=== PATIENT | male | born 1940 | race Caucasian/White ===

== ENCOUNTER 2019-04-28 07:12 | Outpatient (CLI) | payer MEDICARE, SELFPAY ==
--- NOTE | ~2019-04-28 | MR_ITS ---
EXAMINATION: MR lumbar spine wo con EXAM DATE: 04/28/2019 08:22 INDICATION: Lumbar radiculopathy. TECHNIQUE: Multi-sequential, multiplanar MR images of the lumbar spine were obtained without contrast . Sagittal T1, T2, T2 fat saturation images. Axial T2 weighted images. There is no prior study for comparison. FINDINGS: The vertebral bodies are aligned in the AP dimension. There is mild to moderate disc diseas e at all thoracolumbar levels. There are scattered lumbar hemangiomas most notable in L1, L2 and L5 v ertebral bodies. Paraspinal soft tissue is unremarkable. Right renal lesion imaged portion consistent with a cyst measuring 4 cm. The conus medullaris terminates at the T12-L1 level and has normal signa l intensity and morphology. Level by level evaluation: T12-L1: Disc does not extend beyond the endplate margin. Facet arthropathy: Mild. Neural foraminal stenosis: No stenosis. Central canal stenosis: No stenosis. L1-L2: There is a minimal diffuse disc bulge. Facet arthropathy: Mild. Neural foraminal stenosis: No stenosis. Central canal stenosis: No stenosis. L2-L3: There is a minimal diffuse disc bulge. Facet arthropathy: Mild. Neural foraminal stenosis: No stenosis. Central canal stenosis: No stenosis. L3-L4: There is a mild to moderate diffuse disc bulge. Facet arthropathy: Mild to moderate. Neural foraminal stenosis: Mild bilateral. Central canal stenosis: Mild. L4-L5: There is a moderate diffuse disc bulge. Facet arthropathy: Moderate . Ligamentum flavum enlargement. Small left synovial cyst projecting inte rnally. Neural foraminal stenosis: Mild to moderate left, mild right. Central canal stenosis: Mild to moderate. Left lateral recess narrowing.. L5-S1: There is a mild diffuse disc bulge. Facet arthropathy: Mild. Neural foraminal stenosis: Mild bilateral. Central canal stenosis: Mild. IMPRESSION: 1. Mild to moderate lumbar spondylosis. Reviewed, dictated and finalized at location A.
== END 2019-04-28 07:13 | disposition home or self-care (01) ==
PROVIDERS: PCP Family Medicine; Visit Provider Orthopaedic Surgery
DX: M47.26 Other spondylosis with radiculopathy, lumbar region (principal)
CPT/HCPCS: 72148

== ENCOUNTER 2019-10-23 10:18 | Outpatient (CLI) | payer MEDICARE, SELFPAY ==
[2019-10-23 10:58] LABS: Hematocrit 42.5 % (42.0-52.0); Hemoglobin 13.8 g/dL (14.0-18.0); Mean Corpuscular HGB Conc 32.5 g/dl (32-36); Mean Corpuscular Volume 95.5 fl (80-100); Mean Platelet Volume 10.5 fl (7.4-10.4); Platelet Count Result 174 k/mm3 (150-375); Red Blood Count 4.45 M/mm3 (4.6-6.20); Red Cell Distribution Width 12.8 % (11.5-14.5); White Blood Count 5.7 K/mm3 (4.5-10.0)
[2019-10-23 11:17] LABS: Alanine Aminotransferase 31 U/L (4-50); Alkaline Phosphatase 69 U/L (38-126); Anion Gap 5 mmol/L (8-16); Aspartate Amino Transferase 31 U/L (17-59); Bilirubin,Total 0.7 mg/dL (0.2-1.3); Blood Urea Nitrogen 21 mg/dL (9-20); Calcium 9.4 mg/dL (8.4-10.2); Carbon Dioxide 29 mmol/L (22-30); Chloride 102 mmol/L (98-107); Cholesterol 146 mg/dL (0-200); Estimated Glomerular Filt Rate 49; Glucose 158 mg/dL (75-110); HDL Direct 27 mg/dL; Potassium 4.7 mmol/L (3.4-5.0); Sodium 136 mmol/L (137-145); Triglycerides 268 mg/dL (<150)
[2019-10-23 11:29] LABS: LDL Cholesterol Direct 70 mg/dL
== END 2019-10-23 10:19 | disposition home or self-care (01) ==
PROVIDERS: PCP Family Medicine; Visit Provider Physician Assistant Medical
DX: E78.2 Mixed hyperlipidemia (principal); E11.9 Type 2 diabetes mellitus without complications; I10 Essential (primary) hypertension; Z13.220 Encounter for screening for lipoid disorders
CPT/HCPCS: 36415; 80053; 80061; 84443; 85027

== ENCOUNTER 2019-12-27 06:43 | Outpatient (NON) | payer MEDICARE, SELFPAY ==
[2019-12-28 01:03] LABS: SARS-CoV-2 RNA PCR Negative
== END 2019-12-27 06:44 ==
LOC: ANHCOVIDDT 06:43
PROVIDERS: PCP Family Medicine; Visit Provider Nurse Practitioner Family
DX: Z20.828 Contact with and (suspected) exposure to other viral communicable diseases (principal); R68.89 Other general symptoms and signs
CPT/HCPCS: 87635; C9803; U0003

== ENCOUNTER 2020-02-10 14:19 | Outpatient (CLI) | payer MEDICARE, SELFPAY ==
[2020-02-10 15:08] LABS: Anion Gap 10 mmol/L (8-16); Blood Urea Nitrogen 21 mg/dL (9-20); Calcium 9.7 mg/dL (8.4-10.2); Carbon Dioxide 26 mmol/L (22-30); Chloride 103 mmol/L (98-107); Estimated Glomerular Filt Rate 53; Glucose 147 mg/dL (75-110); Potassium 4.3 mmol/L (3.4-5.0); Sodium 139 mmol/L (137-145)
== END 2020-02-10 14:20 | disposition home or self-care (01) ==
PROVIDERS: PCP Family Medicine; Visit Provider Physician Assistant Medical
DX: N28.9 Disorder of kidney and ureter, unspecified (principal)
CPT/HCPCS: 36415; 80048

== ENCOUNTER → 2020-06-30 08:34 | Outpatient (CLI) | payer MEDICARE, SELFPAY ==
--- NOTE | ~2020-06-30 | XR_ITS ---
XR_CERV2-3V_CR DATE: 06/30/2020 08:57 INDICATION: Neck pain TECHNIQUE: Lateral, swimmer's, AP, open-mouth and odontoid views COMPARISON: 08/17/2009 cervical spine FINDINGS: Straightening of the cervical spine. C1 and C2 are normally aligned and the odontoid process is intact. No fracture or dislocation or locked facet or prevertebral soft tissue swelling. Very prominent anterior spurring at C3-4 and particularly C4-5, C5-C6 and C6-7 with moderately promin ent loss of disc space height at C5-6 and greater at C6-7. IMPRESSION: Multilevel degenerative disc disease, most severe at C6-7 Straightening of the cervical spine Reviewed, dictated and finalized at Location A. Reviewed, dictated and finalized at location B.
== END ==
PROVIDERS: PCP Family Medicine; Visit Provider Physician Assistant Medical
DX: M47.812 Spondylosis without myelopathy or radiculopathy, cervical region (principal)
CPT/HCPCS: 72040

== ENCOUNTER 2020-09-08 09:39 | Outpatient (CLI) | payer MEDICARE, SELFPAY ==
--- NOTE | ~2020-09-08 | XR_ITS ---
EXAMINATION: XR chest 2V 09/08/2020 10:02 INDICATION: Cough PROCEDURE: 2 view chest COMPARISON: 04/06/2018 FINDINGS: The lungs are clear. The cardiomediastinal silhouette is within normal limits. There are no pleural effusions. There is no pneumothorax suspected. IMPRESSION: 1: NO ACUTE CARDIOPULMONARY DISEASE. Reviewed, dictated and finalized at location A.
== END 2020-09-08 09:40 | disposition home or self-care (01) ==
PROVIDERS: PCP Family Medicine; Visit Provider Nurse Practitioner Family
DX: R05 Cough (principal)
CPT/HCPCS: 71046

== ENCOUNTER 2020-11-27 06:43 | Outpatient (CLI) | payer MEDICARE, SELFPAY ==
[2020-11-27 07:36] LABS: Hematocrit 40.7 % (42.0-52.0); Hemoglobin 13.2 g/dL (14.0-18.0); Mean Corpuscular HGB Conc 32.4 g/dl (32-36); Mean Corpuscular Hemoglobin 31.9 pg (26-34); Mean Corpuscular Volume 98.3 fl (80-100); Mean Platelet Volume 9.9 fl (7.4-10.4); Platelet Count Result 203 k/mm3 (150-375); Red Blood Count 4.14 M/mm3 (4.6-6.20); Red Cell Distribution Width 12.8 % (11.5-14.5); White Blood Count 8.6 K/mm3 (4.5-10.0)
[2020-11-27 08:04] LABS: Alanine Aminotransferase 38 U/L (4-50); Albumin Level 4.1 g/dL (3.5-5.1); Alkaline Phosphatase 75 U/L (38-126); Anion Gap 8 mmol/L (8-16); Aspartate Amino Transferase 31 U/L (17-59); Bilirubin,Total 0.8 mg/dL (0.2-1.3); Blood Urea Nitrogen 23 mg/dL (9-20); Calcium 9.3 mg/dL (8.4-10.2); Carbon Dioxide 26 mmol/L (22-30); Chloride 105 mmol/L (98-107); Cholesterol 126 mg/dL (0-200); Estimated Glomerular Filt Rate 49; Glucose 170 mg/dL (65-110); HDL Direct 26 mg/dL; Sodium 139 mmol/L (137-145); Triglycerides 312 mg/dL (<150)
[2020-11-27 08:10] LABS: LDL Cholesterol Direct 48 mg/dL
[2020-11-27 08:27] LABS: Prostate Specific Antigen 2.1 ng/mL (< OR = 4.0)
[2020-11-27 08:32] LABS: Creatinine Urine 124.3 mg/dL
[2020-11-27 14:15] LABS: Microalbumin Urine Random < 6.0 mg/L (0-16.7)
[2020-11-27 14:16] LABS: MALB Creatinine Ratio < 4.8 mg/g (0-30)
== END 2020-11-27 06:44 | disposition home or self-care (01) ==
PROVIDERS: PCP Family Medicine; Visit Provider Physician Assistant Medical
DX: E11.9 Type 2 diabetes mellitus without complications (principal); E78.2 Mixed hyperlipidemia; Z12.5 Encounter for screening for malignant neoplasm of prostate; N28.9 Disorder of kidney and ureter, unspecified
CPT/HCPCS: 36415; 80053; 80061; 82043; 84153; 85027; G0103

== ENCOUNTER 2020-12-07 08:48 | Outpatient (CLI) | payer MEDICARE, SELFPAY ==
[2020-12-07 09:29] LABS: Anion Gap 6 mmol/L (8-16); Blood Urea Nitrogen 23 mg/dL (9-20); Calcium 9.3 mg/dL (8.4-10.2); Carbon Dioxide 27 mmol/L (22-30); Chloride 104 mmol/L (98-107); Estimated Glomerular Filt Rate 49; Glucose 162 mg/dL (65-110); Potassium 4.7 mmol/L (3.4-5.0); Sodium 137 mmol/L (137-145)
== END 2020-12-07 08:49 | disposition home or self-care (01) ==
PROVIDERS: PCP Family Medicine; Visit Provider Physician Assistant Medical
DX: N28.9 Disorder of kidney and ureter, unspecified (principal)
CPT/HCPCS: 36415; 80048

== ENCOUNTER 2021-02-19 13:58 | Outpatient (CLI) | payer MEDICARE, SELFPAY ==
--- NOTE | ~2021-02-19 | US_ITS ---
EXAMINATION: US venous doppler [facility] DATE: 02/19/2021 15:24 INDICATION: Right lower limb swelling. TECHNIQUE: Grayscale ultrasound images without and with compression and Doppler ultrasound images of the bilateral lower extremity veins were obtained. COMPARISON: Ultrasound 02/05/2004 FINDINGS: The visualized portions of right common femoral vein, profunda (deep) femoral vein, femoral vein, pop liteal vein, peroneal veins, posterior tibial veins, and greater saphenous vein outflow are patent. The visualized portions of left common femoral vein, profunda femoral vein, femoral vein, popliteal v ein, peroneal veins, posterior tibial veins, and greater saphenous vein outflow are patent. There is a small left-sided Flood's cyst. IMPRESSION: 1. No deep venous thrombosis. 2. Small left-sided Flood's cyst. Reviewed, dictated and finalized at location A. 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
[2021-02-19 15:08] LABS: Anion Gap 8 mmol/L (8-16); Blood Urea Nitrogen 16 mg/dL (9-20); Calcium 9.4 mg/dL (8.4-10.2); Carbon Dioxide 28 mmol/L (22-30); Chloride 102 mmol/L (98-107); Estimated Glomerular Filt Rate 53; Glucose 224 mg/dL (65-110); Potassium 4.4 mmol/L (3.4-5.0); Sodium 138 mmol/L (137-145)
[2021-02-19 15:17] LABS: NT Pro B Type Natriuretic Pept 124 pg/mL (5-100)
== END 2021-02-19 13:59 | disposition home or self-care (01) ==
PROVIDERS: PCP Family Medicine; Visit Provider Physician Assistant Medical
DX: M79.661 Pain in right lower leg (principal); M79.89 Other specified soft tissue disorders; R60.9 Edema, unspecified; I50.21 Acute systolic (congestive) heart failure
CPT/HCPCS: 36415; 80048; 83880; 84443; 93970

== ENCOUNTER 2021-12-30 08:59 | Outpatient (CLI) | payer MEDICARE, SELFPAY ==
[2021-12-30 09:53] LABS: Appearance Urine Clear (Clear); Bilirubin Urine Negative (Negative); Blood Urine Negative (Negative); Color Urine Yellow (Yellow); Glucose Urine UA 3+ mg/dL (Negative); Ketones Urine Negative (Negative); Leukocyte Esterase Ur Negative LEU/UL (Negative); Nitrate Urine Negative (Negative); Protein Urine Negative (Negative); Urobilinogen Urine 0.2 mg/dL (<2.0); pH Urine 5.5 (5.0-9.0)
[2021-12-30 09:58] LABS: Squamous Epithelial Cell Urine Rare /hpf (Few); WBC Urine 0-3 /hpf
--- NOTE | 2021-12-30 10:01 | ECG_ITS ---
Measurements Intervals [place] Rate: 58 P: 34 CA: 273 QRS: -16 QRSD: 110 T: 12 QT: 401 QTc: 396 Interpretive Statements SINUS BRADYCARDIA WITH SINUS ARRHYTHMIA WITH FIRST DEGREE AV BLOCK DELAYED PRECORDIAL R/S TRANSITION ABNORMAL ECG NO PREVIOUS ECG AVAILABLE FOR COMPARISON Electronically Signed On 12-30-2021 10:14:17 [employer] by Dhruv Patterson D.O.
[2021-12-30 10:12] LABS: Hematocrit 40.5 % (42.0-52.0); Hemoglobin 12.9 g/dL (14.0-18.0); Mean Corpuscular HGB Conc 31.9 g/dl (32-36); Mean Corpuscular Hemoglobin 30.4 pg (26-34); Mean Corpuscular Volume 95.3 fl (80-100); Mean Platelet Volume 10.2 fl (7.4-10.4); Platelet Count Result 205 k/mm3 (150-375); Red Blood Count 4.25 M/mm3 (4.6-6.20); Red Cell Distribution Width 13.4 % (11.5-14.5); White Blood Count 7.5 K/mm3 (4.5-10.0)
[2021-12-30 10:22] LABS: Add Urine Microscopic? YES
[2021-12-30 10:37] LABS: NT Pro B Type Natriuretic Pept 79 pg/mL (5-100)
[2021-12-30 10:46] LABS: Anion Gap 10 mmol/L (8-16); Blood Urea Nitrogen 21 mg/dL (9-20); Calcium 8.8 mg/dL (8.4-10.2); Carbon Dioxide 26 mmol/L (22-30); Chloride 104 mmol/L (98-107); Estimated Glomerular Filt Rate 49; Glucose 155 mg/dL (65-110); Potassium 4.6 mmol/L (3.4-5.0); Sodium 140 mmol/L (137-145)
== END 2021-12-30 09:00 | disposition home or self-care (01) ==
PROVIDERS: PCP Family Medicine; Referring Provider Physician Assistant Medical; Visit Provider Nurse Practitioner Family
DX: Z01.818 Encounter for other preprocedural examination (principal); R60.9 Edema, unspecified; R94.31 Abnormal electrocardiogram [ECG] [EKG]
CPT/HCPCS: 36415; 80048; 81001; 83880; 84443; 85027; 93005

== ENCOUNTER 2022-03-03 14:43 | Outpatient (CLI) | payer MEDICARE, SELFPAY ==
[2022-03-03 15:31] LABS: Basophils Absolute Auto 0.1 K/mm3 (0.0-0.1); Basophils Percent Auto 0.9 % (0.2-1.2); Eosinophils Absolute Auto 0.5 K/mm3 (0-0.3); Eosinophils Percent Auto 7.5 % (0-4.4); Hematocrit 44.4 % (42.0-52.0); Immature Granulocyte Absolute 0.03 K/mm3 (0.00-0.031); Immature Granulocyte Percent A 0.4 % (0-0.5); Lymphocytes Absolute Auto 1.46 K/mm3 (0.9-3.2); Lymphocytes Percent Auto 21.5 % (18.3-44.2); Mean Corpuscular HGB Conc 31.5 g/dl (32-36); Mean Corpuscular Hemoglobin 30.1 pg (26-34); Mean Corpuscular Volume 95.5 fl (80-100); Mean Platelet Volume 10.4 fl (7.4-10.4); Monocytes Absolute Auto 0.7 K/mm3 (0.1-0.6); Monocytes Percent Auto 10.3 % (2.6-8.5); Neutrophils Percent Auto 59.4 % (45.5-73.1); Platelet Count Result 213 k/mm3 (150-375); Red Blood Count 4.65 M/mm3 (4.6-6.20); Red Cell Distribution Width 13.5 % (11.5-14.5); White Blood Count 6.8 K/mm3 (4.5-10.0)
[2022-03-03 15:42] LABS: Anion Gap 7 mmol/L (8-16); Blood Urea Nitrogen 15 mg/dL (9-20); Calcium 9.1 mg/dL (8.4-10.2); Carbon Dioxide 25 mmol/L (22-30); Chloride 106 mmol/L (98-107); Estimated Glomerular Filt Rate 49; Glucose 166 mg/dL (65-110); Potassium 4.4 mmol/L (3.4-5.0); Sodium 138 mmol/L (137-145)
== END 2022-03-03 14:44 | disposition home or self-care (01) ==
LOC: ANHLAB 14:46
PROVIDERS: PCP Family Medicine; Visit Provider Physician Assistant Medical
DX: R19.7 Diarrhea, unspecified (principal)
CPT/HCPCS: 36415; 80048; 85025

== ENCOUNTER 2022-07-01 14:52 | Outpatient (CLI) | payer MEDICARE, SELFPAY ==
[2022-07-01 15:46] LABS: Basophils Absolute Auto 0.1 K/mm3 (0.0-0.1); Basophils Percent Auto 0.9 % (0.2-1.2); Eosinophils Absolute Auto 0.5 K/mm3 (0-0.3); Eosinophils Percent Auto 6.3 % (0-4.4); Hematocrit 41.4 % (42.0-52.0); Hemoglobin 13.4 g/dL (14.0-18.0); Immature Granulocyte Absolute 0.03 K/mm3 (0.00-0.031); Immature Granulocyte Percent A 0.4 % (0-0.5); Lymphocytes Absolute Auto 1.27 K/mm3 (0.9-3.2); Lymphocytes Percent Auto 15.7 % (18.3-44.2); Mean Corpuscular HGB Conc 32.4 g/dl (32-36); Mean Corpuscular Volume 95.8 fl (80-100); Mean Platelet Volume 10.8 fl (7.4-10.4); Monocytes Absolute Auto 0.8 K/mm3 (0.1-0.6); Monocytes Percent Auto 9.4 % (2.6-8.5); Neutrophils Absolute Auto 5.4 K/mm3 (1.3-6.7); Neutrophils Percent Auto 67.3 % (45.5-73.1); Platelet Count Result 191 k/mm3 (150-375); Red Blood Count 4.32 M/mm3 (4.6-6.20); Red Cell Distribution Width 13.2 % (11.5-14.5); White Blood Count 8.1 K/mm3 (4.5-10.0)
[2022-07-01 15:48] LABS: Appearance Urine Clear (Clear); Bilirubin Urine Negative (Negative); Blood Urine Negative (Negative); Color Urine Yellow (Yellow); Glucose Urine UA 3+ mg/dL (Negative); Ketones Urine Negative (Negative); Leukocyte Esterase Ur Negative LEU/UL (Negative); Nitrate Urine Negative (Negative); Protein Urine Negative (Negative); Specific Grav Ur 1.023 (1.001-1.035); Urobilinogen Urine 0.2 mg/dL (<2.0)
[2022-07-01 15:56] LABS: Add Urine Microscopic? NO
[2022-07-01 16:03] LABS: Anion Gap 11 mmol/L (8-16); Blood Urea Nitrogen 27 mg/dL (9-20); Calcium 9.1 mg/dL (8.4-10.2); Carbon Dioxide 22 mmol/L (22-30); Chloride 103 mmol/L (98-107); Estimated Glomerular Filt Rate 49; Glucose 254 mg/dL (65-110); Potassium 4.8 mmol/L (3.4-5.0); Sodium 136 mmol/L (137-145)
== END 2022-07-01 14:53 | disposition home or self-care (01) ==
PROVIDERS: PCP Family Medicine; Visit Provider Orthopaedic Surgery
DX: M17.12 Unilateral primary osteoarthritis, left knee (principal); E11.9 Type 2 diabetes mellitus without complications; N28.9 Disorder of kidney and ureter, unspecified; I10 Essential (primary) hypertension
CPT/HCPCS: 36415; 80048; 81003; 83036; 85025

== ENCOUNTER 2022-08-17 08:41 | Outpatient (CLI) | payer MEDICARE, SELFPAY ==
--- NOTE | 2022-08-17 11:15 | NEURO_ITS ---
Impression: # Complains of weakness/cramping in left upper extremity. Patient is diabetic. # Evolving mild Carpal Tunnel Syndrome bilaterally. # Needle/EMG revealed decreased motor unit potentials bilaterally diffusely without fibrillations,compatible with complaints of weakness. Nerve Conduction Studies Anti Sensory Summary Table Stim Site NR Peak (ms) P-T Amp (?V) Site1 Site2 Delta-P (ms) Dist (cm) Han (m/s) Left Median Anti Sensory (2-3nd Digit) Wrist 5.0 17.4 Wrist 2-3nd Digit 5.0 14.0 28 Wrist 4.1 16.5 Wrist 2-3nd Digit 5.0 14.0 28 Right Median Anti Sensory (2-3nd Digit) Wrist 4.6 22.9 Wrist 2-3nd Digit 4.6 14.0 30 Wrist 4.2 23.6 Wrist 2-3nd Digit 4.6 14.0 30 Left Radial Anti Sensory (Base 1st Digit) Wrist 3.2 19.9 Wrist Base 1st Digit 3.2 0.0 Right Radial Anti Sensory (Base 1st Digit) Wrist 2.8 8.7 Wrist Base 1st Digit 2.8 0.0 Left Ulnar Anti Sensory (5th Digit) Wrist 3.4 33.8 Wrist 5th Digit 3.4 14.0 41 Right Ulnar Anti Sensory (5th Digit) Wrist 4.0 15.0 Wrist 5th Digit 4.0 14.0 35 Motor Summary Table Stim Site NR Onset (ms) O-P Amp (mV) Site1 Site2 Delta-0 (ms) Dist (cm) Han (m/s) Left Median Motor (Abd Poll Brev) Wrist 4.0 2.6 Elbow Wrist 6.9 31.0 45 Elbow 10.9 3.8 Right Median Motor (Abd Poll Brev) Wrist 3.8 3.2 Elbow Wrist 6.9 30.0 43 Elbow 10.7 1.6 Left Ulnar Motor (Abd Dig Minimi) Wrist 2.6 4.4 A Elbow Wrist 6.9 31.0 45 A Elbow 9.5 2.6 B Elbow Wrist 5.8 27.0 47 B Elbow 8.4 1.9 Right Ulnar Motor (Abd Dig Minimi) Wrist 2.4 3.0 A Elbow Wrist 7.4 31.0 42 A Elbow 9.8 2.3 F Wave Studies NR F-Lat (ms) L-R F-Lat (ms) Left Median (Mrkrs) (Abd Poll Brev) 33.98 1.19 Right Median (Mrkrs) (Abd Poll Brev) 35.17 1.19 Left Ulnar (Mrkrs) (Abd Dig Min) 33.70 0.33 Right Ulnar (Mrkrs) (Abd Dig Min) 34.03 0.33 EMG Side Muscle Nerve Root Ins Act Fibs Amp Dur Recrt Comment Right 1stDorInt Ulnar C8-T1 Nml Nml Nml >12ms Reduced Right Ext Indicis Radial (Post Int) C7-8 Nml Nml Nml >12ms Reduced Right Ext Digitorum Radial (Post Int) C7-8 Nml Nml Nml >12ms Reduced Right BrachioRad Radial C5-6 Nml Nml Nml >12ms Reduced Right PronatorTeres Median C6-7 Nml Nml Nml >12ms Reduced Right Abd Poll Brev Median C8-T1 Nml Nml Nml >12ms Reduced Left 1stDorInt Ulnar C8-T1 Nml Nml Nml >12ms Reduced Left Ext Indicis Radial (Post Int) C7-8 Nml Nml Nml >12ms Reduced Left Ext Digitorum Radial (Post Int) C7-8 Nml Nml Nml >12ms Reduced Left BrachioRad Radial C5-6 Nml Nml Nml >12ms Reduced Left PronatorTeres Median C6-7 Nml Nml Nml >12ms Reduced Left Abd Poll Brev Median C8-T1 Nml Nml Nml >12ms Reduced MTDD
== END 2022-08-17 08:42 | disposition home or self-care (01) ==
LOC: ANHNEURO 08:42
PROVIDERS: PCP Family Medicine; Visit Provider Plastic Surgery
DX: R53.1 Weakness (principal); G56.03 Carpal tunnel syndrome, bilateral upper limbs
CPT/HCPCS: 95886; 95911

== ENCOUNTER 2022-10-05 13:39 | Outpatient (CLI) | payer MEDICARE, SELFPAY ==
[2022-10-05 14:58] LABS: Basophils Absolute Auto 0.1 K/mm3 (0.0-0.1); Basophils Percent Auto 0.9 % (0.2-1.2); Eosinophils Absolute Auto 0.3 K/mm3 (0-0.3); Eosinophils Percent Auto 4.3 % (0-4.4); Hematocrit 40.4 % (42.0-52.0); Hemoglobin 12.9 g/dL (14.0-18.0); Immature Granulocyte Absolute 0.03 K/mm3 (0.00-0.031); Immature Granulocyte Percent A 0.4 % (0-0.5); Lymphocytes Absolute Auto 1.37 K/mm3 (0.9-3.2); Mean Corpuscular HGB Conc 31.9 g/dl (32-36); Mean Corpuscular Hemoglobin 31.2 pg (26-34); Mean Corpuscular Volume 97.8 fl (80-100); Mean Platelet Volume 10.6 fl (7.4-10.4); Monocytes Absolute Auto 0.8 K/mm3 (0.1-0.6); Monocytes Percent Auto 10.4 % (2.6-8.5); Platelet Count Result 183 k/mm3 (150-375); Red Blood Count 4.13 M/mm3 (4.6-6.20); Red Cell Distribution Width 12.6 % (11.5-14.5); White Blood Count 7.6 K/mm3 (4.5-10.0)
[2022-10-05 15:13] LABS: Anion Gap 8 mmol/L (8-16); Blood Urea Nitrogen 26 mg/dL (9-20); Calcium 9.2 mg/dL (8.4-10.2); Carbon Dioxide 26 mmol/L (22-30); Chloride 101 mmol/L (98-107); Estimated Glomerular Filt Rate 45; Glucose 229 mg/dL (65-110); Potassium 5.2 mmol/L (3.4-5.0); Sodium 135 mmol/L (137-145)
== END 2022-10-05 13:40 | disposition home or self-care (01) ==
LOC: ANHLAB 13:41
PROVIDERS: PCP Family Medicine; Visit Provider Physician Assistant Medical
DX: E11.9 Type 2 diabetes mellitus without complications (principal); I25.10 Atherosclerotic heart disease of native coronary artery without angina pectoris
CPT/HCPCS: 36415; 80048; 85025

== ENCOUNTER 2022-10-19 14:53 | Outpatient (CLI) | payer MEDICARE, SELFPAY ==
[2022-10-19 16:34] LABS: Anion Gap 9 mmol/L (8-16); Blood Urea Nitrogen 26 mg/dL (9-20); Calcium 9.4 mg/dL (8.4-10.2); Carbon Dioxide 25 mmol/L (22-30); Chloride 101 mmol/L (98-107); Estimated Glomerular Filt Rate 45; Glucose 245 mg/dL (65-110); Potassium 4.7 mmol/L (3.4-5.0); Sodium 135 mmol/L (137-145)
== END 2022-10-19 14:54 | disposition home or self-care (01) ==
PROVIDERS: PCP Family Medicine; Visit Provider Physician Assistant Medical
DX: E87.5 Hyperkalemia (principal); N18.30 Chronic kidney disease, stage 3 unspecified
CPT/HCPCS: 36415; 80048

== ENCOUNTER → 2022-11-24 12:12 | Outpatient (CLI) | payer MEDICARE, SELFPAY ==
--- NOTE | ~2022-11-24 | US_ITS ---
Renal-Bladder ultrasound Clinical History: Chronic kidney disease Technique: Real-time sonographic imaging of the kidneys and urinary bladder was performed. Findings: The right kidney measures 10.0 cm in length and the left kidney measures 10.8 cm. There is no hydronephrosis or renal calculus identified. Renal cortical echogenicity is within normal limits. Simple right renal cyst noted. The urinary bladder is partially distended at the time of this exam. No intraluminal echoes are ident ified. No abnormal wall thickening is seen. Impression: No significant abnormality seen. Reviewed, dictated and finalized at location M. Impression: No significant abnormality seen.
== END ==
PROVIDERS: PCP Internal Medicine Nephrology; Visit Provider Internal Medicine Nephrology
DX: I12.9 Hypertensive chronic kidney disease with stage 1 through stage 4 chronic kidney disease, or unspecified chronic kidney disease (principal); N18.31 Chronic kidney disease, stage 3a; E11.22 Type 2 diabetes mellitus with diabetic chronic kidney disease
CPT/HCPCS: 76775

== ENCOUNTER 2022-12-23 12:53 | Outpatient (CLI) | payer MEDICARE, SELFPAY ==
[2022-12-23 13:37] LABS: Total Protein Urine Random 11 mg/dL; Ur Ttl Prot Creatinine Ratio 0.14 mg/mg (0-0.20)
[2022-12-23 13:39] LABS: Sodium Urine Random 58 meq/L
[2022-12-23 13:45] LABS: Albumin Level 4.3 g/dL (3.5-5.1); Anion Gap 11 mmol/L (8-16); Blood Urea Nitrogen 22 mg/dL (9-20); Calcium 9.8 mg/dL (8.4-10.2); Carbon Dioxide 25 mmol/L (22-30); Chloride 101 mmol/L (98-107); Estimated Glomerular Filt Rate 42; Glucose 201 mg/dL (65-110); Phosphorus 4.7 mg/dL (2.5-4.5); Sodium 137 mmol/L (137-145)
[2022-12-23 13:54] LABS: Complement C3 117 mg/dL (88-165)
[2022-12-26 15:16] LABS: Albumin 3.7 g/dL (3.8-4.8); Alpha 1 Globulin 0.3 g/dL (0.2-0.3); Alpha 2 Globulin 0.8 g/dL (0.5-0.9); Beta 1 Globulin 0.4 g/dL (0.4-0.6); Gamma Globulin 0.8 g/dL (0.8-1.7); Protein, Total 6.3 g/dL (6.1-8.1)
[2022-12-27 19:04] LABS: Anti Glomerular Basement Memb <1.0 AI (<1.0)
[2022-12-28 03:43] LABS: ANCA Screen Negative (Negative)
[2022-12-29 06:26] LABS: Creatinine, Random Urine 74 mg/dL (20-320); Total Protein/Creatinine Ratio 81 mg/g creat (25-148)
== END 2022-12-23 12:54 | disposition home or self-care (01) ==
LOC: ANHLAB 12:55
PROVIDERS: PCP Internal Medicine Nephrology; Visit Provider Internal Medicine Nephrology
DX: I12.9 Hypertensive chronic kidney disease with stage 1 through stage 4 chronic kidney disease, or unspecified chronic kidney disease (principal); E11.22 Type 2 diabetes mellitus with diabetic chronic kidney disease
CPT/HCPCS: 36415; 80069; 82570; 83520; 84155; 84156; 84165; 84166; 84300; 86036; 86038; 86160; 86225

== ENCOUNTER 2023-02-23 13:22 | Outpatient (CLI) | payer MEDICARE, SELFPAY ==
--- NOTE | ~2023-02-23 | XR_ITS ---
EXAMINATION: XR sacroiliac jt inj w imag RT DATE: 02/23/2023 14:18 INDICATION: Sacrococcygeal disorders, not elsewhere classified. TECHNIQUE: A time-out was performed to verify the patient's name, date of , and procedure to b e performed. The procedure including the risks, benefits, and alternatives was discussed with the pat ient. Risks discussed included bleeding and infection. The patient understood the risks and agreed to proceed. The skin overlying the right sacroiliac joint was prepped and draped in usual sterile fash ion. Anesthetic was administered with 1% lidocaine subcutaneously. A 22 G needle was advanced under fluoroscopic guidance into the joint. Subsequently, injectate consisting of 2 mL 1% lidocaine and 1 mL 40 mg/mL Kenalog was instilled. The needle was removed and the entry site was cleaned and dresse d. There were no immediate complications. Fluoroscopy exposure time was 0.1 minutes. The total numbe r of images was 1. FINDINGS: Real-time fluoroscopy demonstrates the needle in the right sacroiliac joint. IMPRESSION: 1. Fluoroscopy guided right sacroiliac joint injection of local anesthetic and steroid. Reviewed, dictated and finalized at location A. [employer]ILITIES
== END 2023-02-23 13:23 | disposition home or self-care (01) ==
PROVIDERS: PCP Family Medicine; Visit Provider Nurse Practitioner Family
DX: M53.3 Sacrococcygeal disorders, not elsewhere classified (principal)
CPT/HCPCS: 27096; G0260; J3301

== ENCOUNTER 2023-04-17 10:07 | Outpatient (CLI) | payer MEDICARE, SELFPAY ==
[2023-04-17 13:54] LABS: Albumin Level 4.3 g/dL (3.5-5.1); Anion Gap 6 mmol/L (8-16); Blood Urea Nitrogen 23 mg/dL (9-20); Calcium 9.9 mg/dL (8.4-10.2); Carbon Dioxide 23 mmol/L (22-30); Chloride 105 mmol/L (98-107); Estimated Glomerular Filt Rate 49; Glucose 162 mg/dL (65-110); Phosphorus 3.8 mg/dL (2.5-4.5); Potassium 4.5 mmol/L (3.4-5.0); Sodium 134 mmol/L (137-145)
[2023-04-17 14:21] LABS: Parathyroid Intact 71.6 pg/mL (7.5-53.5)
[2023-04-17 14:27] LABS: Total Protein Urine Random 9 mg/dL
[2023-04-17 14:39] LABS: Vitamin D 25 Hydroxy 37.9 ng/mL
== END 2023-04-17 10:08 | disposition home or self-care (01) ==
LOC: ANHLAB 10:11
PROVIDERS: PCP Family Medicine; Visit Provider Internal Medicine Nephrology
DX: I12.9 Hypertensive chronic kidney disease with stage 1 through stage 4 chronic kidney disease, or unspecified chronic kidney disease (principal); N18.32 Chronic kidney disease, stage 3b; E11.22 Type 2 diabetes mellitus with diabetic chronic kidney disease; N25.81 Secondary hyperparathyroidism of renal origin; E55.9 Vitamin D deficiency, unspecified
CPT/HCPCS: 36415; 80069; 82306; 82570; 83970; 84156

== ENCOUNTER 2023-04-20 16:31 | Outpatient (CLI) | payer MEDICARE, SELFPAY ==
[2023-04-20 17:06] LABS: Basophils Absolute Auto 0.1 K/mm3 (0.0-0.1); Basophils Percent Auto 0.6 % (0.2-1.2); Eosinophils Absolute Auto 0.3 K/mm3 (0-0.3); Eosinophils Percent Auto 3.5 % (0-4.4); Hemoglobin 14.8 g/dL (14.0-18.0); Immature Granulocyte Absolute 0.06 K/mm3 (0.00-0.031); Immature Granulocyte Percent A 0.7 % (0-0.5); Lymphocytes Absolute Auto 1.53 K/mm3 (0.9-3.2); Lymphocytes Percent Auto 17.2 % (18.3-44.2); Mean Corpuscular HGB Conc 31.5 g/dl (32-36); Mean Corpuscular Hemoglobin 30.8 pg (26-34); Mean Corpuscular Volume 97.7 fl (80-100); Mean Platelet Volume 10.5 fl (7.4-10.4); Monocytes Absolute Auto 0.7 K/mm3 (0.1-0.6); Monocytes Percent Auto 7.3 % (2.6-8.5); Neutrophils Absolute Auto 6.3 K/mm3 (1.3-6.7); Neutrophils Percent Auto 70.7 % (45.5-73.1); Platelet Count Result 201 k/mm3 (150-375); Red Blood Count 4.81 M/mm3 (4.6-6.20); Red Cell Distribution Width 12.9 % (11.5-14.5); White Blood Count 8.9 K/mm3 (4.5-10.0)
[2023-04-20 17:08] LABS: Appearance Urine Clear (Clear); Bilirubin Urine Negative (Negative); Blood Urine Negative (Negative); Color Urine Yellow (Yellow); Glucose Urine UA 3+ mg/dL (Negative); Ketones Urine Negative (Negative); Leukocyte Esterase Ur Negative LEU/UL (Negative); Nitrate Urine Negative (Negative); Protein Urine Negative (Negative); Specific Grav Ur 1.026 (1.001-1.035); Urobilinogen Urine 0.2 mg/dL (<2.0)
[2023-04-20 17:11] LABS: Add Urine Microscopic? NO
[2023-04-20 19:11] LABS: Prostate Specific Antigen 3.1 ng/mL (< OR = 4.0)
== END 2023-04-20 16:32 | disposition home or self-care (01) ==
PROVIDERS: PCP Family Medicine; Referring Provider Orthopaedic Surgery; Visit Provider Physician Assistant Medical
DX: R39.12 Poor urinary stream (principal); Z12.5 Encounter for screening for malignant neoplasm of prostate; E11.22 Type 2 diabetes mellitus with diabetic chronic kidney disease; M17.12 Unilateral primary osteoarthritis, left knee; N18.30 Chronic kidney disease, stage 3 unspecified; R53.83 Other fatigue
CPT/HCPCS: 36415; 81003; 84153; 85025; G0103

== ENCOUNTER 2023-07-14 11:54 | Outpatient (CLI) | payer MEDICARE, SELFPAY ==
--- NOTE | 2023-07-14 13:11 | ECG_ITS ---
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 Measurements Intervals [place] Rate: 60 P: 62 CA: 297 QRS: -33 QRSD: 92 T: 11 QT: 386 QTc: 387 Interpretive Statements SINUS RHYTHM WITH FIRST DEGREE AV BLOCK LOW QRS VOLTAGE IN PRECORDIAL LEADS BORDERLINE R WAVE PROGRESSION, ANTERIOR LEADS BORDERLINE ECG No previous ECG available for comparison Electronically Signed On 07-14-2023 14:50:35 CDT by Dhruv Patterson D.O.
[2023-07-14 14:17] LABS: Basophils Absolute Auto 0.1 K/mm3 (0.0-0.1); Basophils Percent Auto 0.8 % (0.2-1.2); Eosinophils Absolute Auto 0.5 K/mm3 (0-0.3); Eosinophils Percent Auto 5.5 % (0-4.4); Hematocrit 47.1 % (42.0-52.0); Hemoglobin 14.8 g/dL (14.0-18.0); Immature Granulocyte Absolute 0.03 K/mm3 (0.00-0.031); Immature Granulocyte Percent A 0.4 % (0-0.5); Lymphocytes Absolute Auto 1.51 K/mm3 (0.9-3.2); Lymphocytes Percent Auto 17.7 % (18.3-44.2); Mean Corpuscular HGB Conc 31.4 g/dl (32-36); Mean Corpuscular Volume 98.5 fl (80-100); Mean Platelet Volume 10.4 fl (7.4-10.4); Monocytes Absolute Auto 0.7 K/mm3 (0.1-0.6); Monocytes Percent Auto 8.7 % (2.6-8.5); Neutrophils Absolute Auto 5.7 K/mm3 (1.3-6.7); Neutrophils Percent Auto 66.9 % (45.5-73.1); Platelet Count Result 210 k/mm3 (150-375); Red Blood Count 4.78 M/mm3 (4.6-6.20); Red Cell Distribution Width 12.9 % (11.5-14.5); White Blood Count 8.5 K/mm3 (4.5-10.0)
[2023-07-14 14:41] LABS: INR 1.1; Partial Thromboplastin Time 28.5 Seconds (22.3-36.8); Prothrombin Time 14.6 Seconds (11.1-14.7)
[2023-07-14 15:11] LABS: Albumin Level 4.5 g/dL (3.5-5.1); Anion Gap 7 mmol/L (4-12); Blood Urea Nitrogen 24 mg/dL (9-20); Calcium 10.1 mg/dL (8.4-10.2); Carbon Dioxide 25 mmol/L (22-30); Chloride 107 mmol/L (98-107); Estimated Glomerular Filt Rate 42; Glucose 151 mg/dL (65-110); Potassium 4.7 mmol/L (3.4-5.0); Sodium 139 mmol/L (137-145)
[2023-07-14 15:22] LABS: Appearance Urine Clear (Clear); Bacteria Urine None Seen /hpf; Bilirubin Urine Negative (Negative); Blood Urine Negative (Negative); Color Urine Yellow (Yellow); Glucose Urine UA 3+ mg/dL (Negative); Ketones Urine Negative (Negative); Leukocyte Esterase Ur Negative LEU/UL (Negative); Need Manual Microscopic Reviewed; Nitrate Urine Negative (Negative); Protein Urine Trace mg/dL (Negative); RBC Urine 0-2 /hpf (0-2); Specific Grav Ur 1.027 (1.001-1.035); Squamous Epithelial Cell Urine None Seen /hpf (Few); Urobilinogen Urine 0.2 mg/dL (<2.0); WBC Urine 0-5 /hpf (0-3)
[2023-07-14 15:23] LABS: Add Urine Microscopic? YES
[2023-07-14 15:28] LABS: Urine Cotinine NEGATIVE
[2023-07-14 15:56] LABS: MRSA (PCR) NOT DETECTED (NOT DETECTE)
[2023-07-14 16:26] LABS: Hemoglobin A1C 6.6 % (<5.7)
== END 2023-07-14 11:55 | disposition home or self-care (01) ==
LOC: ANHSURGERY 12:04
PROVIDERS: PCP Family Medicine; Visit Provider Orthopaedic Surgery
DX: Z01.818 Encounter for other preprocedural examination (principal); M17.12 Unilateral primary osteoarthritis, left knee; I44.0 Atrioventricular block, first degree
CPT/HCPCS: 80048; 80307; 81001; 82040; 83036; 85025; 85610; 85730; 87641; 93005

== ENCOUNTER 2023-08-01 00:31 | Day surgery (SDC) | payer MEDICARE, SELFPAY ==
[2023-07-14 12:10] VITALS: BMI 35.4
--- NOTE | 2023-07-14 12:47 | PC.NURSE ---
Report to the Outpatient Waiting Room, entrance under the green pavilion located off [facility], at time __1000 on date __08/01/23 . Planned Procedure Time: _1200 . Time changes happen often and if your time is changed the preop area will call you the afternoon before. - You and your visitor will be asked to self-screen and do not enter if you have any COVID symptoms. - A mask is optional within the hospital at this time. Patients may have clear liquids (water, carbonated beverages, clear teas, apple juice) until 3 hours prior to surgery ( 9:00 AM)with a maximum of 20 ounces. - No food from midnight until time of surgery - Infants may have breast milk until 4 hours before surgery, formula 6 hours prior to surgery. - Children will be allowed to drink immediately following surgery. If applicable, please bring a bottle or sippy cup to assist with drinking. Juice, water, soda, and popsicles are readily available. For infants on formula, please bring formula the day of surgery. Pacifiers are allowed. Take the following medications with a SIP of water the morning of surgery: NONE DO NOT STOP ANY OF YOUR OTHER PRESCRIPTION MEDICATIONS PRIOR TO SURGERY ?EXCEPT THE FOLLOWING Medications to discontinue per physician NONE TOTAL JOINT CLASS JULY 18 AT 10 AM Please no make-up, nail nepali, hairspray, perfume, deodorant, or body powder the day of surgery. No jewelry (including any body piercings) or valuables the day of surgery, leave them at home. Please take a shower or bath the night before, or the morning of, surgery with an antibacterial soap. Wear comfortable, loose fitting clothing. Children are encouraged to wear pajamas. - Jewelry must be removed prior to entering the operating room. Rings and piercings that are not removed may be cut off. - The hospital will not accept responsibility for valuables. - Please leave all valuables, including medications, at home the day of surgery. If you are going home after surgery, a licensed recycle driver must drive you home. - NO public transportation without another adult if you receive anesthesia. - We recommend that an adult stay with you for 24 hours following discharge. - We also recommend that you do not drive, make important decision, drink alcoholic beverages, or take any drugs that were not prescribed by your health care provider for at least 24 hours after your discharge time. Follow any additional instructions given to you from your surgeon. If you or anyone in your household have experienced Covid symptoms in the past week, please notify your surgeon or the nurse liaison at the phone number below for possible testing. VERBAL AND WRITTEN instructions given to _PATIENT AND ANN and asked if any additional questions and then verbalized understanding. Patient advised to call surgeon office or pre surgery nurse liaison [phone] if any additional questions.
[2023-07-14 13:08] VITALS: BP 138/64; PULSE 63; RESP 18; TEMP 36.7; O2SAT 98
[2023-08-01] VITALS (13 sets, daily range): BP systolic 138–172; BP diastolic 57–77; PULSE 65–86; RESP 14–20; TEMP 36.1–36.5; O2SAT 94–100; BMI 35.0
--- NOTE | ~2023-08-01 | XR_ITS ---
EXAMINATION: [id number] DATE: 08/01/2023 15:15 CDT INDICATION: Left knee arthroplasty TECHNIQUE: 2 views left knee FINDINGS: There is a left total knee arthroplasty in expected position. Subcutaneous gas with fluid and air in the joint and overlying skin mic are consistent with recent surgery. No evidence of pe riprosthetic fracture. There is a healed proximal left fibular fracture. IMPRESSION: 1. Recent left total knee arthroplasty. Reviewed, dictated and finalized at location B.
[2023-08-01] MEDS: ACETAMINOPHEN 500 MG TABLET 1000 MG PO (10:48)
--- NOTE | 2023-08-01 11:08 | WPDHPUPDATE1 ---
History and Physical Update Update Date/Time: 08/01/23 11:08 History and Physical has been reviewed, including an updated exam of the patient. There are NO changes in the patient's condition. Risks, benefits, and alternatives have been discussed and questions answered. Patient agrees to proceed with procedure.
[2023-08-01 11:28] LABS: Glucose Point of Care 147 mg/dl (65-105)
--- NOTE | 2023-08-01 11:46 | WPDANESEPPF ---
Anes - Initial Pre Proc Eval Procedure: Operation Date: 08/01/23 12:00 Proposed Procedures p Left Total Knee Arthroplasty - Gilberto Ford MD Date/Time: 08/01/23 11:46 Surgeon: Gilberto Ford MD Pre Op Diagnosis: Lt Knee DJD Patient Data Age: 82 Gender: M Height: 1.85 m Weight: 120.6 kg Last Vital Signs Temp 98.0 F 07/14/23 13:08 Pulse 63 07/14/23 13:08 Resp 18 07/14/23 13:08 BP 138/64 07/14/23 13:08 Pulse Ox 98 07/14/23 13:08 O2 Del Method Room Air 07/14/23 13:08 Allergies Allergy/AdvReac Type Severity Reaction Status Date / Time clindamycin Allergy Unknown Rash Verified 08/01/23 11:33 tetracycline Allergy Unknown Rash Verified 08/01/23 11:33 Home Medications Medication Instructions Recorded Confirmed Type blood sugar diagnostic (OneTouch See Rx Instructions .Route 01/18/21 07/24/23 Rx Ultra Test strips) .COMPLEX #100 strips duloxetine 60 mg capsule,delayed See Rx Instructions .Route 11/30/22 07/24/23 Rx release .COMPLEX #90 caps metoprolol succinate 50 mg 50 mg PO DAILY #90 tabs 03/03/23 07/24/23 Rx tablet,extended release 24 hr spironolactone 25 mg tablet 25 mg PO DAILY 05/30/23 07/24/23 History semaglutide 2 mg/dose (8 mg/3 mL) 2 mg (0.75 mL) subcut WEEKLY #3 mL 06/19/23 08/01/23 Rx subcutaneous pen injector (Ozempic) acetaminophen 500 mg capsule 1,000 mg PO Q6H PRN Pain 07/14/23 07/24/23 History empagliflozin 10 mg tablet 10 mg PO DAILY 07/14/23 07/24/23 History (Jardiance) nystatin-triamcinolone 100,000 1 applic topical PRN PRN YEAST 07/14/23 07/24/23 History unit/g-0.1 % topical cream INFECTIONS rosuvastatin 10 mg tablet 10 mg PO DAILY 07/14/23 07/24/23 History colchicine 0.6 mg capsule 0.6 mg PO .PRN 07/17/23 07/24/23 History chlorhexidine gluconate 4 % 1 applic topical DAILY #237 mL 07/21/23 07/24/23 Rx topical liquid (Hibiclens) Laboratory Tests 08/01/23 08/01/23 10:37 11:16 POC Capillary Glucose 147 H mg/dl (65-105) Blood Type O Positive Antibody Screen Negative Patient hx anesthesia problems: none Family hx anesthesia problems: none Results Review: All pre-operative results and documents have been reviewed as part of the pre-operative evaluation. 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, ankle, left Effusion, left knee Encounter for screening colonoscopy Essential (primary) hypertension Left ankle pain Left knee DJD Left knee pain Low kidney function Lumbar radicular pain Mixed hyperlipidemia RODY (obstructive sleep apnea) Persistent dry cough Piriformis syndrome of left side Polyuria Pre-op testing Preoperative clearance Right hip pain Screening for prostate cancer SI joint arthritis Sleep apnea in adult Type 2 diabetes mellitus without complications Weak urinary stream Surgical History Surgical History History of surgery on arm Hx of heart artery stent Family History Family History Father Family history of diabetes mellitus in first degree relative Tuberculosis Diabetes mellitus Mother Family history of diabetes mellitus in first degree relative Acute myocardial infarction COPD (chronic obstructive pulmonary disease) Tobacco abuse Sibling Pacemaker Hypertension Diabetes mellitus Other Family history of gout Social History Social History Smoking status: Never smoker Second hand tobacco smoke exposure: Yes Additional smoking assessment comments: DENIES ANY FORM OF TOBACCO USE Alcohol intake: current S
[2023-08-01] MEDS: LACTATED RINGERS 1,000 ML 30 ML IV CONT ×2 (12:00→15:00)
--- NOTE | 2023-08-01 12:21 | WPDANESPNB ---
Anes - Peripheral Nerve Block Date/Time: 08/01/23 12:21 I have discussed with the patient/family/POA the placement of a peripheral nerve block for post-operative pain management, including associated risks, benefits, complications, and side effects. Alternative methods of post-operative analgesia were detailed. Questions were solicited and answers provided to the satisfaction of the patient/family/POA. Time-Out: A pre-procedural Time-Out was completed immediately before starting the procedure and confirmed: Patient Identification, Site, Procedure, Patient Position and the Availability of Requisite Equipment. Clinical Indications: Acute post-operative pain management requested by the operative surgeon. Nerve Block Insertion Note Anes-nerve block: adductor canal left Patient position: supine Skin prep: chlorhexidine Needle: 22 gauge, stimulating, insulated echogenic needle. Needle length: 80 mm Technique: ultrasound Injectate: other (Bupiv 0.5%, 10 mls. ) Observations: tolerated well Procedure start time:: 121 Procedure end time:: 1218
[2023-08-01] MEDS: ceFAZolin 3 GM/D5W 100 ML 100 ML IVPB (12:40)
[2023-08-01] MEDS: TRANEXAMIC ACID 1,000MG/ISO100 1,000 MG/100 ML BAG 200 MG IVPB (12:50)
[2023-08-01] MEDS: SODIUM CHLORIDE 0.9% IV 37.7 ML, MORPHINE SULFATE INJ (*CRX) 2 MG, ROPivacaine HCL 1% 2... INFILTRATE (13:20)
--- NOTE | 2023-08-01 15:02 | W.PM.PROC2 ---
Procedure Note - Detailed Date of Procedure 08/01/23 Pre-op Diagnosis Lt Knee DJD Post-op Diagnosis Same Procedure Performed L TKA Surgeon Gilberto Ford MD Anesthesia General Description of Procedure THE LEFT KNEE WAS PREPPED AND DRAPED IN THE STERILE FASHION. THERE WAS A 15 DEGREE FLEXION CONTRACTURE. A MIDLINE SKIN INCISION WAS MADE. A MEDIAL PARAPATELLAR ARTHROTOMY WAS MADE. THE PATELLA WAS EVERTED. THERE WAS TRICOMPARTMENT DJD. THERE WAS MINIMAL PATELLA DJD. AN INTRAMEDULLARY KAIT WAS PLACED IN THE FEMUR. A DISTAL FEMORAL CUT WAS MADE IN 5 DEGREES OF VALGUS REMOVING APPROXIMATELY 9 MM OF BONE FROM THE DISTAL FEMUR. THE FEMUR WAS SIZED TO 65. A 65 FEMORAL CUTTING BLOCK WAS PLACED IN 3 DEGREES OF EXTERNAL ROTATION AND IN ALIGNMENT WITH JUAN'S LINE AND THE TRANSEPICONDYLAR AXIS. ANTERIOR POSTERIOR AND CHAMFER CUTS WERE MADE. THE CUTS WERE EXCELLENT. NEXT AN INTRAMEDULLARY CUTTING GUIDE WAS PLACED IN THE TIBIA. A TRANS TIBIAL CUT WAS MADE ALONG THE LONG AXIS OF THE TIBIA. APPROXIMATELY 10 MM OF BONE WAS REMOVED FROM THE HIGH SIDE OF THE TIBIA. THE TIBIA WAS THEN PLANED TO A SMOOTH SURFACE. POSTERIOR FEMORAL OSTEOPHYTES WERE REMOVED FROM THE FEMORAL CONDYLES. A 75 TIBIAL TRIAL WAS PLACED IN ALIGNMENT WITH THE 1/3 MEDIAL ASPECT OF THE TIBIAL TUBERCLE. THEN A 72.5 FEMORAL TRIAL COMPONENT WAS PLACED. BOTH HAD EXCELLENT FITS. EVENTUALLY A 10 MM CR POLYETHYLENE TRIAL COMPONENT WAS PLACED. THE KNEE WAS TAKEN THROUGH A RANGE OF MOTION. THE KNEE CAME OUT TO FULL EXTENSION. THERE WAS NO ABNORMAL TILT TO THE PATELLA. THERE WAS GOOD A/P AND VARUS/VALGUS STABILITY. THERE WAS NO EXCESSIVE ROLL BACK WITH FLEXION. THE TRIAL COMPONENTS WERE REMOVED. THEN A 72.5 FEMORAL COMPONENT AND 75 TIBIAL COMPONENT WITH A 10 CR POLYETHYLENE COMPONENT WERE CEMENTED INTO PLACE. ONCE THE CEMENT WAS HARD THE KNEE WAS TAKEN THROUGH A ROM AGAIN AND FOUND TO BE STABLE WITH NO PATELLA TILT NO EXCESSIVE ROLL BACK WITH FLEXION AND GOOD STABILITY WITH COMPLETE AND FULL EXTENSION. THE KNEE WAS IRRIGATED WITH STERILE BETADINE AND WATER FOR ABOUT 3 MINUTES. THE BLEEDERS WERE CAUTERIZED. THE ARTHROTOMY WAS REPAIRED WITH NUMBER 1 VICRYL. THE SUB CUTANEOUS LAYER WITH 2-0 VICRYL AND THE SKIN WITH MIKEL. THE WOUND WAS WASHED AND A STERILE DRESSING WAS APPLIED. PATIENT WAS EXTUBATED. Estimated Blood Loss 100 Pathology None sent Complications No immediate complications Condition Stable Disposition PACU
[2023-08-01] MEDS: fentaNYL CITRATE INJ (*CRX) 100 MCG/2 ML VIAL 25 MCG IV PUSH ×6 (15:27→16:25)
--- NOTE | 2023-08-01 16:40 | ADMGEN ---
This patient, Ruiz Morse, was admitted to Medical Room 341-01. Patient/family oriented to hospital policies and general routines including ID bracelet, bed and alarms, visiting hours, pain management, procedures, bathroom and other care routines, personal items, smoking policy, room service/diet, and visiting hours. Information on how to activate the Rapid Response Team has been discussed. Patient/Family are encouraged to report perceived risks to care and to ask questions if they do not understand what they are told or what they should do.
[2023-08-01] MEDS: oxyCODONE/ACETAMINOPHEN (*CRX) 5-325 MG TABLET 1 TABLET PO (17:13)
[2023-08-01] MEDS: SODIUM CHLORIDE 0.9% IV 1,000 ML 125 ML IV CONT (17:13)
[2023-08-01] MEDS: SENNA/DOCUSATE SODIUM TABLET 2 TAB PO (17:20)
[2023-08-01] MEDS: CELECOXIB 200 MG CAPSULE PO (17:23)
[2023-08-01] MEDS: ceFAZolin 2 GM/D5W 50 ML 2 GM/50 ML BAG IVPB (20:16)
[2023-08-01] MEDS: METOPROLOL SUCCINATE EXT REL 50 MG TABCR PO (20:17)
[2023-08-01] MEDS: FAMOTIDINE 20 MG TABLET PO (20:17)
[2023-08-01] MEDS: DULoxetine HCL 60 MG CAPSULE.DR PO (20:17)
[2023-08-01] MEDS: RIVAROXABAN 10 MG TABLET PO (23:14)
[2023-08-02 02:18] VITALS: BP 153/50; PULSE 59; RESP 20; TEMP 36.1; O2SAT 99
[2023-08-02] MEDS: oxyCODONE/ACETAMINOPHEN (*CRX) 10-325 MG TABLET 1 TAB PO (02:33)
[2023-08-02] MEDS: ceFAZolin 2 GM/D5W 50 ML 2 GM/50 ML BAG IVPB ×2 (03:03→12:12)
[2023-08-02 05:36] LABS: Basophils Absolute Auto 0.1 K/mm3 (0.0-0.1); Basophils Percent Auto 0.6 % (0.2-1.2); Eosinophils Absolute Auto 0.3 K/mm3 (0-0.3); Eosinophils Percent Auto 2.1 % (0-4.4); Hemoglobin 13.7 g/dL (14.0-18.0); Immature Granulocyte Absolute 0.08 K/mm3 (0.00-0.031); Immature Granulocyte Percent A 0.5 % (0-0.5); Lymphocytes Absolute Auto 1.57 K/mm3 (0.9-3.2); Lymphocytes Percent Auto 9.8 % (18.3-44.2); Mean Corpuscular HGB Conc 30.4 g/dl (32-36); Mean Corpuscular Hemoglobin 31.1 pg (26-34); Mean Corpuscular Volume 102.3 fl (80-100); Mean Platelet Volume 10.2 fl (7.4-10.4); Monocytes Absolute Auto 1.4 K/mm3 (0.1-0.6); Monocytes Percent Auto 8.7 % (2.6-8.5); Neutrophils Absolute Auto 12.6 K/mm3 (1.3-6.7); Neutrophils Percent Auto 78.3 % (45.5-73.1); Platelet Count Result 198 k/mm3 (150-375); Red Cell Distribution Width 12.5 % (11.5-14.5); White Blood Count 16.1 K/mm3 (4.5-10.0)
[2023-08-02 05:53] LABS: Anion Gap 11 mmol/L (4-12); Blood Urea Nitrogen 21 mg/dL (9-20); Calcium 8.9 mg/dL (8.4-10.2); Carbon Dioxide 24 mmol/L (22-30); Chloride 104 mmol/L (98-107); Estimated CRCL calculation 45 ml/min; Estimated Glomerular Filt Rate 42; Glucose 183 mg/dL (65-110); Potassium 4.4 mmol/L (3.4-5.0); Sodium 139 mmol/L (137-145)
[2023-08-02 06:18] VITALS: BP 124/44; PULSE 63; RESP 18; TEMP 36.1; O2SAT 97
[2023-08-02] MEDS: ROSUVASTATIN 10 MG TABLET PO (08:26)
[2023-08-02] MEDS: polyethylene glycoL 3350 17 GM POWD.PACK PO (08:26)
[2023-08-02] MEDS: EMPAGLIFLOZIN 10 MG TABLET PO (08:26)
[2023-08-02] MEDS: FAMOTIDINE 20 MG TABLET PO (08:26)
[2023-08-02] MEDS: SPIRONOLACTONE 25 MG TABLET PO (08:26)
[2023-08-02] MEDS: SENNA/DOCUSATE SODIUM TABLET 2 TAB PO (08:26)
[2023-08-02] MEDS: ACETAMINOPHEN 500 MG TABLET PO (08:27)
[2023-08-02] MEDS: CELECOXIB 200 MG CAPSULE PO (08:29)
[2023-08-02] MEDS: oxyCODONE/ACETAMINOPHEN (*CRX) 5-325 MG TABLET 1 TABLET PO (09:39)
--- NOTE | 2023-08-02 10:31 | PM.PNORT ---
Progress Note: A&P Assessment and Plan (1) Left knee DJD: Qualifiers: Osteoarthritis type: primary Qualified Code(s): M17.12 - Unilateral primary osteoarthritis, left knee Code(s): M17.12 - Unilateral primary osteoarthritis, left knee Status: Acute Assessment and Plan: POD 1 DOING WELL. [place] DC HOME F/U IN 3 WEEKS. Subjective Subjective Date/Time Seen: 08/02/23 10:31 Interval history: POD 1 DOING WELL. GOOD PROGRESS WITH PT. NO CALF PAIN Exam Extrem: Other: VSS AFEBRILE DRESSING DRY NV INTACT NEG HOMANS SIGN CALF SOFT NON TENDER THIGH SOFT NON TENDER Objective Data Vital Signs Vital Signs: Vital Signs - 24 hr 08/01/23 12:25 08/01/23 15:00 08/01/23 15:15 Temperature 36.4 C L 36.5 C Pulse Rate 65 72 76 Respiratory Rate 16 16 14 Blood Pressure 138/72 162/68 H 169/77 H Pulse Oximetry 94 99 100 Oxygen Delivery Simple Face Mask Simple Face Mask Oxygen Flow Rate 8 8 08/01/23 15:30 08/01/23 15:45 08/01/23 16:00 Temperature Pulse Rate 73 78 86 Respiratory Rate 16 16 16 Blood Pressure 170/65 H 158/62 H 159/67 H Pulse Oximetry 95 94 97 Oxygen Delivery Room Air Nasal Cannula Nasal Cannula Oxygen Flow Rate 3 2 08/01/23 16:15 08/01/23 16:30 08/01/23 17:00 Temperature 36.2 C L Pulse Rate 83 78 76 Respiratory Rate 18 14 18 Blood Pressure 157/61 H 160/61 H 157/57 H Pulse Oximetry 98 98 99 Oxygen Delivery Nasal Cannula Nasal Cannula Oxygen Flow Rate 3 3 08/01/23 17:15 08/01/23 17:45 08/01/23 20:17 Temperature 36.2 C L 36.2 C L Pulse Rate 72 70 72 Respiratory Rate 18 18 Blood Pressure 162/59 H 172/70 H Pulse Oximetry 99 100 Oxygen Delivery Oxygen Flow Rate 08/01/23 20:00 08/01/23 22:18 08/02/23 02:18 Temperature 36.1 C L 36.1 C L Pulse Rate 72 59 L Respiratory Rate 20 20 Blood Pressure 138/72 153/50 H Pulse Oximetry 99 99 Oxygen Delivery Room Air Oxygen Flow Rate 08/02/23 06:18 08/02/23 08:38 Temperature 36.1 C L Pulse Rate 63 Respiratory Rate 18 Blood Pressure 124/44 L Pulse Oximetry 97 Oxygen Delivery Room Air Oxygen Flow Rate Intake/Output Intake/Output: Intake & Output 07/30/23 07/31/23 08/01/23 08/02/23 23:59 23:59 23:59 23:59 Intake Total 1155 1010 Balance 1155 1010 Meds/Results Medications: Active Medications Generic Name Dose Route Start Last Admin Trade Name Freq PRN Reason Stop Dose Admin Acetaminophen 1,000 mg 08/01/23 16:33 Acetaminophen 500 Mg Tablet PO Q6H PRN Pain Acetaminophen 500 mg 08/01/23 16:33 08/02/23 08:27 Acetaminophen 500 Mg Tablet PO 500 mg Q6H PRN Administration Pain Rated 1-3 Celecoxib 200 mg 08/01/23 17:00 08/02/23 08:29 Celecoxib 200 Mg Capsule PO 200 mg BIDWM JUAN R Administration Diazepam 5 mg 08/01/23 16:33 Diazepam (*Crx) 5 Mg Tablet PO Q8H PRN Spasms Diphenhydramine HCl 25 mg 08/01/23 16:33 Diphenhydramine Hcl Inj 50 Mg/Ml Vial IV PUSH Q6H PRN Itching Duloxetine HCl 60 mg 08/01/23 21:00 08/01/23 20:17 Duloxetine Hcl 60 Mg Capsule.Dr PO 60 mg HS JUAN R Administration Empagliflozin 10 mg 08/02/23 09:00 08/02/23 08:26 Empagliflozin 10 Mg Tablet PO 10 mg DAILY JUAN R Administration Famotidine 20 mg 08/01/23 21:00 08/02/23 08:26 Famotidine 20 Mg Tablet PO 20 mg Q12HR JUAN R Administration Hydromorphone HCl 1 mg 08/01/23 16:33 Hydromorphone Hcl Inj (*Crx) 1 Mg/Ml Syr IV PUSH Q2H PRN Breakthrough Pain Rated 7-10 or NPO Hydromorphone HCl 0.5 mg 08/01/23 16:33 Hydromorphone Hcl Inj (*Crx) 1 Mg/Ml Syr IV PUSH Q2H PRN Breakthrough Pain Rated 4-6 or NPO Cefazolin Sodium 2 gm in 50 mls @ 100 mls/hr 08/01/23 20:00 08/02/23 03:33 Ancef 2 Gm/D5w 50 Ml IVPB 08/02/23 12:29 Infused Q8H JUAN R Infusion Ibuprofen 800 mg in 200 mls @ 400 mls/hr 08/01/23 16:33 Caldolor 800 Mg/200 Ml IVPB Q6H PRN Breakt
--- NOTE | 2023-08-02 10:44 | WPDANESPN ---
Anes - Prog Note Post-Op Date/Time: 08/02/23 10:44 Cardiovascular status: normal Respiratory status: normal Airway patency: baseline Mental status: baseline Post-Op hydration status: normal Vital Signs: Last Vital Signs Temp 36.1 C L 08/02/23 06:18 Pulse 63 08/02/23 06:18 Resp 18 08/02/23 06:18 BP 124/44 L 08/02/23 06:18 Pulse Ox 97 08/02/23 06:18 O2 Del Method Room Air 08/02/23 08:38 O2 Flow Rate 3 08/01/23 16:30 Pain Score (VAS): 04/22 I/O: Intake & Output 08/01/23 08/02/23 08/02/23 23:59 07:59 15:59 Intake Total 955 650 360 Balance 955 650 360 Laboratory Tests 08/02/23 05:29 08/02/23 05:29 08/01/23 08/01/23 08/02/23 10:37 11:16 05:29 WBC 16.1 H RBC 4.40 L Hgb 13.7 L Hct 45.0 MCV 102.3 H MCH 31.1 MCHC 30.4 L RDW 12.5 Plt Count 198 MPV 10.2 Immature Gran % (Auto) 0.5 Neut % (Auto) 78.3 H Lymph % (Auto) 9.8 L [place] % (Auto) 8.7 H Eos % (Auto) 2.1 Baso % (Auto) 0.6 Lymph # (Auto) 1.57 [place] # (Auto) 1.4 H Eos # (Auto) 0.3 Baso # (Auto) 0.1 Abs Immat Gran (auto) 0.08 H Absolute Neuts (auto) 12.6 H Absolute Nucleated RBC 0.000 Nucleated RBC % 0.0 Sodium 139 Potassium 4.4 Chloride 104 Carbon Dioxide 24 Anion Gap 11 BUN 21 H Creatinine 1.60 H Estim Creat Clear Calc 45 Estimated GFR 42 L Glucose 183 H POC Capillary Glucose 147 H Calcium 8.9 Blood Type O Positive Antibody Screen Negative Post-procedural complaints: none Patient Feedback: Patient satisfied with anesthetic care.
[2023-08-02 14:00] VITALS: BP 140/52; PULSE 60; RESP 18; TEMP 37.1; O2SAT 98
--- NOTE | 2023-08-02 14:22 | PM.DS ---
DS: Admitting Diagnosis Discharge Date 08/02/23 Admitting Diagnosis LEFT KNEE DJD DS: Discharge Diagnosis Discharge Diagnosis (1) History of knee replacement procedure of left knee: Code(s): Z96.652 - Presence of left artificial knee joint Status: Acute DS: Summary Hospital Course Reason for hospitalization: LEFT TKA Hospital Course: PATIENT WAS ADMITTED S/P TOTAL KNEE ARTHROPLASTY FOR POSTOPERATIVE MEDICAL MANAGEMENT, PAIN CONTROL AND MOBILIZATION WITH PHYSICAL AND OCCUPATIONAL THERAPY. THE PATIENT PROGRESSED WELL WITH PT/OT. LABS AND VITALS REMAINED STABLE AND PAIN WELL CONTROLLED. THE PATIENT HAS BEEN CLEARED TO BE DISCHARGED HOME. FOLLOW UP APPOINTMENT SCHEDULED. DISCHARGE INSTRUCTIONS DISCUSSED AT LENGTH WITH THE PATIENT. MEDICATIONS REVIEWED. Status at Discharge Cognitive/behavioral status at discharge: STABLE Functional status at discharge: uses cane/walker Time Spent with Patient Time attestation: Total time spent providing and/or coordinating discharge services: DS: Data Data Completed and Pending Labs on day of discharge: Labs from last 24 hours 08/02/23 05:29 WBC 16.1 H RBC 4.40 L Hgb 13.7 L Hct 45.0 MCV 102.3 H MCH 31.1 MCHC 30.4 L RDW 12.5 Plt Count 198 MPV 10.2 Immature Gran % (Auto) 0.5 Neut % (Auto) 78.3 H Lymph % (Auto) 9.8 L [place] % (Auto) 8.7 H Eos % (Auto) 2.1 Baso % (Auto) 0.6 Lymph # (Auto) 1.57 [place] # (Auto) 1.4 H Eos # (Auto) 0.3 Baso # (Auto) 0.1 Abs Immat Gran (auto) 0.08 H Absolute Neuts (auto) 12.6 H Absolute Nucleated RBC 0.000 Nucleated RBC % 0.0 Sodium 139 Potassium 4.4 Chloride 104 Carbon Dioxide 24 Anion Gap 11 BUN 21 H Creatinine 1.60 H Estim Creat Clear Calc 45 Estimated GFR 42 L Glucose 183 H Calcium 8.9 Procedures/Treatments: LEFT TKA Discharge Plan Discharge Patient Disposition: Home Health Service Discharge Instructions: Per Care Coordination Patient has been accepted to have [facility] for RN, PT, OT [phone] RN please fax completed discharge instructions to [phone] Patient Instructions: Antibiotic Form, Rivaroxaban (By mouth) Stand Alone Forms: General Discharge Information Follow-up/Referrals: Gilberto Ford MD [Physician] - 3 Weeks Discharge Medications: New oxycodone-acetaminophen [Percocet] 7.5-325 mg tablet 1 tablet PO Q6H PRN (Reason: pain) Qty: 40 0RF Xarelto 10 mg tablet 10 mg PO DAILY Qty: 14 0RF Rx Instructions: for 35 days diazepam [Valium] 5 mg tablet 5 mg PO BID PRN (Reason: muscle spasm) Qty: 30 0RF Continued spironolactone 25 mg tablet 25 mg PO DAILY colchicine 0.6 mg capsule 0.6 mg PO .PRN Jardiance 10 mg tablet 10 mg PO DAILY rosuvastatin 10 mg tablet 10 mg PO DAILY nystatin-triamcinolone 100,000-0.1 unit/g-% cream 1 applic TOPICAL PRN PRN (Reason: YEAST INFECTIONS) acetaminophen 500 mg Capsule 1,000 mg PO Q6H PRN (Reason: Pain) OneTouch Ultra Test Strip See Rx Instructions .ROUTE .COMPLEX Qty: 100 2RF Dose Instruction: USE TO CHECK BLOOD SUGAR ONCE DAILY DIRECTED. Rx Instructions: USE TO CHECK BLOOD SUGAR ONCE DAILY DIRECTED. duloxetine 60 mg capsule,delayed release(DR/EC) See Rx Instructions .ROUTE .COMPLEX Qty: 90 2RF Dose Instruction: TAKE 1 CAPSULE BY MOUTH EVERY DAY Patient Comments: TAKES AT HS Rx Instructions: TAKE 1 CAPSULE BY MOUTH EVERY DAY metoprolol succinate 50 mg tablet extended release 24 hr 50 mg PO DAILY Qty: 90 1RF Patient Comments: TAKES AT HS Ozempic 2 mg/dose (8 mg/3 mL) pen injector 2 mg subcut WEEKLY Qty: 3 2RF Patient Comments: TAKES ON FRIDAYS chlorhexidine gluconate [Hibiclens] 4 % liquid 1 applic topical DAILY Qty: 237 0RF Rx Instructions: cleanse operative extremity every day for 7 days prior to procedure
== END 2023-08-02 15:06 | disposition home health service (06) ==
LOC: ANHSURGERY 09:57 → ANH3MED 16:38
PROVIDERS: PCP Family Medicine; Visit Provider Orthopaedic Surgery
PROC: (CPT 27447; principal; 2023-08-01 12:00)
DX: M17.12 Unilateral primary osteoarthritis, left knee (principal); G89.18 Other acute postprocedural pain; E78.2 Mixed hyperlipidemia; G47.33 Obstructive sleep apnea (adult) (pediatric); E11.9 Type 2 diabetes mellitus without complications; I10 Essential (primary) hypertension; Z79.85 Long-term (current) use of injectable non-insulin antidiabetic drugs; Z79.84 Long term (current) use of oral hypoglycemic drugs; Z95.5 Presence of coronary angioplasty implant and graft; E66.9 Obesity, unspecified; Z68.35 Body mass index [BMI] 35.0-35.9, adult
CPT/HCPCS: 27447; 64447; 36415; 51702; 73560; 80048; 80053; 81001; 82948; 85025; 86850; 86900; 86901; 97110; 97116; 97161; 97165; 97530; 97535; 99283; A9270; C1713; C1776; J0171; J0690; J1885; J2270; J2405; J2704; J2795; J3010; J3370; J7030; J7120

== ENCOUNTER 2023-08-02 22:48 | Emergency (ER) | payer MEDICARE, SELFPAY ==
[2023-08-02 22:56] VITALS: BP 124/75; PULSE 86; RESP 18; TEMP 36.7; O2SAT 96
[2023-08-02 23:56] LABS: Appearance Urine Clear (Clear); Bilirubin Urine Negative (Negative); Blood Urine Negative (Negative); Color Urine Yellow (Yellow); Glucose Urine UA 3+ mg/dL (Negative); Ketones Urine 1+ mg/dL (Negative); Leukocyte Esterase Ur Negative LEU/UL (Negative); Nitrate Urine Negative (Negative); Protein Urine Negative (Negative); Specific Grav Ur 1.015 (1.001-1.035); Urobilinogen Urine 0.2 mg/dL (<2.0)
[2023-08-02 23:59] LABS: Add Urine Microscopic? YES
--- NOTE | 2023-08-03 00:05 | ED.GENADULT ---
HPI - General Adult General Chief complaint: Urogenital-Male Stated complaint: frequent urination Time Seen by Provider: 08/02/23 22:58 History of Present Illness HPI narrative: patient is 82-year-old gentleman who presents emergency department with chief complaint of increased urinary frequency. The patient reports he had a knee replacement on the left knee yesterday at our facility the patient reports that he went home his nose he has been urinating frequently and feeling as though his urgency to go the patient reports no fever reports that his incision is not showing any signs of redness the patient reports that he has had no vomiting denies flank pain Related Data Home Medications Medication Instructions Recorded Confirmed spironolactone 25 mg tablet 25 mg PO DAILY 05/30/23 07/24/23 acetaminophen 500 mg capsule 1,000 mg PO Q6H PRN Pain 07/14/23 07/24/23 empagliflozin 10 mg tablet 10 mg PO DAILY 07/14/23 07/24/23 (Jardiance) nystatin-triamcinolone 100,000 1 applic topical PRN PRN YEAST 07/14/23 07/24/23 unit/g-0.1 % topical cream INFECTIONS rosuvastatin 10 mg tablet 10 mg PO DAILY 07/14/23 07/24/23 colchicine 0.6 mg capsule 0.6 mg PO .PRN 07/17/23 07/24/23 Allergies Allergy/AdvReac Type Severity Reaction Status Date / Time clindamycin Allergy Unknown Rash Verified 08/02/23 23:00 tetracycline Allergy Unknown Rash Verified 08/02/23 23:00 Review of Systems Review of Systems: A 10 system review of systems was completed on the patient and is negative except for what is stated in the HPI. Nursing and ancillary documentation was reviewed. [facility] Past Medical History Medical History Anemia, unspecified B12 deficiency anemia BMI 36.0-36.9,adult BMI 37.0-37.9, adult BMI 38.0-38.9,adult Candidiasis COVID-19 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, ankle, left Effusion, left knee Encounter for screening colonoscopy Essential (primary) hypertension Left ankle pain Left knee DJD Left knee pain Low kidney function Lumbar radicular pain Mixed hyperlipidemia RODY (obstructive sleep apnea) Persistent dry cough Piriformis syndrome of left side Polyuria Pre-op testing Preoperative clearance Right hip pain Screening for prostate cancer SI joint arthritis Sleep apnea in adult Type 2 diabetes mellitus without complications Weak urinary stream Surgical History Surgical History History of surgery on arm Hx of heart artery stent Family History Family History Father Family history of diabetes mellitus in first degree relative Tuberculosis Diabetes mellitus Mother Family history of diabetes mellitus in first degree relative Acute myocardial infarction COPD (chronic obstructive pulmonary disease) Tobacco abuse Sibling Pacemaker Hypertension Diabetes mellitus Other Family history of gout Social History Social History Smoking status: Never smoker Second hand tobacco smoke exposure: Yes Additional smoking assessment comments: DENIES ANY FORM OF TOBACCO USE Alcohol intake: never Substance use: never Substance use type: does not use Do You Feel Safe in your Home?: Yes Lack of Transportation: No Lack of Food: Never True Current Housing: I Have Housing Concerned About Future Housing: No Difficulty Paying Gas/Electric Bills: No Difficulty Paying for Meds: No Currently Unemployed: No Education: Associate Degree Difficulty w/ Childcare or Family Care: No Living arrangements: with family Occupation/Education: retired 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
[2023-08-03 00:06] VITALS: BP 152/62; PULSE 95; RESP 16; O2SAT 95
[2023-08-03 00:07] LABS: Alanine Aminotransferase 16 U/L (6-50); Albumin Level 3.8 g/dL (3.5-5.1); Alkaline Phosphatase 63 U/L (38-126); Anion Gap 12 mmol/L (4-12); Aspartate Amino Transferase 34 U/L (17-59); Basophils Absolute Auto 0.1 K/mm3 (0.0-0.1); Basophils Percent Auto 0.5 % (0.2-1.2); Bilirubin,Total 1.9 mg/dL (0.2-1.3); Blood Urea Nitrogen 24 mg/dL (9-20); Calcium 8.8 mg/dL (8.4-10.2); Carbon Dioxide 18 mmol/L (22-30); Chloride 105 mmol/L (98-107); Eosinophils Absolute Auto 0.1 K/mm3 (0-0.3); Eosinophils Percent Auto 0.6 % (0-4.4); Estimated CRCL calculation 44 ml/min; Estimated Glomerular Filt Rate 42; Glucose 192 mg/dL (65-110); Hematocrit 37.9 % (42.0-52.0); Hemoglobin 12.4 g/dL (14.0-18.0); Immature Granulocyte Absolute 0.06 K/mm3 (0.00-0.031); Immature Granulocyte Percent A 0.5 % (0-0.5); Lymphocytes Absolute Auto 0.91 K/mm3 (0.9-3.2); Mean Corpuscular HGB Conc 32.7 g/dl (32-36); Mean Corpuscular Volume 97.9 fl (80-100); Mean Platelet Volume 10.4 fl (7.4-10.4); Monocytes Absolute Auto 1.3 K/mm3 (0.1-0.6); Monocytes Percent Auto 10.1 % (2.6-8.5); Neutrophils Absolute Auto 10.6 K/mm3 (1.3-6.7); Neutrophils Percent Auto 81.3 % (45.5-73.1); Platelet Count Result 166 k/mm3 (150-375); Potassium 4.6 mmol/L (3.4-5.0); Red Blood Count 3.87 M/mm3 (4.6-6.20); Red Cell Distribution Width 12.7 % (11.5-14.5); Sodium 135 mmol/L (137-145)
--- NOTE | 2023-08-03 00:18 | PC.NURSE ---
Per EDP Dr. Lam antibiotic will be switched from Rocephin IM to Cephalex PO. Rocephin and lidocaine returned to Pyxis.
[2023-08-03] MEDS: CEPHALEXIN 500 MG CAPSULE PO (00:23)
[2023-08-03] MEDS: TAMSULOSIN HCL 0.4 MG CAPSULE PO (00:23)
[2023-08-03] MEDS: oxyCODONE/ACETAMINOPHEN (*CRX) 5-325 MG TABLET 1 TABLET PO (00:23)
== END 2023-08-03 00:42 | disposition home or self-care (01) ==
PROVIDERS: Emergency Provider Emergency Medicine; PCP Family Medicine
DX: N99.89 Other postprocedural complications and disorders of genitourinary system (principal); N39.0 Urinary tract infection, site not specified; D64.9 Anemia, unspecified; E78.2 Mixed hyperlipidemia; E11.9 Type 2 diabetes mellitus without complications; M17.12 Unilateral primary osteoarthritis, left knee; M19.072 Primary osteoarthritis, left ankle and foot; G47.33 Obstructive sleep apnea (adult) (pediatric); Z95.5 Presence of coronary angioplasty implant and graft; Z86.16 Personal history of COVID-19; Z77.22 Contact with and (suspected) exposure to environmental tobacco smoke (acute) (chronic); Z79.01 Long term (current) use of anticoagulants; Z79.84 Long term (current) use of oral hypoglycemic drugs; Z79.899 Other long term (current) drug therapy; Z79.85 Long-term (current) use of injectable non-insulin antidiabetic drugs
CPT/HCPCS: 36415; 51702; 80053; 81001; 85025; 99283; A9270

== ENCOUNTER 2023-08-16 11:35 | Outpatient (CLI) | payer MEDICARE, SELFPAY ==
[2023-08-16 12:15] LABS: Albumin Level 4.4 g/dL (3.5-5.1); Anion Gap 7 mmol/L (4-12); Blood Urea Nitrogen 23 mg/dL (9-20); Calcium 9.6 mg/dL (8.4-10.2); Carbon Dioxide 27 mmol/L (22-30); Chloride 104 mmol/L (98-107); Estimated Glomerular Filt Rate 42; Glucose 265 mg/dL (65-110); Phosphorus 3.7 mg/dL (2.5-4.5); Potassium 4.9 mmol/L (3.4-5.0); Sodium 138 mmol/L (137-145)
[2023-08-16 12:16] LABS: Creatinine Urine 66.8 mg/dL; Total Protein Urine Random 9 mg/dL; Ur Ttl Prot Creatinine Ratio 0.13 mg/mg (0-0.20)
== END 2023-08-16 11:36 | disposition home or self-care (01) ==
PROVIDERS: PCP Family Medicine; Visit Provider Internal Medicine Nephrology
DX: I12.9 Hypertensive chronic kidney disease with stage 1 through stage 4 chronic kidney disease, or unspecified chronic kidney disease (principal); N18.31 Chronic kidney disease, stage 3a; E11.22 Type 2 diabetes mellitus with diabetic chronic kidney disease
CPT/HCPCS: 36415; 80069; 82570; 84156

== ENCOUNTER 2023-10-07 12:29 | Emergency (ER) | payer MEDICARE, SELFPAY ==
[2023-10-07 12:41] VITALS: BP 142/52; PULSE 76; RESP 16; TEMP 36.8; O2SAT 98
--- NOTE | 2023-10-07 12:47 | ED.URI ---
HPI - URI/Sore Throat General Chief Complaint: Upper Respiratory Infection Stated Complaint: COVID+ Time Seen by Provider: 10/07/23 12:48 Source: patient, RN notes reviewed and old records reviewed Mode of arrival: ambulatory Limitations: no limitations History of Present Illness HPI Narrative: Patient reports 2 day history of runny nose, slight cough, headache, fatigue. His did a home COVID test on him today, this was positive. He reports that he is interested in receiving Paxlovid. Related Data Home Medications Medication Instructions Recorded Confirmed spironolactone 25 mg tablet 25 mg PO DAILY 05/30/23 08/28/23 acetaminophen 500 mg capsule 1,000 mg PO Q6H PRN Pain 07/14/23 08/28/23 nystatin-triamcinolone 100,000 1 applic topical PRN PRN YEAST 07/14/23 08/28/23 unit/g-0.1 % topical cream INFECTIONS rosuvastatin 10 mg tablet 10 mg PO DAILY 07/14/23 08/28/23 colchicine 0.6 mg capsule 0.6 mg PO .PRN 07/17/23 08/28/23 Allergies Allergy/AdvReac Type Severity Reaction Status Date / Time clindamycin Allergy Unknown Rash Verified 08/28/23 14:11 tetracycline Allergy Unknown Rash Verified 08/28/23 14:11 Review of Systems Review of Systems: All systems reviewed & are unremarkable except as noted in HPI and below Constitutional: Constitutional: Reports as per HPI, Reports no additional constitutional complaints and Reports fatigue ENT: Reports system reviewed and no additional complaints, except as documented, Reports as per HPI and Reports nasal congestion Cardiovascular: Cardiovascular: Reports no additional cardiovascular complaints Respiratory: Respiratory: Reports as per HPI, Reports no additional respiratory complaints and Reports cough Gastrointestinal: Gastrointestinal: Reports no additional gastrointestinal complaints Neurologic: Reports system reviewed and no additional complaints, except as documented, Reports as per HPI and Reports headache(s) PMFSH Past Medical History Medical History Anemia, unspecified B12 deficiency anemia BMI 36.0-36.9,adult BMI 37.0-37.9, adult BMI 38.0-38.9,adult Candidiasis COVID-19 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, ankle, left Effusion, left knee Encounter for screening colonoscopy Essential (primary) hypertension Left ankle pain Left knee DJD Left knee pain Low kidney function Lumbar radicular pain Mixed hyperlipidemia RODY (obstructive sleep apnea) Persistent dry cough Piriformis syndrome of left side Polyuria Pre-op testing Preoperative clearance Right hip pain Screening for prostate cancer SI joint arthritis Sleep apnea in adult Type 2 diabetes mellitus without complications Weak urinary stream Surgical History Surgical History History of surgery on arm Hx of heart artery stent S/P total knee arthroplasty LT TKA 08/01/23 Family History Family History Father Family history of diabetes mellitus in first degree relative Tuberculosis Diabetes mellitus Mother Family history of diabetes mellitus in first degree relative Acute myocardial infarction COPD (chronic obstructive pulmonary disease) Tobacco abuse Sibling Pacemaker Hypertension Diabetes mellitus Other Family history of gout Social History Social History Smoking status: Never smoker Second hand tobacco smoke exposure: Yes Additional smoking assessment comments: DENIES ANY FORM OF TOBACCO USE Alcohol intake: never Substance use: never Substance use type: does not use Do You Feel Safe in your Home?: Yes Lack of Transportation: No Lack of Food: Never True Current Housing: I Have Housing Concerned About Future Housing: No Difficulty Paying Gas/Electric Bills: No Difficulty Paying for Meds: No
== END 2023-10-07 13:08 | disposition home or self-care (01) ==
PROVIDERS: Emergency Provider Nurse Practitioner Family; PCP Family Medicine
DX: U07.1 COVID-19 (principal); E78.2 Mixed hyperlipidemia; E11.9 Type 2 diabetes mellitus without complications; I10 Essential (primary) hypertension; M17.12 Unilateral primary osteoarthritis, left knee; M19.072 Primary osteoarthritis, left ankle and foot
CPT/HCPCS: 99213; G0463

== ENCOUNTER 2024-01-01 14:58 | Outpatient (CLI) | payer MEDICARE, SELFPAY ==
[2024-01-01 16:21] LABS: Albumin Level 4.2 g/dL (3.5-5.1); Anion Gap 6 mmol/L (4-12); Blood Urea Nitrogen 23 mg/dL (9-20); Calcium 9.6 mg/dL (8.4-10.2); Carbon Dioxide 27 mmol/L (22-30); Chloride 105 mmol/L (98-107); Estimated Glomerular Filt Rate 45; Glucose 146 mg/dL (65-110); Phosphorus 3.8 mg/dL (2.5-4.5); Sodium 138 mmol/L (137-145)
[2024-01-01 16:30] LABS: Parathyroid Intact 60.7 pg/mL (14.5-75.2)
[2024-01-01 16:53] LABS: Creatinine Urine 72.6 mg/dL; Total Protein Urine Random 8 mg/dL; Ur Ttl Prot Creatinine Ratio 0.11 mg/mg (0-0.20)
[2024-01-01 17:04] LABS: Vitamin D 25 Hydroxy 35.7 ng/mL
== END 2024-01-01 14:59 | disposition home or self-care (01) ==
LOC: ANHLAB 15:00
PROVIDERS: PCP Family Medicine; Visit Provider Internal Medicine Nephrology
DX: E11.22 Type 2 diabetes mellitus with diabetic chronic kidney disease (principal); I12.9 Hypertensive chronic kidney disease with stage 1 through stage 4 chronic kidney disease, or unspecified chronic kidney disease; N18.31 Chronic kidney disease, stage 3a; E55.9 Vitamin D deficiency, unspecified; N25.81 Secondary hyperparathyroidism of renal origin
CPT/HCPCS: 36415; 80069; 82306; 82570; 83970; 84156

== ENCOUNTER 2024-05-31 14:39 | Outpatient (CLI) | payer MEDICARE, SELFPAY ==
--- NOTE | ~2024-05-31 | XR_ITS ---
3 VIEWS LUMBAR SPINE Ordering provider: Paulette Garvey, [facility] History: . M54.50 - Low back pain, unspecified . Comparison: July 08, 2009 FINDINGS: VERTEBRAL BODIES: No visible fracture or subluxation. Degenerative changes of the spine. DISK SPACES: Narrowing of the disc L3-L4. Facet joint disease at the level of L4-L5 and L5 is noted. Mild bilateral hip osteoarthritic changes. SOFT TISSUES: Normal. IMPRESSION: No acute osseous abnormality lumbar spine. Degenerative disc disease at the level of L3-L4. Reviewed, dictated and finalized at location A.
--- OUTSIDE RECORDS SUMMARY | 2024-05-31 14:43 | XMS_ITS | Continuity of Care Document ---
Author Organization Formerly [facility]. If a dditional information is needed, contact Health Information Management at [phone] Address [address] [place] [address] Phone Care Team Providers Care Roll Shop Supervisor Name Role Phone Unavailable Unavailable Unavailable Unavailable Unavailable Unavailable
--- OUTSIDE RECORDS SUMMARY | 2024-05-31 14:43 | XMS_ITS | Continuity of Care Document ---
Author Organization [facility] Address [address] [place] [address] [place] [address] Phone Care Team Providers Care Ferryboat Operator Name Role Phone Khoi Dubois Unavailable Unavailable Procedures Procedure Date Office/outpatient Visit, Est Corneal Pachymetry Visual Field Examination(s) Office/outpatient Visit, Est Refraction Advance Directives Directive Yes / No Effective Date File Name No Information Encounters Encounter Description Practice Location Reason(s) For Visit Diagnoses Date Provider Providers Copied on Encounter Office/outpat ient Visit, Est [facility], [address] [place] [address] [address], [place], [place], [id number], tel:[phone] [facility] No Information [address]. [address] [place] [address], [address], [place]. tel:[phone] Referring Provider: Khoi marquez, [address] [place] [address], [address]. tel:[phone] [facility], [address] [place] [address] [address], [place], [place], [id number], tel:[phone] [facility] No Information 200 [address]alyh[address]. [address] [place] [address], [address], [place]. tel:[phone] Referring Provider: Khoi marquez, [address] [facility] [address], [place], [address]. tel:[phone] Office/outpat ient Visit, [facility], [address] [address] [facility] [address], [place], [place], [address], [place] tel:[phone] [facility] No Information 8 Silvino Westfall. [address] [facility] [address], [place], [address], [place]. tel:[phone] Family History Family Member Type Diagnosis Age [...]
--- OUTSIDE RECORDS SUMMARY | 2024-05-31 14:43 | XMS_ITS ---
Author Organization [facility] Address [address] [facility] [address] [place], [place] [id number] Care Team Providers Care It Intern Name Role Phone POLI TANNER Unavailable [phone] Alen Juarez Unavailable Unavailable REASON FOR VISIT *General care Encounters Encounter Location Date Provider Diagnosis [facility] [address] [facility] [address] [place], [place] [id number] 08/16/2023 POLI TANNER Plan Of Treatment No Information Progress Notes * MEGAN CACERESOB:1940 ( 83 yo M)Acc No.[id number]:08/16/2023 Patient: TON COLEMAN Provider: Farooq Tanner DPM :1940 A ge:83 Y S ex:Male Date:08/16/2023 Address[address] [id number] Subjective: * Chief Complaints: * 1 . *General care. * Medical History: Objective: * Vitals: Assessment: Plan: * Treatment: * Billing Information: * Visit Code: * Procedure Codes: * Electronic signature of MIKKI VILLANUEVA DPM on 05/31/2024 at 02:43 PM CDT Sign off status: Pending * Provider: Farooq Tanner DPM Date: 08/16/2023 Generated for Printi ng/Faxing/eTransmitting on: 05/31/2024 02:43 PM CDT
--- OUTSIDE RECORDS SUMMARY | 2024-05-31 14:43 | XMS_ITS | Patient Health Record ---
Author Organization [facility] Address [address] [place], [place] [phone] Care Team Providers Care Android Ios Developer Name Role Phone POLI PEREZ Unavailable [phone] Alen Juarez Unavailable Unavailable Allergies No Known Allergies Reason For Referral No Information Social History Tobacco Use: Social History Observation Description Date Details (start date - stop date) Never Smoker NA - NA Tobacco Use/Smoking Question Answer Notes Tobacco use: nonsmoker Plan Of Treatment No Information Insurance Providers Payer Name Payer Address Payer Phone Subscriber Number Group Number Insured Name Patient Relationship to Insured Coverage Start Date Coverage End Date Medicare Soniya Abbott GBA [id number] [address] [address] [place], [place] [id number] TON CACERES Self - patient is the insured [facility]) ATTN CLAIMS [address] [place] [address] [id number] TON CACERES Self - patient is the insured Medical (General) History Medical History History ICD Code acid reflux neuropathy Leg/Feet cramps Steroid Treatment Arthritis Cancer Gout Sleep apnea Diabetic Blood clots Surgical History Surgery Date(Month/Year) Gall Bladder
--- OUTSIDE RECORDS SUMMARY | 2024-05-31 14:43 | XMS_ITS | Clinical Summary ---
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 [employer] Gender Identity Not on file Sexual Orientation Not on file Plan of Treatment Health Maintenance Due Date Last Done Comments Hepatitis C Virus (HCV) Screening 1940 TdaP Immunization 1940 Pneumococcal Immunization (5 0+ years) (1 of 1 - PCV) 08/07/1991 Zoster Immunization (1 of 2) 08/07/1991 Respiratory Syncytial Virus (RSV) Immunization (Adult) (1 - 1-dose 75+ series) 2016 Influenza Immunization (#1) 10/15/202310/15, 11/07/2018 SARS-COV-2 Immunization ( - 2023- season) 2023 Hepatitis B Immunization Aged Out No longer eligible based on patient's age to complete this topic Meningococcal Immunization (ACWY) Aged Out No longer eligible b ased on patient's age to complete this topic Rotavirus Immunization Aged Out No lo nger eligible based on patient's age to complete this topic
--- OUTSIDE RECORDS SUMMARY | 2024-05-31 14:43 | XMS_ITS ---
Author Organization [facility] Address [address] [place], [place] [id number] Care Team Providers Care Knobber Name Role Phone POLI TANNER Unavailable [phone] Alen Juarez Unavailable Unavailable Allergies No Known Allergies REASON FOR VISIT *General care, *General care, Patient presents to the office for at risk diabetic foot care Social History Tobacco Use: Social History Observation Description Date Details (start date - stop date) Never Smoker NA - NA Tobacco Use/Smoking Question Answer Notes Tobacco use: nonsmoker Vital Signs Weight 282 lbs 05/31/2023 Weight-kg 127.91 kg 05/31/2023 Height 74 in 05/31/2023 Height-cm 187.96 cm 05/31/2023 BMI 36.2 kg/m2 05/31/2023 Encounters Encounter Location Date Provider Diagnosis [facility] [address] [place], [place] [phone] 05/31/2023 POLI TANNER Onychomycosis B35.1 ; Pain in right toe(s) M79.674 ; Pain in left toe(s) M79.675 ; Intermittent claudication of both lower extremities due to atherosclerosis I70.213 ; Difficulty in walking involving ankle and foot joint R26.2 and Type 2 diabetes mellitus with other diabetic neurological complication E11.49 Assessments Encounter Date Diagnosis (ICD Code) Assessment Notes Treatment Notes Treatment Clinical Notes Section Notes 05/31/2023 Onychomycosis (ICD-10 - B35.1) 1. Nails 1-5 Bilateral were debrided extensively with nail nippers and emery board, reducing length and girth to pink healthy tissue with any subungual debris and necrotic tissue removed 2. Patient was instructed on the importance of daily visual inspection of both feet. Patient should report to the office if they see any unusual redness, swelling, open sores, ulcerations or signs of infection. Patient should wear protective shoes around the house 3. Advised patient on appropriate shoe gear for protection, healing and overall foot health 05/31/2023 Pain in right toe(s) (ICD-10 - M79.674) 05/31/2023 Pain in left toe(s) (ICD-10 - M79.675) 05/31/2023 Intermittent claudication of both lower extremities due to atherosclerosis (ICD-10 - I70.213) 05/31/2023 Difficulty in walking involving ankle and foot joint (ICD-10 - R26.2) 05/31/2023 Type 2 diabetes mellitus with other diabetic neurological complication (ICD-10 - E11.49) 05/31/2023 Other DIABETIC FOOT CARE: Both feet were examined today. Diabetic preventive care provided as documented. Diabetic foot care education discussed today to including: daily foot inspections, appropriate protective shoe gear, and strict glycemic control. Patient to return to the office routinely for preventive diabetic foot care or sooner if patient notices any acute changes. Emollient: Recommend that the patient use an emollient such as xvuo-bln-jakbzw r Eucerin cream, Vanicream, or other lotion to the affected area. Plan Of Treatment Treatment Notes Assessment Notes Onychomycosis 1. Nails 1-5 Bilateral were debrided extensively with nail nippers and emery board, reducing length and girth to pink healthy tissue with any subungual debris and necrotic tissue removed 2. Patient was instructed on the importance of daily visual inspection of both feet. Patient should report to the office if they see any unusual redness, swelling, open sores, ulcerations or signs of infection. Patient should wear protective shoes around the house 3. Advised patient on appropriate shoe gear for protection, healing and overall foot health Other DIABETIC FOOT CARE: Both feet were examined today. Diabetic preventive care provided as documented. Diabetic foot care education discussed today to including: daily foot inspections, appropriate protective shoe gear, and strict glycemic control. Patient to return to the office routinely for preventive diabetic foot care or sooner if patient notices any acute changes. Emollient: Recommend that the patient use an emollient such as ifxz-dhf-fvcmkzp Eucerin cream, Vanicream, or other lotion to the affected area. Next Appt Details Follow Up: 3 Months, Reason: at risk foot care Progress Notes * MEGAN CACERESOB:1940 ( 83 yo M)Acc No.[id number]:05/31/2023 Patient: TON COLEMAN Provider: Fraooq Tanner DPM :1940 A ge:82 Y S ex:Male Date:05/31/2023 [address] [facility] [facility] [facility] [id number] Subjective: * Chief Complaints: * 1 . *General care. 2. *General care. 3. Patient presents to the office for at risk diabetic foot care. * HPI: H PI: General care P atoriana presents to the office for diabetic foot care. Patient states that their nails are thickened, elongated and painful. Patient states that it is aggravated by shoe gear. Onset is gradual., Patient is taking prescription blood thinners and aspirin, Date last seen by Dr. Juarez was 05/2023., Initials MW. * ROS: G eneral / Constitutional: Patient denies f atigue, fever, pain, weight loss. ? C ardiovascular: Patient denies c hest pain, dizziness, palpitations. ? M usculoskeletal: Patient denies a rthritis, joint stiffness, painful joints, childhood foot problems. P atient complains of g ait (walking problems), muscle cramps.? P eripheral Vascular: Patient denies u lceration of feet, blood clots in legs.?Patient complains of d ecreased sensation in extremities, pain / cramping in legs after exertion, cold extremities. P odiatric: Patient denies b urning of the feet, difficulty walking, fever. S kin: Patient denies d ry skin, discoloration, rash on feet, ulcerations. P atient complains of n ail changes, dry skin. N eurologic: Patient denies d izziness, balance difficulty, seizures.?Patient complains of n umbness, burning/ tingling, gait abnormality. * Medical History: A valerie reflux, Neuropathy, Leg/Feet cramps, Steroid Treatment, Arthritis, Cancer, Gout, Sleep apnea, Diabetic, Blood clots. * Surgical History: G all Bladder . * Family History: F ather: unknown, tuberculosis. * Social History: T obacco Use: T obacco Use/Smoking T obacco use: n onsmoker. D rugs/Alcohol: D o you drink alcohol?: No. * Medications: N one * Allergies: N .K.D.A. Objective: * Vitals: S hoe Size: 14 DD, Wt: 282 lbs, Wt-k.91 kg, Ht: 74 in, Ht-cm: 187.96 cm, BMI: 36.2 Index, Body Surface Area: 2.58. * Examination: D ermatologic: Skin findings: S kin is thin, atrophic and lacking pedal hair.. Nail pathology: N ails 1-5 bilateral are elongated, thick, discolored, and dystrophic with subungual debris. They are painful to palpation. ? M usculoskeletal: Muscle Strength M uscle strength is 5/5 in regards to dorsiflexion, plantarflexion, inversion, and eversion in bilateral lower extremities.. ? V ascular: Dorsalis pedis pulse: 1 /4 , bilateral. Posterior tibial pulse: 1 /4 , bilaterally. Capillary refill: g reater than 3 seconds. Edema: m ild, non-pitting, bilateral. ? N eurologic: Tinel's sign: n egative. Vibratory: n ormal. Jackson-Weinstin 5.07 monofilament d iminished protective sensation to the level of the digits via 5.07 g swmf bilateral. C onstitutional: Constitutional T he patient is awake, alert, well developed, well groomed and well nourished.. Assessment: * Assessment: 1. O nychomycosis - B35.1 (Primary) 2 . P ain in right toe(s) - M79.674? 3. P ain in left toe(s) - M79.675 4 . I ntermittent claudication of both lower extremities due to atherosclerosis - I70.213 5 . D ifficulty in walking involving ankle and foot joint - R26.2 6 . 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 O thers Notes: DIABETIC FOOT CARE: Both feet were examined today. Diabetic preventive care provided as documented. Diabetic foot care education discussed today to including: daily foot inspections, appropriate protective shoe gear, and strict glycemic control. Patient to return to the office routinely for preventive diabetic foot care or sooner if patient notices any acute changes. Emollient: Recommend that the patient use an emollient such as lmxt-tyt-jwasrop Eucerin cream, Vanicream, or other lotion to the affected area. * Procedure Codes: 1 1721 DEBRIDE NAIL, 6 OR MORE, Modifiers: Q8 * Follow Up: 3 Months (Reason: at risk foot care) * Billing Information: * Visit Code: * Procedure Codes: 69962 DEBRIDE NAIL, 6 OR MORE. Modifiers: Q8 * Electronic signature of MIKKI VILLANUEVA DPM on 05/31/2024 at 02:43 PM CDT Sign off status: Pending * Provider: Farooq Tanner DPM Date: 0 05/31/2023 Generated for Mary sandoval/Kymberly/Timbo on: 0 05/31/2024 02:43 PM CDT History and Physical Notes * HPI (History of Present Illness) Category Sub-Category Detail Notes Category Not es HPI General care Patient presents to the office for diabetic foot care. Patient states that their nails are thickened, elongated and painful. Patient states that it is aggravated by shoe gear. Onset is gradual., Patient is taking prescription blood thinners and aspirin, Date last seen by Dr. Juarez was 05/2023., Initials MW Examination Category Sub-Category Detail Notes Category Not es Dermatologic Skin findings: Skin is thin, at rophic and lacking pedal hair. Nail pathology: Nails 1-5 bilateral are elongated, thick, discolored, and dystrophic with subungual debris. They are painful to palpation Neurologic Tinel's sign: negative Vibratory: normal Jackson-Weinstin 5.07 monofilament dimini shed protective sensation to the level of the digits via 5.07 g swmf bilateral Vascular Dorsalis pedis pulse: / , bilateral Edema: mild, non-pitting, b ilateral Capillary refill: greater than 3 secon ds Posterior tibial pulse: 1/4 , bilaterall y Musculoskeletal Muscle Strength Muscle strength is 5/5 in regards to dorsiflexion, plantarflexion, inversion, and eversion in bilateral lower extremities. Constitutional Constitutional The patient is a wake, alert, well developed, well groomed and well nourished.
--- OUTSIDE RECORDS SUMMARY | 2024-05-31 14:43 | XMS_ITS | Clinical Summary ---
Author Organization [facility] Address [facility] [place] [address] Care Team Providers Care Hop Farmer Name Role Phone Alen Juarez MD Primary Care Provider [phone] Allergies No known active allergies Medications metFORMIN 500 MG tablet Take 500 mg by mouth 2 (two) times daily with meals. Active metoprolol succinate ER 25 MG 24 hr tablet Take 25 mg by mouth daily. Active ticagrelor 60 MG tablet Take 60 mg by mouth 2 (two) times daily. Active rosuvastatin 20 MG tablet Take 20 mg by mouth nightly at bedtime. Active duloxetine 60 MG capsule Take 60 mg by mouth nightly. Active linagliptin (TRADJENTA) 5 MG tablet Take 5 mg by mouth daily. Active Immunizations Immunization Administration Dates Next Due PFIZER COVID-19 (ORIGINAL FO RMULATION, PURPLE CAP) mRNA, LNP-S, PF, 30 MCG/0.3 ML DOSE 04/25/2020,04/04/2020 Social History Tobacco Use Types Packs/Day Years Used Date Smoking Tobacco: Never Smokeless Tobacco: Never Sex and Gender Information Value Date Recorded Sex Assigned at Not on file Legal Sex Male 7:43 PM CDT Gender Identity Not on file Sexual Orientation Not on file Last Filed Vital Signs Vital Sign Reading Time Taken Comments Blood Pressure 136/52 04/08/2019 9:52 AM TIE MAN Pulse 52 04/08/2019 9:52 AM TIE MAN Temperature 36.6 C (97.9 F) 04/08/2019 8:23 AM TIE MAN Respiratory Rate 20 04/08/2019 8:23 AM TIE MAN Oxygen Saturation 96% 04/08/2019 9:52 AM TIE MAN Inhaled Oxygen Concentration - - Weight 127 kg (280 lb) 04/03/2019 2:28 PM TIE MAN Height 185.4 cm (6' 1 ) 04/03/2019 2:28 PM TIE MAN Body Mass Index 36.94 04/03/2019 2:28 PM TIE MAN Plan of Treatment Health Maintenance Due Date Last Done Comments DTaP, Tdap and Td Vaccines ( 1 - Tdap) 1960 Pneumococcal Vaccine: 50+ Years (1 of 1 - PCV) 08/07/1991 Zoster Vaccines (1 of 2) 08/07/1991 Annual Medicare Wellness Visit 2006 RSV Immunization or 60+ Years (1 - 1-dose 75+ series) 2016 COVID-19 Vaccine (3 - 2023-2 5 season) 2023 04/25/2020, 04/04/2020 Meningococcal B Vaccine Aged Out No l onger eligible based on patient's age to complete this topic Meningococcal Vaccine Aged Out No yari dandy eligible based on patient's age to complete this topic RSV Immunizations Under 20 Months Aged Out No longer eligible b ased on patient's age to complete this topic Medical Devices Implanted Type Area Marketing Services Vice President Device Identifier Shelf Expiration Date Model / Serial / Lot Iol [place] [employer] - [id number] Implanted:Qty: 1 on 04/08/2019 by Felipe Slater MD at [facility] Lens Left: Eye [employer] 10/04/2020 [id number] / [id number] / Insurance [place] [employer] Care Teams Hop Farmer Relationship Specialty Start Date End Date Alen Juarez MD [address] [address] PCP - General FAMILY PRACTICE 04/04/19
--- OUTSIDE RECORDS SUMMARY | 2024-05-31 14:43 | XMS_ITS ---
Author Organization [facility] Address [address] [facility] [address] [place], [place] [id number] Care Team Providers Care Print Line Feeder Name Role Phone POLI TANNER Unavailable [phone] Alen Juarez Unavailable Unavailable REASON FOR VISIT *General care Encounters Encounter Location Date Provider Diagnosis [facility] [address] [facility] [address] [place], [place] [id number] 05/01/2024 POLI TANNER Plan Of Treatment No Information Progress Notes * MEGAN CACERESOB:1940 ( 83 yo M)Acc No.[id number]:05/01/2024 Patient: TON COLEMAN Provider: Farooq Tanner DPM :1940 A ge:83 Y S ex:Male Date:05/01/2024 [address] [id number] Subjective: * Chief Complaints: * 1 . *General care. * Medical History: Objective: * Vitals: Assessment: Plan: * Treatment: * Billing Information: * Visit Code: * Procedure Codes: * Electronic signature of MIKKI VILLANUEVA DPM on 05/31/2024 at 02:43 PM CDT Sign off status: Pending * Provider: Farooq Tanner DPM Date: 05/01/2024 Generated for Printi ng/Faxing/eTransmitting on: 0 05/31/2024 02:43 PM CDT
== END 2024-05-31 14:40 | disposition home or self-care (01) ==
PROVIDERS: PCP Family Medicine; Visit Provider Physician Assistant Medical
DX: M51.369 Other intervertebral disc degeneration, lumbar region without mention of lumbar back pain or lower extremity pain (principal)
CPT/HCPCS: 72100

== ENCOUNTER 2024-06-12 12:55 | Outpatient (CLI) | payer MEDICARE, SELFPAY ==
--- NOTE | ~2024-06-12 | US_ITS ---
US soft tissue head and neck 06/12/2024 13:36 Indication: Localized enlarged lymph nodes Procedure: High-resolution ultrasound of the left neck in the area of palpable concern Comparison: No prior studies for comparison. Findings: In the area of palpable concern posterior to the left ear there is a superficial oval circu mscribed mass which is hypoechoic with posterior acoustic enhancement and no significant internal vas cularity. This mass measures 1.2 x 0.8 x 1.2 cm. No additional masses are seen. Impression: 1: Oval hypoechoic nonvascular mass in the left neck in the area of palpable concern measuring 1.2 cm . Findings are suspicious for pathologic lymph node. Recommend correlation with biopsy. Reviewed, dictated and finalized at location A. Impression: 1: Oval hypoechoic nonvascular mass in the left neck in the area of palpable co ncern measuring 1.2 cm. Findings are suspicious for pathologic lymph node. Matt mmend correlation with biopsy.
--- OUTSIDE RECORDS SUMMARY | 2024-06-12 13:55 | XMS_ITS | Clinical Summary ---
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
--- OUTSIDE RECORDS SUMMARY | 2024-06-12 13:55 | XMS_ITS | Continuity of Care Document ---
Author Organization [facility]. If a dditional information is needed, contact Health Information Management at [phone] Address [address] [place] [address] Phone Care Team Providers Care Cupola Charger Name Role Phone Unavailable Unavailable Unavailable Unavailable Unavailable Unavailable
--- OUTSIDE RECORDS SUMMARY | 2024-06-12 13:55 | XMS_ITS ---
Author Organization [facility] Address [address] [place], [place] [id number] Care Team Providers Care Food Assembler Kitchen Name Role Phone POLI TANNER Unavailable [phone] Alen Juarez Unavailable Unavailable Allergies No Known Allergies REASON FOR VISIT *General care, *General care, Patient presents to the office for at risk diabetic foot care Social History Tobacco Use: Social History Observation Description Date Details (start date - stop date) Never Smoker NA - NA Tobacco Use/Smoking Question Answer Notes Tobacco use: nonsmoker Vital Signs Height 74 in 05/31/2023 Weight 282 lbs 05/31/2023 BMI 36.2 kg/m2 05/31/2023 Height-cm 187.96 cm 05/31/2023 Weight-kg 127.91 kg 05/31/2023 Encounters Encounter Location Date Provider Diagnosis [facility] [address] [place], [place] [id number] 05/31/2023 POLI TANNER Onychomycosis B35.1 ; Pain [...] the patient use an emollient such as jyzw-ojb-ckwccs r Eucerin cream, Vanicream, or other lotion [...] the patient use an emollient such as wksa-vig-ickpokf Eucerin cream, Vanicream, or other lotion to the affected area. Next Appt Details Follow Up: 3 Months, Reason: at risk foot care Progress Notes * MEGAN CACERESOB:1940 ( 83 yo M)Acc No.[id number]:05/31/2023 Patient: TON COLEMAN Provider: Farooq Tanner DPM :1940 A ge:82 Y S ex:Male Date:05/31/2023 [address] [id number] Subjective: * Chief Complaints: * 1 . [...] Tinel's sign: n egative. Vibratory: n ormal. Aurora-Weinstin 5.07 monofilament d iminished protective sensation to [...] the patient use an emollient such as vyik-ita-zxaodxl Eucerin cream, Vanicream, or other lotion to the affected area. * Procedure Codes: 1 1721 DEBRIDE NAIL, 6 OR MORE, Modifiers: Q8 * Follow Up: 3 Months (Reason: at risk foot care) * Billing Information: * Visit Code: * Procedure Codes: 21150 DEBRIDE NAIL, 6 OR MORE. Modifiers: Q8 * Electronic signature of MIKKI VILLANUEVA DPM on 06/12/2024 at 01:55 PM CDT Sign off status: Pending * Provider: Farooq Tanner DPM Date: 0 05/31/2023 Generated for Mary sandoval/Kymberly/Timbo on: 0 06/12/2024 01:55 PM CDT History and Physical Notes * [...] palpation Neurologic Tinel's sign: negative Vibratory: normal Aurora-Weinstin 5.07 monofilament dimini shed protective sensation to [...]
--- OUTSIDE RECORDS SUMMARY | 2024-06-12 13:55 | XMS_ITS | Patient Health Record ---
Author Organization [facility] Address [address] [place], [place] [phone] Care Team Providers Care Enrollment Services Vice President Name Role Phone POLI PEREZ Unavailable [phone] Alen Juarez Unavailable Unavailable Allergies No Known [...] Coverage End Date Medicare Soniya Abbott GBA [id number] [address] [address] [place], [place] [id number] TON CACERES Self - patient is the insured [facility] ([facility]) ATTN CLAIMS [address] [place] [address] [id number] TON CACERES Self - patient is the insured Medical (General) History Medical History History ICD Code acid reflux neuropathy Leg/Feet cramps Steroid Treatment Arthritis Cancer Gout Sleep apnea Diabetic Blood clots Surgical History Surgery Date(Month/Year) Gall Bladder
--- OUTSIDE RECORDS SUMMARY | 2024-06-12 13:55 | XMS_ITS | Clinical Summary ---
Author Organization [facility] Address [facility] [place] [address] Care Team Providers Care Sales Development Specialist Name Role Phone Alen Juarez MD Primary Care Provider [phone] Allergies No known active allergies Medications metFORMIN [...] Comments Blood Pressure 136/52 04/08/2019 9:52 AM STALLION MANAGER Pulse 52 04/08/2019 9:52 AM STALLION MANAGER Temperature 36.6 C (97.9 F) 04/08/2019 8:23 AM STALLION MANAGER Respiratory Rate 20 04/08/2019 8:23 AM STALLION MANAGER Oxygen Saturation 96% 04/08/2019 9:52 AM STALLION MANAGER Inhaled Oxygen Concentration - - Weight 127 kg (280 lb) 04/03/2019 2:28 PM STALLION MANAGER Height 185.4 cm (6' 1 ) 04/03/2019 2:28 PM STALLION MANAGER Body Mass Index 36.94 04/03/2019 2:28 PM STALLION MANAGER Plan of Treatment Health Maintenance Due Date [...] this topic Medical Devices Implanted Type Area Designer/Writer Device Identifier Shelf Expiration Date Model / Serial / Lot Iol [employer] Zcboo - [id number] Implanted:Qty: 1 on 04/08/2019 by Felipe Slater MD at [facility] Lens Left: Eye [employer] 10/04/2020 [id number] / [id number] / Insurance [place] [employer] Care Teams Sales Development Specialist Relationship Specialty Start Date End Date Alen Juarez MD [address] [address] PCP - General FAMILY PRACTICE 04/04/19
--- OUTSIDE RECORDS SUMMARY | 2024-06-12 13:55 | XMS_ITS | Encounter Summary ---
Author Organization [facility] Care Team Providers Care On Site Coordinator Name Role Phone Alen Juarez MD Primary Care Provider [phone] Alen Juarez MD Unavailable [phone] Sam Morales MD Unavailable + [phone] Encounter Details Date Type Department Care Team (Latest Contact Info) Description 10/13/2017 Orders Only [facility] CLINCON[facility] ProviderEdenilson MD [address] [place] [address] Social History Tobacco Use Types Packs/Day Years Used Date Smoking Tobacco: Never Assessed Sex and Gender Information Value Date Recorded Sex Assigned at Not on file Legal Sex Male 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 Historical Provider Final Res ult * SCAN - LABS (10/13/2017 12:00 AM CDT) Narrative 10/13/2017 12:00 AM CDT Ordered by an unspecified provider. us Historical Provider Final Res ult documented in this encounter Visit Diagnoses Not on filedocumented in this encounter Care Teams On Site Coordinator Relationship Specialty Start Date End Date Alen Juarez MD PCP - General 11/10/16 Alen Juarez MD 11/09/16 Sam Morales MD Consulting Physician Cardiology 05/26/21 documented as of this encounter
--- OUTSIDE RECORDS SUMMARY | 2024-06-12 13:56 | XMS_ITS | Encounter Summary ---
Author Organization [facility] Facility Care Team Providers Care Merchandise Processor Name Role Phone Alen Juarez MD Primary Care Provider [phone] Unknown, Notinfile Primary Care Provider Unavail able Alen Juarez MD Primary Care Provider [phone] Alen Juarez MD Unavailable [phone] Sam Morales MD Unavailable + [phone] Encounter Details Date Type Department Care Team (Latest Contact Info) Description 11/30/2015 Orders Only [facility] CLINCONV Provider, MD Edenilson [address] [place] [address] Social History Tobacco Use Types Packs/Day Years Used Date Smoking Tobacco: Never Assessed Sex and Gender Information Value Date Recorded Sex Assigned at Not on file Legal Sex Male 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 Historical Provider NURSING COMMUNICATION Fin al Result documented in this encounter Visit Diagnoses Not on filedocumented in this encounter Care Teams Merchandise Processor Relationship Specialty Start Date End Date Alen Juarez MD PCP - General 11/13/13 11/08/16 Unknown, Notinfile PCP - General 11/09/16 11/09/16 Alen Juarez MD PCP - General 11/10/16 Alen Juarez MD 11/09/16 Sam Morales MD Consulting Physician Cardiology 05/26/21 documented as of this encounter
--- OUTSIDE RECORDS SUMMARY | 2024-06-12 13:56 | XMS_ITS | Continuity of Care Document ---
Author Organization [facility] Address [address] [place] [address] [place] [address] Phone Care Team Providers Care Electrical And Instrument Engineer Name Role Phone Khoi Dubois Unavailable Unavailable Procedures Procedure Date Office/outpatient Visit, Est Corneal Pachymetry Visual Field Examination(s) Office/outpatient Visit, Est Refraction Advance Directives Directive Yes / No Effective Date File Name No Information Encounters Encounter Description Practice Location Reason(s) For Visit Diagnoses Date Provider Providers Copied on Encounter Office/outpat ient Visit, Est [facility], [address] [place] [address] [address], [place], [place], [id number], tel:[phone] [facility] No Information [address] Daly[address] [place] [address], [address], [place]. tel:[phone] Referring Provider: Khoi marquez, [address] [place] [address], [address]. tel:[phone] [facility], [address] [place] [address] [address], [place], [place], [id number], tel:[phone] [facility] No Information 200 [address]alyh[address] [place] [address], [address], [place]. tel:[phone] Referring Provider: Khoi marquez, [address] [facility] [address], [address]. tel:[phone] Office/outpat ient Visit, [facility] Eye [facility], [address] [place] [address] [facility] [address], [place], [place], [id number], [place] tel:[phone] [facility] No Information 8 Silvino Westfall. [address] [facility] [address], [address], [place]. tel:[phone] Family History Family Member Type Diagnosis Age [...]
--- OUTSIDE RECORDS SUMMARY | 2024-06-12 13:56 | XMS_ITS | Referral Summary ---
Author Organization [facility] Address [address] [place] [address] Care Team Providers Care Theatre Instructor Name Role Phone Alen Juarez MD Primary Care Provider [phone] Alen Juarez MD Unavailable [phone] Sam Morales MD Unavailable Encounters Date Type Department Care Team Description 05/31/2024 Telephone [facility] Ophthalmology [address] [place] [address] Jimbo Correa MD from Last 3 Months Allergies No known active allergies Medications DULoxetine DR (CYMBALTA) 60 mg capsule Take 1 capsule (60 mg total) by mouth daily 3 11/01/19 18 Active metoprolol XL (TOPROL-XL) 50 mg 24 hr tablet Take 1 tablet (50 mg total) by mouth daily 5 09/13/19 18 Active aspirin 81 mg enteric coated tablet 1 tablet (81 mg total) daily Active blood glucose diagnostic strip USE TO CHECK BLOOD SUGAR ONCE DAILY DIRECTED. 07/15/19 21 Active Jardiance 10 mg tablet Take 1 tablet (10 mg total) by mouth daily 05/04/19 22 Active Ozempic 1 mg/dose (4 mg/3 mL) pen injector injection 1 MG (0.75 ML) SUBCUTANEOUSLY WEEKLY 01/10/20 23 Active spironolactone (ALDACTONE) 25 mg tabletIndicati ons:NSTEMI (non-ST elevated myocardial infarction) (HCC),Coronary artery disease of [place] artery of [place] heart with stable angina pectoris,RODY on CPAP,Preoperat eliezer clearance,Ankl e edema Take 1 tablet (25 mg total) by mouth daily 90 tablet 2 03/21/19 24 Active rosuvastatin (CRESTOR) 10 mg tabletIndicati ons:NSTEMI (non-ST elevated myocardial infarction) (HCC),Coronary artery disease of [place] artery of [place] heart with stable angina pectoris,RODY on CPAP,Preoperat eliezer clearance,Ankl e edema Take 1 tablet (10 mg total) by mouth daily 90 tablet 1 05/22/19 25 Active rosuvastatin (CRESTOR) 10 mg tabletIndicati ons:NSTEMI (non-ST elevated myocardial infarction) (HCC),Coronary artery disease of [place] artery of [place] heart with stable angina pectoris,RODY on CPAP,Preoperat eliezer clearance,Ankl e edema TAKE 1 TABLET BY MOUTH EVERY DAY 90 tablet 1 10/06/19 24 025 Discontin ued(Reord er) Active Problems Problem Noted Date Diagnosed Date Diabetes mellitus type II, non insulin dependent 07/21/2023 Hypertension 07/21/2023 History of percutaneous coronary intervention 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 11/16/2017 Obstructive sleep apnea (adult) (pediatric) 05/2017 Coronary artery disease invo lving [place] coronary artery of [place] heart without angina pectoris 10/02/2017 Dyslipidemia 10/02/2017 Closed fracture of proximal end of humerus 11/09 Pain in shoulder 11/07/2016 Sensorineural hearing loss of high frequency Tinnitus 11/30/2015 Resolved Problems Problem Noted Date Diagnosed Date Resolved Date NSTEMI (non-ST elevated myoc ardial infarction) 10/02/2017 01/13/2023 Social History Tobacco Use Types Packs/Day Years Used Date Smoking Tobacco: Never Smokeless Tobacco: Never Tobacco Cessation:Counseling Given: Not Answered Alcohol Use Standard Drinks/Week Comments Yes 1 (1 standard drink = 0.6 oz pur e alcohol) 1 or 2 drinks a week. Personal Safety Answer Date Recorded Have you ever been in or are you currently in a harmful physical or emotional relationship or is someone making you feel afraid or unsafe? Denies 04/07/2023 Sex and Gender Information Value Date Recorded Sex Assigned at Not on file Legal Sex Male 5:23 AM CURRICULUM DEVELOPER Gender Identity Not on file Sexual Orientation Not on file Last Filed Vital Signs Vital Sign Reading Time Taken Comments Blood Pressure 124/60 07/21/2023 12:51 PM CDT Pulse 65 07/21/2023 12:51 PM CDT Temperature 36.4 C (97.5 F) 04/07/2023 4:06 PM CURRICULUM DEVELOPER Respiratory Rate 20 04/07/2023 4:06 PM CURRICULUM DEVELOPER Oxygen Saturation 93% 07/21/2023 12:51 PM CDT Inhaled Oxygen Concentration - - Weight 122 kg (268 lb 14.4 oz) 07/21/2023 12:51 PM CDT Height 188 cm (6' 2 ) 07/21/2023 12:51 PM CDT Body Mass Index 34.52 07/21/2023 12:51 PM CDT Plan of Treatment Not on file Procedures Procedure Name Priority Date/Time Associated Diagnosis Comments EGFR STAT 05/11/2022 12:45 AM CDT LIPID PANEL Routine 09/04/2020 11:13 AM CDT Dyslipidemia HEMOGLOBIN A1C Routine 09/11/2017 11:58 AM CDT from Last 3 Months or Most Recently Relevant to Health Maintenance Results * eGFR (05/11/2022 12:45 AM CDT) eGFR 40 mL/min/1. 73 m2 [facility] Comment: Interpretive Data Reference Interval Normal >/= 90 mL/min/1.73m2 Mildly decreased* 60 - 89 mL/min/1.73m2 Mildly to moderately decreased 45 - 59 mL/min/1.73m2 Moderately to severely decreased 30 - 44 mL/min/1.73m2 Severely decreased 15 - 29 mL/min/1.73m2 Kidney Failure < 15 mL/min/1.73m2 *Relative to young adult level Estimated glomerular filtration rate is determined by the 2020 CKD-EPI equation recommended by the National Kidney Foundation (A Unifying Approach to GFR Estimation: Recommendations of the NKF-ASK Task Force on Reassessing the Inclusion of Race in Diagnosing Kidney Disease, JASN 2020). The CKD-EPI equation should not be used for patients with unstable renal function and has not been validated in children and those over 70. Current interpretive data was last reviewed 2020. Blood 05/11/2022 12:4 5 AM CDT 05/11/2022 12:48 AM CDT us Ilia Ayushsepideh DO LAB BLOOD ORDERABLES Final Res ult [facility] [address] [facility] Department [place] [address] * (ABNORMAL) Lipid panel (09/04/2020 11:13 AM CDT) Cholesterol 136 30 - 199 mg/dL [facility] Comment: Interpretive Data Ages < or = 19 years Acceptable: <170 mg/dL Borderline high: 170-199 mg/dL High: >or= 200 mg/dL Ages > or = 20 years Desirable: <200 mg/dL Borderline high: 200-239 mg/dL High: >or= 240 mg/dL Literature References: 1. Expert Panel on Integrated Guidelines for Cardiovascular Health and Risk Reduction in Children and Adolescents. Pediatrics 2011;128:S213 2. NCEP Expert Panel. Circulation 2004;110:227 Current Interpretive Data was last revised on 2017. Triglycerides 289(H) <=149 mg/dL [facility] Comment: Interpretive Data Ages < or = 9 years Acceptable: <75 mg/dL Borderline high: 75-99 mg/dL High: >or= 100 mg/dL Ages 10 to 20 years Acceptable: <90 mg/dL Borderline high: 90-129 mg/dL High: >or= 130 mg/dL Ages > or = 20 years Desirable: <150 mg/dL Borderline high: 150-199 mg/dL High: 200-499 mg/dL Very high: >or= 499 mg/dL Literature References: 1. Expert Panel on Integrated Guidelines for Cardiovascular Health and Risk Reduction in Children and Adolescents. Pediatrics 2011;128:S213 2. NCEP Expert Panel. Circulation 2004;110:227 Current Interpretive Data was last revised on 2017. HDL 31(L) >=40 mg/dL [facility] Comment: Interpretive Data Ages < or = 19 years Acceptable: >45 mg/dL Borderline low: 40-45 mg/dL Low: <40 mg/dL Ages > or = 20 years Desirable: >or= 60 mg/dL Low: <40 mg/dL Literature References: 1. Expert Panel on Integrated Guidelines for Cardiovascular Health and Risk Reduction in Children and Adolescents. Pediatrics 2011;128:S213 2. NCEP Expert Panel. Circulation 2004;110:227 Current Interpretive Data was last revised on 2017. LDL, calculated 47 <=129 mg/dL [facility] Comment: Interpretive Data Ages < or = 19 years Acceptable: <110 mg/dL Borderline high: 110-129 mg/dL High: >or= 130 mg/dL Ages > or = 20 years Optimal: <100 mg/dL Near optimal: 100-129 mg/dL Borderline high: 130-159 mg/dL High: >160 mg/dL Literature References: 1. Expert Panel on Integrated Guidelines for Cardiovascular Health and Risk Reduction in Children and Adolescents. Pediatrics 2011;128:S213 2. NCEP Expert Panel. Circulation 2004;110:227 Current Interpretive Data was last revised on 2017. Non-HDL Cholesterol 105 mg/dL [facility] Comment: Interpretive Data Ages < or = 19 years Acceptable: <120 mg/dL Borderline high: 120-144 mg/dL High: >145 mg/dL Ages > or = 20 years When triglycerides are >200 mg/dL, Non-HDL cholesterol is a secondary target of therapy with treatment goals that are 30 mg/dL greater than the LDL cholesterol target. Literature References: 1. Expert Panel on Integrated Guidelines for Cardiovascular Health and Risk Reduction in Children and Adolescents. Pediatrics 2011;128:S213 2. NCEP Expert Panel. Circulation 2004;110:227 Current Interpretive Data was last revised on 2017. Chol/HDL ratio 4 [facility] Blood specimen (specimen) 09/04/2020 11:13 AM CDT 09/04/2020 11:38 AM CDT us Sam Morales MD LAB BLOOD ORDERABLES F inal Result [facility] [address] [facility] Department [place] [address] * (ABNORMAL) Hemoglobin A1c (09/11/2017 11:58 AM CDT) Hemoglobin A1c % 6.7(H) 4.0 - 5.6 % Comment: ADA 2016 GUIDELINES: Initial Diagnostic Criteria HbA1c Result: Interpretation: <5.7% Normal 5.7-6.4% At risk for diabetes mellitus >=6.5% Consistent with diabetes mellitus Diabetes monitoring Target value (ADA Recommended) <7% 09/11/2017 11:5 8 AM CDT 09/11/2017 1:57 PM CDT Archie Parker MD LAB BLOOD ORDERABLES Final Result [facility] HISTORICAL RESULTS from Last 3 Months or Most Recently Relevant to Health Maintenance Insurance [facility]IC[facility] [address] [place] [id number] [facility] [address] [place] [place] [id number] [facility] Care Teams Theatre Instructor Relationship Specialty Start Date End Date Alen Juarez MD PCP - General 11/10/16 Alen Juarez MD 11/09/16 Sam Morales MD Consulting Physician Cardiology 05/26/21
--- OUTSIDE RECORDS SUMMARY | 2024-06-12 13:56 | XMS_ITS ---
Author Organization [facility] Address [address] [facility] [address] [place], [place] [id number] Care Team Providers Care Transcribing Machine Mechanic Name Role Phone POLI TANNER Unavailable [phone] Alen Juarez Unavailable Unavailable REASON FOR VISIT *General care Encounters Encounter Location Date Provider Diagnosis [facility] [address] [facility] [address] [place], [place] [id number] 05/01/2024 POLI TANNER Plan Of Treatment No Information Progress Notes * MEGAN CACERESOB:1940 ( 83 yo M)Acc No.[id number]:05/01/2024 Patient: TON COLEMAN Provider: Farooq Tanner DPM :1940 A ge:83 Y S ex:Male Date:05/01/2024 [address] [id number] Subjective: * Chief Complaints: * 1 . *General care. * Medical History: Objective: * Vitals: Assessment: Plan: * Treatment: * Billing Information: * Visit Code: * Procedure Codes: * Electronic signature of MIKKI VILLANUEVA DPM on 06/12/2024 at 01:55 PM CDT Sign off status: Pending * Provider: Farooq Tanner DPM Date: 05/01/2024 Generated for Printi ng/Faxing/eTransmitting on: 0 06/12/2024 01:55 PM CDT
--- OUTSIDE RECORDS SUMMARY | 2024-06-12 13:56 | XMS_ITS ---
Author Organization [facility] Address [address] [facility] [address] [place], [place] [id number] Care Team Providers Care Superintendent Pressure Name Role Phone POLI TANNER Unavailable [phone] Alen Juarez Unavailable Unavailable REASON FOR VISIT *General care Encounters Encounter Location Date Provider Diagnosis [facility] [address] [facility] [address] [place], [place] [id number] 08/16/2023 POLI TANNER Plan Of Treatment No Information Progress Notes * MEGAN CACERESOB:1940 ( 83 yo M)Acc No.[id number]:08/16/2023 Patient: TON COLEMAN Provider: Farooq Tanner DPM :1940 A ge:83 Y S ex:Male Date:08/16/2023 [facility] [id number] Subjective: * Chief Complaints: * 1 . *General care. * Medical History: Objective: * Vitals: Assessment: Plan: * Treatment: * Billing Information: * Visit Code: * Procedure Codes: * Electronic signature of MIKKI VILLANUEVA DPM on 06/12/2024 at 01:55 PM CDT Sign off status: Pending * Provider: Farooq Tanner DPM Date: 08/16/2023 Generated for Printi ng/Faxing/eTransmitting on: 06/12/2024 01:55 PM CDT
--- OUTSIDE RECORDS SUMMARY | 2024-06-12 13:56 | XMS_ITS | Clinical Summary ---
Author Organization [facility] Address [address] [place] [address] Care Team Providers Care Software Quality Test Engineer Name Role Phone Alen Juarez MD Primary Care Provider [phone] Alen Juarez MD Unavailable [phone] Sam Morales MD Unavailable [phone] Allergies No known active allergies Medications DULoxetine [...] elevated myocardial infarction) (HCC),Coronary artery disease of [place] artery of [place] heart with stable angina pectoris,RODY on CPAP,Preoperat eliezer clearance,Ankl e edema Take 1 tablet (25 mg total) by mouth daily 90 tablet 2 03/21/19 24 Active rosuvastatin (CRESTOR) 10 mg tabletIndicati ons:NSTEMI (non-ST elevated myocardial infarction) (HCC),Coronary artery disease of [place] artery of [place] heart with stable angina pectoris,RODY on CPAP,Preoperat eliezer clearance,Ankl e edema Take 1 tablet (10 mg total) by mouth daily 90 tablet 1 05/22/19 25 Active rosuvastatin (CRESTOR) 10 mg tabletIndicati ons:NSTEMI (non-ST elevated myocardial infarction) (HCC),Coronary artery disease of [place] artery of [place] heart with stable angina pectoris,RODY on CPAP,Preoperat [...] (pediatric) 05/2017 Coronary artery disease invo lving [place] coronary artery of [place] heart without angina pectoris 10/02/2017 Dyslipidemia 10/02/2017 Closed fracture of proximal end of humerus 11/09 Pain in shoulder 11/07/2016 Sensorineural hearing loss of high frequency Tinnitus 11/30/2015 Resolved Problems Problem Noted Date Diagnosed Date Resolved Date NSTEMI (non-ST elevated myoc ardial infarction) 10/02/2017 01/13/2023 Encounters Date Type Department Care Team Description 05/31/2024 Telephone [facility] Ophthalmology [address] [place] [address] Jimbo Correa MD from Last 3 Months Surgical History Surgery Date Site/Laterality Comments GALLBLADDER SURGERY CARDIAC STENT PLACEMENT CATARACT EXTRACTION Bilateral Medical History Medical History Date Comments Diabetes (HCC) Sleep apnea Heart attack (HCC) Ear problems HL (hearing loss) Family History Medical History Relation Name Comments Diabetes Father Family history of diabetes mellitus - (Added by TW Conv) Diabetes Mother Family history of diabetes mellitus - (Added by TW Conv) Lung disease Mother Family history of lung disease - (Added by TW Conv) Diabetes Other Family history of diabetes mellitus - (Added by TW Conv) Relation Name Status Comments Father Mother Other Social History Tobacco Use Types Packs/Day Years [...] on file 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 Gender Identity Not on file Sexual Orientation Not on file Obstetrics History Last Filed Vital Signs Vital Sign Reading Time Taken Comments Blood Pressure 124/60 07/21/2023 12:51 PM CDT Pulse 65 07/21/2023 12:51 PM CDT Temperature 36.4 C (97.5 F) 04/07/2023 4:06 PM WEB DESIGNER DEVELOPER Respiratory Rate 20 04/07/2023 4:06 PM WEB DESIGNER DEVELOPER Oxygen Saturation 93% 07/21/2023 12:51 PM CDT Inhaled Oxygen Concentration - - Weight 122 kg (268 lb 14.4 oz) 07/21/2023 12:51 PM CDT Height 188 cm (6' 2 ) 07/21/2023 12:51 PM CDT Body Mass Index 34.52 07/21/2023 12:51 PM CDT Plan of Treatment Health Maintenance Due Date Last Done Comments Albumin Creatinine Ratio, Urine 1940 Depression Screening 1940 Fall Risk Assessment 1940 Dilated Eye Exam 1940 Foot Exam 1940 DTaP/Tdap/Td Vaccine (1 - Tdap) 1952 Hepatitis B Screening 08/07/1959 Pneumococcal vaccine 65+ (1 of 2 - PCV) 1960 Zoster Vaccine (1 of 2) 08/07/1991 Well Visit 65+ 2006 Hemoglobin A1C 03/14/2018 09/11/2017, 09/2 10/2016, 02/03/2015 Lipid Panel 09/04/2021 09/04/2020, 08/0 08/2019, 12/07/2018, Additional history exists eGFR 05/12/2023 05/11/2022, 09/04/2020 Covid-19 Vaccine (2023-2 5 season) 2023 04/25/2020, 04/04/2020 Influenza Vaccine (Season Ended) 2024 11/07/2018, 11/07/2016, 10/14/2016 Procedures Procedure Name Priority Date/Time Associated Diagnosis [...] of Race in Diagnosing Kidney Disease, JASN 202). The CKD-EPI equation should not be used for patients with unstable renal function and has not been validated in children and those over 70. Current interpretive data was last reviewed 2020. Blood 05/11/2022 12:4 5 AM CDT 05/11/2022 12:48 AM CDT us Ilia Garzon DO LAB BLOOD ORDERABLES Final Res ult GEMA [facility]ON [address] [facility] Department [place] [address] * (ABNORMAL) Lipid panel (09/04/2020 11:13 AM CDT) Cholesterol 136 30 - 199 mg/dL GEMA Comment: Interpretive Data Ages < [...] on 2017. HDL 31(L) >=40 mg/dL GEMA Comment: Interpretive Data Ages < [...] 2017. LDL, calculated 47 <=129 mg/dL GEMA Comment: Interpretive Data Ages < [...] on 2017. Non-HDL Cholesterol 105 mg/dL GEMA Comment: Interpretive Data Ages < [...] revised on 2017. Chol/HDL ratio 4 GEMA Blood specimen (specimen) 09/04/2020 11:13 AM CDT 09/04/2020 11:38 AM CDT us Sam Morales MD LAB BLOOD ORDERABLES F inal Result GEMA [address] [facility] [place] [address] * (ABNORMAL) Hemoglobin A1c (09/11/2017 11:58 AM CDT) Hemoglobin A1c % 6.7(H) 4.0 - 5.6 % 09/11/2017 2:30 PM CDT [facility] HISTORICAL RESULTS Comment: ADA 2016 GUIDELINES: Initial Diagnostic Criteria HbA1c Result: Interpretation: <5.7% Normal 5.7-6.4% At risk for diabetes mellitus >=6.5% Consistent with diabetes mellitus Diabetes monitoring Target value (ADA Recommended) <7% 09/11/2017 11:5 8 AM CDT 09/11/2017 1:57 PM CDT Archie Parker MD LAB BLOOD ORDERABLES Final Result [facility] [place] HISTORICAL RESULTS from Last 3 Months or Most Recently Relevant to Health Maintenance Insurance MEDICARE RAILROAD [facility] MEDICARE RAILROAD MEDICARE RAILROAD [address] Care Teams Software Quality Test Engineer Relationship Specialty Start Date End Date Alen Juarez MD PCP - General 11/10/16 Alen Juarez MD 11/09/16 Sam Morales MD Consulting Physician Cardiology 05/26/21
== END 2024-06-12 12:56 | disposition home or self-care (01) ==
PROVIDERS: PCP Family Medicine; Visit Provider Physician Assistant Medical
DX: R59.0 Localized enlarged lymph nodes (principal)
CPT/HCPCS: 76536

== ENCOUNTER 2024-06-26 08:17 | Outpatient (CLI) | payer MEDICARE, SELFPAY ==
--- NOTE | ~2024-06-26 | US_ITS ---
EXAMINATION: US biopsy lymph node DATE: 06/26/2024 09:44 INDICATION: Localized enlarged lymph nodes with enlarged left retroauricular lymph nodes TECHNIQUE: The procedure including the risks and benefits was discussed with the patient. Risks discu ssed included bleeding and infection. The patient understood the risks and agreed to proceed. The sk in overlying the left retroauricular nodule of concern was prepped and draped in usual sterile fashio n. Anesthetic was administered with 1% lidocaine subcutaneously. An 18 gauge core biopsy needle was advanced under continuous ultrasound observation to the lesion of interest. 7 core biopsy specimens were obtained, 4 placed in RPMI media and 3 in formalin. The lesion appeared to have decreased in si ze during the course of the biopsy suggesting possible cystic lesion and a pass was made with an 18-g auge needle with aspiration of 1 mL of maroon-colored fluid which was also sent to the lab. The need le was removed and the entry site was cleaned and dressed. Post procedure ultrasound demonstrated no hemorrhage. FINDINGS: Ultrasound images demonstrate a 1.4 x 0.7 x 1.2 cm very hypoechoic lesion at the region of concern. Subsequent images demonstrate biopsy needles advanced to the lesion. Following aspiration th e lesion appears decompressed measuring 10 x 2 mm. IMPRESSION: 1. Successful Ultrasound-guided biopsy and aspiration of a 1.4 x 0.7 x 1.2 cm complex cystic lesion a t the region of concern. Reviewed, dictated and finalized at location A. IMPRESSION: 1. Successful Ultrasound-guided biopsy and aspiration of a 1.4 x 0.7 x 1.2 cm c omplex cystic lesion at the region of concern.
--- OUTSIDE RECORDS SUMMARY | 2024-06-26 08:28 | XMS_ITS ---
Author Organization [facility] Address [address] [place], [place] [id number] Care Team Providers Care Supervisor Real Estate Office Name Role Phone POLI TANNER Unavailable [phone] Alen Juarez Unavailable Unavailable Allergies No Known [...] [facility] [address] [place], [place] [id number] 05/31/2023 POLI TANNER Onychomycosis B35.1 ; Pain [...] the patient use an emollient such as [id number] r Eucerin cream, Vanicream, or other lotion [...] the patient use an emollient such as [id number]-vob-sqoykub Eucerin cream, Vanicream, or other lotion to the affected area. Next Appt Details Follow Up: 3 Months, Reason: at risk foot care Progress Notes * MEGAN CACERESOB:1940 ( 83 yo M)Acc No.[id number]:05/31/2023 Patient: TON COLEMAN Provider: Farooq Tanner DPM :1940 A ge:82 Y S ex:Male Date:05/31/2023 [address] [facility] [facility] [id number] Subjective: * Chief Complaints: * 1 . *General care. 2. *General care. 3. Patient presents to the office for at risk diabetic foot care. * HPI: H PI: General care P sandy presents to the office for diabetic foot care. Patient states that their nails are thickened, elongated and painful. Patient states that it is aggravated by shoe gear. Onset is gradual., Patient is taking prescription blood thinners and aspirin, Date last seen by Dr. Juarez was 05/2023., Initials MW. * ROS: G eneral / Constitutional: Patient denies f atigue, fever, pain, weight loss. C ardiovascular: Patient denies c hest pain, dizziness, palpitations. M usculoskeletal: Patient denies a rthritis, joint stiffness, painful joints, childhood foot problems. P atient complains of g ait (walking problems), muscle cramps. P eripheral Vascular: Patient denies u lceration of feet, blood clots in legs. Patient complains of d ecreased sensation in extremities, pain / cramping in legs after exertion, cold extremities. P odiatric: Patient denies b urning of the feet, difficulty walking, fever. S kin: Patient denies d ry skin, discoloration, rash on feet, ulcerations. P atient complains of n ail changes, dry skin. N eurologic: Patient denies d izziness, balance difficulty, seizures. Patient complains of n umbness, burning/ tingling, gait [...] subungual debris. They are painful to palpation. M usculoskeletal: Muscle Strength M uscle strength is 5/5 in regards to dorsiflexion, plantarflexion, inversion, and eversion in bilateral lower extremities.. V ascular: Dorsalis pedis pulse: 1 /4 , bilateral. Posterior tibial pulse: 1 /4 , bilaterally. Capillary refill: g reater than 3 seconds. Edema: m ild, non-pitting, bilateral. N eurologic: Tinel's sign: n egative. Vibratory: n ormal. [place] 5.07 monofilament d iminished protective sensation to the level of the digits via 5.07 g swmf bilateral. C onstitutional: Constitutional T he patient is awake, alert, well developed, well groomed and well nourished.. Assessment: * Assessment: 1. O nychomycosis - B35.1 (Primary) 2 . P ain in right toe(s) - M79.674 3. P ain in left toe(s) - [...] the patient use an emollient such as [id number]-ppryjvi Eucerin cream, Vanicream, or other lotion to the affected area. * Procedure Codes: 1 1721 DEBRIDE NAIL, 6 OR MORE, Modifiers: Q8 * Follow Up: 3 Months (Reason: at risk foot care) * Billing Information: * Visit Code: * Procedure Codes: 05121 DEBRIDE NAIL, 6 OR MORE. Modifiers: Q8 * Electronic signature of MIKKI VILLANUEVA DPM on 06/26/2024 at 08:28 AM CDT Sign off status: Pending * Provider: Farooq Tanner DPM Date: 0 05/31/2023 Generated for Mary sandoval/Kymberly/Timbo on: 0 06/26/2024 08:28 AM CDT History and Physical Notes * HPI [...] palpation Neurologic Tinel's sign: negative Vibratory: normal [place] 5.07 monofilament dimini shed protective sensation to the level of the digits via 5.07 g swmf bilateral Vascular Dorsalis pedis pulse: 1/4 , bilateral Edema: mild, non-pitting, b ilateral Capillary refill: greater than 3 secon ds Posterior tibial pulse: 1/4 , bilaterall y Musculoskeletal Muscle Strength Muscle strength is 5/5 in regards to dorsiflexion, plantarflexion, inversion, and eversion in bilateral lower extremities. Constitutional Constitutional The patient is a wake, alert, well developed, well groomed and well nourished.
--- OUTSIDE RECORDS SUMMARY | 2024-06-26 08:28 | XMS_ITS | Patient Health Record ---
Author Organization [facility] Address [address] [place], [place] [phone] Care Team Providers Care Numerical Control Drill Press Operator Name Role Phone POLI PEREZ Unavailable [phone] Alen Juarez Unavailable Unavailable Allergies No Known [...] Coverage End Date Medicare Soniya Abbott GBA [id number] [address] [address] [place], [place] [id number] TON CACERES Self - patient is the insured [facility] ([facility] ATTN CLAIMS [address] [place] [address] [id number] TON CACERES Self - patient is the insured Medical (General) History Medical History History ICD Code acid reflux neuropathy Leg/Feet cramps Steroid Treatment Arthritis Cancer Gout Sleep apnea Diabetic Blood clots Surgical History Surgery Date(Month/Year) Gall Bladder
--- OUTSIDE RECORDS SUMMARY | 2024-06-26 08:28 | XMS_ITS | Clinical Summary ---
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
--- OUTSIDE RECORDS SUMMARY | 2024-06-26 08:28 | XMS_ITS | Clinical Summary ---
Author Organization [facility] Address [facility] [place] [address] Care Team Providers Care Social Media Director Name Role Phone Alen Juarez MD Primary Care Provider [phone] Allergies No known active allergies Medications metFORMIN [...] Comments Blood Pressure 136/52 04/08/2019 9:52 AM MUNICIPAL ENGINEER Pulse 52 04/08/2019 9:52 AM MUNICIPAL ENGINEER Temperature 36.6 C (97.9 F) 04/08/2019 8:23 AM MUNICIPAL ENGINEER Respiratory Rate 20 04/08/2019 8:23 AM MUNICIPAL ENGINEER Oxygen Saturation 96% 04/08/2019 9:52 AM MUNICIPAL ENGINEER Inhaled Oxygen Concentration - - Weight 127 kg (280 lb) 04/03/2019 2:28 PM MUNICIPAL ENGINEER Height 185.4 cm (6' 1 ) 04/03/2019 2:28 PM MUNICIPAL ENGINEER Body Mass Index 36.94 04/03/2019 2:28 PM MUNICIPAL ENGINEER Plan of Treatment Health Maintenance Due Date [...] this topic Medical Devices Implanted Type Area Director Of Strategic Sales Device Identifier Shelf Expiration Date Model / Serial / Lot Iol [employer] Zcboo - [id number] Implanted:Qty: 1 on 04/08/2019 by Felipe Slater MD at [facility] Lens Left: Eye [employer] 10/04/2020 [id number] / [id number] / Insurance [place] [employer] Care Teams Social Media Director Relationship Specialty Start Date End Date Alen Juarez MD [address] [place] [address] PCP - General FAMILY PRACTICE 04/04/19
--- OUTSIDE RECORDS SUMMARY | 2024-06-26 08:28 | XMS_ITS ---
Author Organization [facility] Address [address] [facility] [address] [place], [place] [phone] Care Team Providers Care Post Office Clerk Name Role Phone POLI TANNER Unavailable [phone] Alen Juarez Unavailable Unavailable REASON FOR VISIT *General care Encounters Encounter Location Date Provider Diagnosis [facility] [address] [facility] [address] [place], [place] [phone] 08/16/2023 POLI TANNER Plan Of Treatment No Information Progress Notes * MEGAN CACERESOB:1940 ( 83 yo M)Acc No.[id number]:08/16/2023 Patient: TON COLEMAN Provider: Farooq Tanner DPM :1940 A ge:83 Y S ex:Male Date:08/16/2023 [address] [id number] Subjective: * Chief Complaints: * 1 . *General care. * Medical History: Objective: * Vitals: Assessment: Plan: * Treatment: * Billing Information: * Visit Code: * Procedure Codes: * Electronic signature of MIKKI VILLANUEVA DPM on 06/26/2024 at 08:28 AM CDT Sign off status: Pending * Provider: Farooq Tanner DPM Date: 08/16/2023 Generated for Printi ng/Faxing/eTransmitting on: 06/26/2024 08:28 AM CDT
--- OUTSIDE RECORDS SUMMARY | 2024-06-26 08:28 | XMS_ITS | Continuity of Care Document ---
Author Organization [facility]. If a dditional information is needed, contact Health Information Management at [phone] Address [address] [place] [address] Phone Care Team Providers Care Code Enforcement Officer Name Role Phone Unavailable Unavailable Unavailable Unavailable Unavailable Unavailable
--- OUTSIDE RECORDS SUMMARY | 2024-06-26 08:28 | XMS_ITS | Encounter Summary ---
Author Organization [facility] Care Team Providers Care Import/Export Analyst Name Role Phone Alen Juarez MD Primary Care Provider [phone] Alen Juarez MD Unavailable [phone] Sam Morales MD Unavailable [phone] Encounter Details Date Type Department Care Team (Latest Contact Info) Description 10/13/2017 Orders Only [facility]INCONV Provider, MD Edenilson [address] [place] [address] Social History Tobacco Use Types Packs/Day Years Used Date Smoking Tobacco: Never Assessed Sex and Gender Information Value Date Recorded Sex Assigned at Not on file 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
--- OUTSIDE RECORDS SUMMARY | 2024-06-26 08:28 | XMS_ITS | Referral Summary ---
Author Organization [facility] Address [address] [place] [address] Care Team Providers Care English Drawer Name Role Phone Alen Juarez MD Primary Care Provider Alen Juarez MD Unavailable [phone] Sam Morales MD Unavailable Encounters Date Type Department Care Team Description 05/31/2024 Telephone [facility] Ophthalmology [address] [place] [address] Jimbo Correa MD from Last 3 Months Allergies No known active allergies Medications DULoxetine DR (CYMBALTA) 60 mg capsule Take 1 capsule (60 mg total) by mouth daily 3 8 Active metoprolol XL (TOPROL-XL) 50 mg 24 hr tablet Take 1 tablet (50 mg total) by mouth daily 5 8 Active aspirin 81 mg enteric coated tablet 1 tablet (81 mg total) daily Active blood glucose diagnostic strip USE TO CHECK BLOOD SUGAR ONCE DAILY DIRECTED. 1 Active Jardiance 10 mg tablet Take 1 tablet (10 mg total) by mouth daily 2 Active Ozempic 1 mg/dose (4 mg/3 mL) pen injector injection 1 MG (0.75 ML) SUBCUTANEOUSLY WEEKLY 3 Active spironolactone (ALDACTONE) 25 mg tabletIndicati ons:NSTEMI (non-ST elevated myocardial infarction) (HCC),Coronary artery disease of [place] artery of [place] heart with stable angina pectoris,RODY on CPAP,Preoperat eliezer clearance,Ankl e edema Take 1 tablet (25 mg total) by mouth daily 90 tablet 2 4 Active rosuvastatin (CRESTOR) 10 mg tabletIndicati ons:NSTEMI (non-ST elevated myocardial infarction) (HCC),Coronary artery disease of [place] artery of [place] heart with stable angina pectoris,RODY on CPAP,Preoperat eliezer clearance,Ankl e edema Take 1 tablet (10 mg total) by mouth daily 90 tablet 1 5 Active Active Problems Problem Noted Date Diagnosed Date Diabetes mellitus type II, non insulin dependent 07/21/2023 Hypertension 07/21/2023 History of percutaneous coronary intervention 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 11/16/2017 Obstructive sleep apnea (adult) (pediatric) 05/2017 Coronary artery disease invo lving [place] coronary artery of [place] heart without angina pectoris 10/02/2017 Dyslipidemia 10/02/2017 [...] on file 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 73 m2 GEMA Comment: Interpretive Data Reference Interval Normal >/= [...] LAB BLOOD ORDERABLES Final Res ult [facility]EMA [address] [facility] [place] [address] * (ABNORMAL) Lipid panel (09/04/2020 11:13 AM [...] 11:13 AM CDT 09/04/2020 11:38 AM CDT Sam Morales MD LAB BLOOD ORDERABLES F inal Result GEMA [address] [facility] [place] [address] * (ABNORMAL) Hemoglobin A1c (09/11/2017 11:58 AM CDT) Hemoglobin A1c % 6.7(H) 4.0 - 5.6 % Comment: ADA 2016 GUIDELINES: Initial Diagnostic Criteria HbA1c Result: Interpretation: <5.7% Normal 5.7-6.4% At risk for diabetes mellitus >=6.5% Consistent with diabetes mellitus Diabetes monitoring Target value (ADA Recommended) <7% 09/11/2017 11:5 8 AM CDT 09/11/2017 1:57 PM CDT Archie Parker MD LAB BLOOD ORDERABLES Final Result [facility] HISTORICAL RESULTS from Last 3 Months or Most Recently Relevant to Health Maintenance Insurance [address] [place] [id number] MEDICARE RARadiation Watch [facility] [address] [id number] [facility] [employer] [facility] Member Subscriber Plan / Payer ( fective 2014-Present) Name:DeniseeyalAngelobryson Beal Relation to Subscriber:Self Name:Ruiz Morse Payer ID:[id number] (NAIC) Type:[facility] Address: [address] [place] [phone] MEDICARE RAILROAD [facility] [place] [address] Care Teams English Drawer Relationship Specialty Start Date End Date Alen Juarez MD PCP - General 11/10/16 Alen Juarez MD 11/09/16 Sam Morales MD Consulting Physician Cardiology 05/26/21
--- OUTSIDE RECORDS SUMMARY | 2024-06-26 08:29 | XMS_ITS | Clinical Summary ---
Author Organization [facility] Address [address] [place] [address] Care Team Providers Care Acetylene Plant Operator Name Role Phone Alen Juarez MD Primary Care Provider [phone] Alen Juarez MD Unavailable [phone] Sam Morales MD Unavailable [phone] Allergies No known active allergies Medications DULoxetine [...] elevated myocardial infarction) (HCC),Coronary artery disease of [place] artery of [place] heart with stable angina pectoris,RODY on CPAP,Preoperat eliezer clearance,Ankl e edema Take 1 tablet (25 mg total) by mouth daily 90 tablet 2 4 Active rosuvastatin (CRESTOR) 10 mg tabletIndicati ons:NSTEMI (non-ST elevated myocardial infarction) (HCC),Coronary artery disease of [place] artery of [place] heart with stable angina pectoris,RODY on CPAP,Preoperat [...] (pediatric) 05/2017 Coronary artery disease invo lving [place] coronary artery of [place] heart without angina pectoris 10/02/2017 Dyslipidemia 10/02/2017 Closed fracture of proximal end of humerus 11/09 Pain in shoulder 11/07/2016 Sensorineural hearing loss of high frequency Tinnitus 11/30/2015 Resolved Problems Problem Noted Date Diagnosed Date Resolved Date NSTEMI (non-ST elevated myoc ardial infarction) 10/02/2017 01/13/2023 Encounters Date Type Department Care Team Description 05/31/2024 Telephone [facility] Ophthalmology [address] [place] [address] Jimbo Correa MD from Last 3 Months [...] on file 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 Gender Identity Not on file Sexual Orientation Not on file Obstetrics History Last Filed Vital Signs Vital Sign Reading Time Taken Comments Blood Pressure 124/60 07/21/2023 12:51 PM CDT Pulse 65 07/21/2023 12:51 PM CDT Temperature 36.4 C (97.5 F) 04/07/2023 4:06 PM EVENT PRODUCER Respiratory Rate 20 04/07/2023 4:06 PM EVENT PRODUCER Oxygen Saturation 93% 07/21/2023 12:51 PM CDT [...] Visit 65+ 2006 Hemoglobin A1C 03/14/2018 09/11/2017, 2 10/2016, 02/03/2015 Lipid Panel 09/04/2021 09/04/2020, 08/0 08/2019, 12/07/2018, Additional history exists eGFR 05/12/2023 05/11/2022, 09/04/2020 Covid-19 Vaccine ( - 2023-2 5 season) 2023 04/25/2020, 04/04/2020 Influenza Vaccine [...] LAB BLOOD ORDERABLES Final Res ult GEMA [address] [facility] Department [place] [address] * (ABNORMAL) Lipid panel (09/04/2020 [...] Pediatrics 2011;128:S213 2. NCEP Expert Panel. Circulation 2003;110:227 Current Interpretive Data was last revised on [...] Pediatrics 2011;128:S213 2. NCEP Expert Panel. Circulation 2003;110:227 Current Interpretive Data was last revised on [...] Pediatrics 2011;128:S213 2. NCEP Expert Panel. Circulation 2003;110:227 Current Interpretive Data was last revised on 2017. Chol/HDL ratio 4 GEMA Blood specimen (specimen) 09/04/2020 11:13 AM CDT 09/04/2020 11:38 AM CDT us Sam Morales MD LAB BLOOD ORDERABLES F inal Result Performing Organization Address City/[facility] Co de Phone Number EGMA [address] [facility] Department [place] [address] * (ABNORMAL) Hemoglobin A1c (09/11/2017 11:58 AM CDT) Hemoglobin A1c % 6.7(H) 4.0 - 5.6 % 09/11/2017 2:30 PM CDT [facility] HISTORICAL RESULTS Comment: ADA 2016 GUIDELINES: Initial Diagnostic Criteria HbA1c Result: Interpretation: <5.7% Normal 5.7-6.4% At risk for diabetes mellitus >=6.5% Consistent with diabetes mellitus Diabetes monitoring Target value (ADA Recommended) <7% 09/11/2017 11:5 8 AM CDT 09/11/2017 1:57 PM CDT us Archie Parker MD LAB BLOOD ORDERABLES Final Result Performing Organization Address City/[facility]/ZIP Co de Phone Number [facility] [employer] HISTORICAL RESULTS from Last 3 Months or Most Recently Relevant to Health Maintenance Insurance [address] [place] [id number] [address] [facility] [address] [place] [id number] [facility] ACCESS CHOICE MEDICARE RAILROAD MEDICARE RAILROAD [facility] Care Teams Acetylene Plant Operator Relationship Specialty Start Date End Date Alen Juarez MD PCP - General 11/10/16 Alen Juarez MD 11/09/16 Sam Morales MD Consulting Physician Cardiology 05/26/21
--- OUTSIDE RECORDS SUMMARY | 2024-06-26 08:29 | XMS_ITS | Encounter Summary ---
Author Organization [facility] Facility Care Team Providers Care Durable Medical Equipment Technician Name Role Phone Alen Juarez MD Primary Care Provider + [phone] Unknown, Notinfile Primary Care Provider Unavail able Alen Juarez MD Primary Care Provider + [phone] Alen Juarez MD Unavailable [phone] Sam Morales MD Unavailable + [phone] Encounter Details Date Type Department Care Team (Latest Contact Info) Description 11/30/2015 Orders Only [facility] CLINCONV Provider, MD Edenilson [address] [place] [address] Social History Tobacco Use Types Packs/Day Years Used Date Smoking Tobacco: Never Assessed Sex and Gender Information Value Date Recorded Sex Assigned at Not on file 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
--- OUTSIDE RECORDS SUMMARY | 2024-06-26 08:29 | XMS_ITS | Continuity of Care Document ---
Author Organization [facility] Address [address] [place] [address] [place] [address] Phone Care Team Providers Care Corporate Training Manager Name Role Phone Khoi Dubois Unavailable Unavailable Procedures Procedure Date Office/outpatient Visit, Est Corneal Pachymetry Visual Field Examination(s) Office/outpatient Visit, Est Refraction Advance Directives Directive Yes / No Effective Date File Name No Information Encounters Encounter Description Practice Location Reason(s) For Visit Diagnoses Date Provider Providers Copied on Encounter Office/outpat ient Visit, Est [facility], [address] [place] [address] [address], [place], [place], [id number], tel:[phone] [facility] No Information 9 Roneynasmarisel Dalyhil. [address] [place] [address], [address], [place]. tel:[phone] Referring Provider: Khoi marquez, [address] [place] [address], [address]. tel:[phone] [facility], [address] [place] [address] [address], [place], [place], [id number], tel:[phone] [facility] No Information 200 9 Rone[address]marisel Dalyhil. [address] [place] [address], [address], [place]. tel:[phone] Referring Provider: Khoi marquez, [address] [facility] [address], [place], [address]. tel:[phone] Office/outpat ient Visit, [facility] Eye [facility], [address] [facility] [address], [place], [place], [id number], [place] tel:[phone] [facility] No Information 8 Silvino Westfall. [address] [facility] [address], [place], [address], [place]. tel:[phone] Family History Family Member Type Diagnosis Age [...]
--- OUTSIDE RECORDS SUMMARY | 2024-06-26 08:29 | XMS_ITS ---
Author Organization [facility] Address [address] [facility] [address] [place], [place] [id number] Care Team Providers Care Circular Tank Cooper Name Role Phone POLI TANNER Unavailable [phone] Alen Juarez Unavailable Unavailable REASON FOR VISIT *General care Encounters Encounter Location Date Provider Diagnosis [facility] [address] [facility] [address] [place], [place] [id number] 05/01/2024 POLI TANNER Plan Of Treatment No Information Progress Notes * MEGAN CACERESOB:1940 ( 83 yo M)Acc No.[id number]:05/01/2024 Patient: TON COLEMAN Provider: Farooq Tanner DPM :1940 A ge:83 Y S ex:Male Date:05/01/2024 [address] [id number] Subjective: * Chief Complaints: * 1 . *General care. * Medical History: Objective: * Vitals: Assessment: Plan: * Treatment: * Billing Information: * Visit Code: * Procedure Codes: * Electronic signature of MIKKI VILLANUEVA DPM on 06/26/2024 at 08:29 AM CDT Sign off status: Pending * Provider: Farooq Tanner DPM Date: 05/01/2024 Generated for Printi ng/Faxing/eTransmitting on: 06/26/2024 08:29 AM CDT
== END 2024-06-26 08:18 | disposition home or self-care (01) ==
LOC: ANHIMG 08:18
PROVIDERS: PCP Family Medicine; Visit Provider Physician Assistant Medical
DX: R59.0 Localized enlarged lymph nodes (principal)
CPT/HCPCS: 38505; 76942; 87070; 87075; 87181; 87205; 88108; 88184; 88305; 88312; 88313; 88342

== ENCOUNTER 2024-07-03 13:41 | Outpatient (CLI) | payer MEDICARE, SELFPAY ==
--- OUTSIDE RECORDS SUMMARY | 2024-07-03 13:50 | XMS_ITS | Referral Summary ---
Author Organization [facility] Address [address] [place] [address] Care Team Providers Care Acrylic Fabricator Name Role Phone Alen Juarez MD Primary Care Provider [phone] Alen Juarez MD Unavailable [phone] Sam Morales MD Unavailable Encounters Date Type Department Care Team Description 05/31/2024 Telephone [facility] Ophthalmology [address] [place] [address] Jimbo Correa MD from Last [...] elevated myocardial infarction) (HCC),Coronary artery disease of [place] artery of [place] heart with stable angina pectoris,RODY on CPAP,Preoperat eliezer clearance,Ankl e edema Take 1 tablet (25 mg total) by mouth daily 90 tablet 2 4 Active rosuvastatin (CRESTOR) 10 mg tabletIndicati ons:NSTEMI (non-ST elevated myocardial infarction) (HCC),Coronary artery disease of [place] artery of [place] heart with stable angina pectoris,RODY on CPAP,Preoperat [...] (pediatric) 05/2017 Coronary artery disease invo lving [place] coronary artery of [place] heart without angina pectoris 10/02/2017 Dyslipidemia 10/02/2017 [...] on file 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 Gender Identity Not on file Sexual Orientation Not on file Last Filed Vital Signs Vital Sign Reading Time Taken Comments Blood Pressure 124/60 07/21/2023 12:51 PM CDT Pulse 65 07/21/2023 12:51 PM CDT Temperature 36.4 C (97.5 F) 04/07/2023 4:06 PM STORE MANAGER Respiratory Rate 20 04/07/2023 4:06 PM STORE MANAGER Oxygen Saturation 93% 07/21/2023 12:51 PM CDT [...] LAB BLOOD ORDERABLES Final Res ult GEMA [address] [facility] Department [place] [address] * (ABNORMAL) Lipid panel (09/04/2020 11:13 AM [...] LAB BLOOD ORDERABLES F inal Result GEMA [address] [facility] Department [place] [address] * (ABNORMAL) Hemoglobin A1c (09/11/2017 11:58 AM CDT) Hemoglobin A1c % 6.7(H) 4.0 - 5.6 % 09/11/2017 2:30 PM CDT [facility] HISTORICAL RESULTS Comment: ADA 2016 GUIDELINES: Initial Diagnostic Criteria HbA1c Result: Interpretation: <5.7% Normal 5.7-6.4% At risk for diabetes mellitus >=6.5% Consistent with diabetes mellitus Diabetes monitoring Target value (ADA Recommended) <7% 09/11/2017 11:5 8 AM CDT 09/11/2017 1:57 PM CDT Archie Parker MD LAB BLOOD ORDERABLES Final Result [facility] HISTORICAL RESULTS from Last 3 Months or Most Recently Relevant to Health Maintenance Insurance [address] [place] [address] MEDICARE [employer] [facility] [address] [id number] [facility] Member Subscriber Plan / Payer ( fective 2014-Present) Name:DeniseeyalAngelobryson Beal Relation to Subscriber:Self Name:Ruiz Morse Payer ID:[id number] (NAIC) Type:[facility] Address: [address] [place] [id number] MEDICARE RAILROAD [facility] [place] [place] [address] Care Teams Acrylic Fabricator Relationship Specialty Start Date End Date Alen Juarez MD PCP - General 11/10/16 Alen Juarez MD 11/09/16 Sam Morales MD Consulting Physician Cardiology 05/26/21
--- OUTSIDE RECORDS SUMMARY | 2024-07-03 13:50 | XMS_ITS | Clinical Summary ---
Author Organization [facility] Address [address] [place] [address] Care Team Providers Care Cisco Network Architect Name Role Phone Alen Juarez MD Primary Care Provider [phone] Alen Juarez MD Unavailable [phone] Sam Moralse MD Unavailable [phone] Allergies No known active allergies Medications DULoxetine [...] elevated myocardial infarction) (HCC),Coronary artery disease of [place] artery of [place] heart with stable angina pectoris,RODY on CPAP,Preoperat eliezer clearance,Ankl e edema Take 1 tablet (25 mg total) by mouth daily 90 tablet 2 4 Active rosuvastatin (CRESTOR) 10 mg tabletIndicati ons:NSTEMI (non-ST elevated myocardial infarction) (HCC),Coronary artery disease of [place] artery of [place] heart with stable angina pectoris,RODY on CPAP,Preoperat [...] (pediatric) 05/2017 Coronary artery disease invo lving [place] coronary artery of [place] heart without angina pectoris 10/02/2017 Dyslipidemia 10/02/2017 Closed fracture of proximal end of humerus 11/09 Pain in shoulder 11/07/2016 Sensorineural hearing loss of high frequency Tinnitus 11/30/2015 Resolved Problems Problem Noted Date Diagnosed Date Resolved Date NSTEMI (non-ST elevated myoc ardial infarction) 10/02/2017 01/13/2023 Encounters Date Type Department Care Team Description 05/31/2024 Telephone [facility] Ophthalmology [address] [place] [address] Jimbo Correa MD from Last 3 Months [...] on file 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 Male 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 Gender Identity Not on file Sexual Orientation Not on file Obstetrics History Last Filed Vital Signs Vital Sign Reading Time Taken Comments Blood Pressure 124/60 07/21/2023 12:51 PM CDT Pulse 65 07/21/2023 12:51 PM CDT Temperature 36.4 C (97.5 F) 04/07/2023 4:06 PM CAMERA PERSON Respiratory Rate 20 04/07/2023 4:06 PM CAMERA PERSON Oxygen Saturation 93% 07/21/2023 12:51 PM CDT [...] LAB BLOOD ORDERABLES Final Res ult GEMA [address] [facility] Department [place] [address] * (ABNORMAL) Lipid panel (09/04/2020 [...] ORDERABLES F inal Result Performing Organization Address City/[facility] Co de Phone Number GEMA [address] [facility] Department [place] [address] * (ABNORMAL) Hemoglobin A1c (09/11/2017 11:58 AM CDT) Hemoglobin A1c % 6.7(H) 4.0 - 5.6 % 09/11/2017 2:30 PM CDT [facility] [employer] OGK[facility] HISTORICAL RESULTS Comment: ADA 2016 GUIDELINES: Initial Diagnostic Criteria HbA1c Result: Interpretation: <5.7% Normal 5.7-6.4% At risk for diabetes mellitus >=6.5% Consistent with diabetes mellitus Diabetes monitoring Target value (ADA Recommended) <7% 09/11/2017 11:5 8 AM CDT 09/11/2017 1:57 PM CDT us Archie Parker MD LAB BLOOD ORDERABLES Final Result Performing Organization Address City/[facility]/ZIP Co de Phone Number [facility] [employer] HISTORICAL RESULTS from Last 3 Months or Most Recently Relevant to Health Maintenance Insurance [address] [place] [address] [address] [facility] [address] [place] [id number] [facility] ACCESS CHOICE MEDICARE RAILROAD MEDICARE RAILROAD [facility] Care Teams Cisco Network Architect Relationship Specialty Start Date End Date Alen Juarez MD PCP - General 11/10/16 Alen Juarez MD 11/09/16 Sam Morales MD Consulting Physician Cardiology 05/26/21
--- OUTSIDE RECORDS SUMMARY | 2024-07-03 13:50 | XMS_ITS | Encounter Summary ---
Author Organization [facility] Facility Care Team Providers Care Gusset Stitcher Name Role Phone Alen Juarez MD Primary Care Provider + [phone] Unknown, Notinfile Primary Care Provider Unavail able Alen Juarez MD Primary Care Provider + [phone] Alen Juarez MD Unavailable [phone] Sam Morales MD Unavailable + [phone] Encounter Details Date Type Department Care Team (Latest Contact Info) Description 11/30/2015 Orders Only [facility] CLINCONV Provider, MD Edenilson [address] [place] [address] Social History Tobacco Use Types Packs/Day Years Used Date Smoking Tobacco: Never Assessed Sex and Gender Information Value Date Recorded Sex Assigned at Not on file 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
--- OUTSIDE RECORDS SUMMARY | 2024-07-03 13:50 | XMS_ITS ---
Author Organization [facility] Address [address] [facility] [address] [place], [place] [address] Care Team Providers Care Biomedical Photographer Name Role Phone POLI TANNER Unavailable [phone] Alen Juarez Unavailable Unavailable REASON FOR VISIT *General care Encounters Encounter Location Date Provider Diagnosis [facility] [address] [facility] [address] [place], [place] [address] 08/16/2023 POLI TANNER Plan Of Treatment No Information Progress Notes * MEGAN CACERESOB:1940 ( 83 yo M)Acc No.[id number]:08/16/2023 Patient: TON COLEMAN Provider: Farooq Tanner DPM :1940 A ge:83 Y S ex:Male Date:08/16/2023 [address] [id number] Subjective: * Chief Complaints: * 1 . *General care. * Medical History: Objective: * Vitals: Assessment: Plan: * Treatment: * Billing Information: * Visit Code: * Procedure Codes: * Electronic signature of MIKKI VILLANUEVA DPM on 07/03/2024 at 01:50 PM CDT Sign off status: Pending * Provider: Farooq Tanner DPM Date: 08/16/2023 Generated for Printi ng/Faxing/eTransmitting on: 07/03/2024 01:50 PM CDT
--- OUTSIDE RECORDS SUMMARY | 2024-07-03 13:50 | XMS_ITS | Encounter Summary ---
Author Organization [facility] Facility Care Team Providers Care Gas Meter Repairer Name Role Phone Alen Juarez MD Primary Care Provider [phone] Alen Juarez MD Unavailable [phone] Sam Morales MD Unavailable + [phone] Encounter Details Date Type Department Care Team (Latest Contact Info) Description 10/13/2017 Orders Only [facility] CLINCONV Provider, MD Edenilson [address] [place] [address] Social History Tobacco Use Types Packs/Day Years Used Date Smoking Tobacco: Never Assessed Sex and Gender Information Value Date Recorded Sex Assigned at Not on file 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
--- OUTSIDE RECORDS SUMMARY | 2024-07-03 13:50 | XMS_ITS ---
Author Organization [facility] Address [address] [place], [place] [phone] Care Team Providers Care Appeals Reviewer Veteran Name Role Phone POLI TANNER Unavailable [phone] Alen Juarez Unavailable Unavailable Allergies No Known [...] [address] [place], [place] [id number] 05/31/2023 POLI TANNER Onychomycosis B35.1 ; Pain [...] the patient use an emollient such as kyui-fdc-[id number] r Eucerin cream, Vanicream, or other lotion [...] the patient use an emollient such as yxdw-ipe-vbcrxpf Eucerin cream, Vanicream, or other lotion to the affected area. Next Appt Details Follow Up: 3 Months, Reason: at risk foot care Progress Notes * MEGAN CACERESOB:1940 ( 83 yo M)Acc No.[id number]:05/31/2023 Patient: TON COLEMAN Provider: Farooq Tanner DPM :1940 A ge:82 Y S ex:Male Date:05/31/2023 [id number] Subjective: * Chief Complaints: * 1 . [...] Tinel's sign: n egative. Vibratory: n ormal. [place] 5.07 monofilament d iminished protective sensation to [...] the patient use an emollient such as szmh-jwx-epqyexs Eucerin cream, Vanicream, or other lotion to the affected area. * Procedure Codes: 1 1721 DEBRIDE NAIL, 6 OR MORE, Modifiers: Q8 * Follow Up: 3 Months (Reason: at risk foot care) * Billing Information: * Visit Code: * Procedure Codes: 04237 DEBRIDE NAIL, 6 OR MORE. Modifiers: Q8 * Electronic signature of MIKKI VILLANUEVA DPM on 07/03/2024 at 01:50 PM CDT Sign off status: Pending * Provider: Farooq Tanner DPM Date: 0 05/31/2023 Generated for Mary sandoval/Kymberly/Timbo on: 0 07/03/2024 01:50 PM CDT History and Physical Notes * [...] palpation Neurologic Tinel's sign: negative Vibratory: normal [place] 5.07 monofilament dimini shed protective sensation to the level of the digits via 5.07 g swmf bilateral Vascular Dorsalis pedis pulse: /4 , bilateral Edema: mild, non-pitting, b ilateral Capillary refill: greater than 3 secon ds Posterior tibial pulse: 1/4 , bilaterall y Musculoskeletal Muscle Strength Muscle strength is 5/5 in regards to dorsiflexion, plantarflexion, inversion, and eversion in bilateral lower extremities. Constitutional Constitutional The patient is a wake, alert, well developed, well groomed and well nourished.
--- OUTSIDE RECORDS SUMMARY | 2024-07-03 13:50 | XMS_ITS | Continuity of Care Document ---
Author Organization [facility] Address [address] [place] [address] [place] [address] Phone Care Team Providers Care Business Management Specialist Name Role Phone Khio Dubois Unavailable Unavailable Procedures Procedure Date Office/outpatient Visit, Est Corneal Pachymetry Visual Field Examination(s) Office/outpatient Visit, Est Refraction Advance Directives Directive Yes / No Effective Date File Name No Information Encounters Encounter Description Practice Location Reason(s) For Visit Diagnoses Date Provider Providers Copied on Encounter Office/outpat ient Visit, Est [facility], [address] [place] [address] [address], [place], [place], [id number], tel:[phone] [facility] ([facility] No Information 9 Roneynasmarisel Dalyhil. [address] [place] [address], [address], [place]. tel:[phone] Referring Provider: Khoi marquez, [address] [place] [address], [address]. tel:[phone] [facility], [address] [place] [address] [address], [place], [place], [id number], tel:[phone] [facility] ([facility]) No Information 200 9 Roneynasmarisel Dalyhil. [address] [place] [address], [address], [place]. tel:[phone] Referring Provider: Khoi marquez, [address] [facility] [address], [address]. tel:[phone] Office/outpat ient Visit, [facility], [address] [place] [address] [facility] [address], [place], [place], [id number], [place] tel:[phone] [facility] ([facility]) No Information 8 Silvino Westfall. [address] [facility] [address], [address], [place]. tel:[phone] Family History Family Member Type Diagnosis Age [...]
--- OUTSIDE RECORDS SUMMARY | 2024-07-03 13:51 | XMS_ITS | Patient Health Record ---
Author Organization [facility] Address [address] [place], [place] [id number] Care Team Providers Care Fisheries Inspector Name Role Phone POLI PEREZ Unavailable [phone] Alen Juarez Unavailable Unavailable Allergies No Known [...] Coverage End Date Medicare Soniya Abbott GBA [id number] [address] [address] [place], [place] [id number] [phone] [id number] TON CACERES Self - patient is the insured [facility] ([facility]) ATTN CLAIMS [address] [place] [address] [id number] TON CACERES Self - patient is the insured Medical (General) History Medical History History ICD Code acid reflux neuropathy Leg/Feet cramps Steroid Treatment Arthritis Cancer Gout Sleep apnea Diabetic Blood clots Surgical History Surgery Date(Month/Year) Gall Bladder
--- OUTSIDE RECORDS SUMMARY | 2024-07-03 13:51 | XMS_ITS | Clinical Summary ---
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
--- OUTSIDE RECORDS SUMMARY | 2024-07-03 13:51 | XMS_ITS ---
Author Organization [facility] Address [address] [facility] [address] [place], [place] [id number] Care Team Providers Care Civil Estimator Name Role Phone POLI TANNER Unavailable [phone] Alen Juarez Unavailable Unavailable REASON FOR VISIT *General care Encounters Encounter Location Date Provider Diagnosis [facility] [address] [facility] [address] [place], [place] [phone] 05/01/2024 POLI TANNER Plan Of Treatment No Information Progress Notes * MEGAN CACERESOB:1940 ( 83 yo M)Acc No.[id number]:05/01/2024 Patient: TON COLEMAN Provider: Farooq Tanner DPM :1940 A ge:83 Y S ex:Male Date:05/01/2024 [facility] [id number] Subjective: * Chief Complaints: * 1 . *General care. * Medical History: Objective: * Vitals: Assessment: Plan: * Treatment: * Billing Information: * Visit Code: * Procedure Codes: * Electronic signature of MIKKI VILLANUEVA DPM on 07/03/2024 at 01:50 PM CDT Sign off status: Pending * Provider: Farooq Tanner DPM Date: 05/01/2024 Generated for Printi ng/Faxing/eTransmitting on: 0 07/03/2024 01:50 PM CDT
--- OUTSIDE RECORDS SUMMARY | 2024-07-03 13:51 | XMS_ITS | Continuity of Care Document ---
Author Organization [facility]. If a dditional information is needed, contact Health Information Management at [phone] Address [address] [place] [address] Phone Care Team Providers Care Closed Circuit Screen Watcher Name Role Phone Unavailable Unavailable Unavailable Unavailable Unavailable Unavailable
[2024-07-03 14:38] LABS: Albumin Level 4.3 g/dL (3.5-5.1); Anion Gap 10 mmol/L (4-12); Blood Urea Nitrogen 20 mg/dL (9-20); Calcium 9.3 mg/dL (8.4-10.2); Carbon Dioxide 23 mmol/L (22-30); Chloride 106 mmol/L (98-107); Estimated Glomerular Filt Rate 43; Glucose 157 mg/dL (65-110); Phosphorus 3.6 mg/dL (2.5-4.5); Sodium 139 mmol/L (137-145)
[2024-07-03 16:18] LABS: Creatinine Urine 155.3 mg/dL; Total Protein Urine Random 12 mg/dL; Ur Ttl Prot Creatinine Ratio 0.08 mg/mg (0-0.20)
== END 2024-07-03 13:42 | disposition home or self-care (01) ==
PROVIDERS: PCP Family Medicine; Visit Provider Internal Medicine Nephrology
DX: I12.9 Hypertensive chronic kidney disease with stage 1 through stage 4 chronic kidney disease, or unspecified chronic kidney disease (principal); E11.22 Type 2 diabetes mellitus with diabetic chronic kidney disease; N18.31 Chronic kidney disease, stage 3a
CPT/HCPCS: 36415; 80069; 82570; 84156

== ENCOUNTER 2024-09-05 14:32 | Outpatient (CLI) | payer MEDICARE, SELFPAY ==
--- NOTE | ~2024-09-05 | XR_ITS ---
CHEST RADIOGRAPH, PA AND LATERAL CLINICAL HISTORY: Chronic cough x5 MONTHS . COMPARISON: 09/08/2020 TECHNIQUE: PA and lateral views of the chest. FINDINGS The cardiomediastinal silhouette is unremarkable. The lungs are clear. IMPRESSION: No focal infiltrate or effusion. If clinical suspicion persists, cross-sectional imaging (noncontrast enhanced CT examination of the c hest) is suggested for further evaluation. Reviewed, dictated and finalized at location A. IMPRESSION: No focal infiltrate or effusion. If clinical suspicion persists, cross-sectional imaging (noncontrast enhanced C T examination of the chest) is suggested for further evaluation.
--- OUTSIDE RECORDS SUMMARY | 2024-09-05 14:44 | XMS_ITS | Patient Health Record ---
Author Organization [facility] Address [address] [place], [place] [id number] Care Team Providers Care Manufacturing Quality Inspector Name Role Phone POLI PEREZ Unavailable [phone] Alen Juarez Unavailable Unavailable Allergies No Known [...] Coverage End Date Medicare Soniya Abbott GBA [id number] [address] [address] [place], [place] [phone] [id number] TON CACERES Self - patient is the insured [facility] ([facility]) ATTN CLAIMS [address] [place] [address] [id number] TON CACERES Self - patient is the insured Medical (General) History Medical History History ICD Code acid reflux neuropathy Leg/Feet cramps Steroid Treatment Arthritis Cancer Gout Sleep apnea Diabetic Blood clots Surgical History Surgery Date(Month/Year) Gall Bladder
--- OUTSIDE RECORDS SUMMARY | 2024-09-05 14:44 | XMS_ITS | Clinical Summary ---
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
--- OUTSIDE RECORDS SUMMARY | 2024-09-05 14:45 | XMS_ITS ---
Author Organization [facility] Address [address] [facility] [address] [place], [place] [phone] Care Team Providers Care Snack Bar Attendant Name Role Phone POLI TANNER Unavailable [phone] Alen Juarez Unavailable Unavailable REASON FOR VISIT *General care Encounters Encounter Location Date Provider Diagnosis [facility] [address] [facility] [address] [place], [place] [id number] 08/16/2023 POLI TANNER Plan Of Treatment No Information Progress Notes * MEGAN CACERESOB:1940 ( 84 yo M)Acc No.[id number]:08/16/2023 Patient: TON COLEMAN Provider: Farooq Tanner DPM :1940 A ge:83 Y S ex:Male Date:08/16/2023 Address[address] [id number] Subjective: * Chief Complaints: * 1 . *General care. * Medical History: Objective: * Vitals: Assessment: Plan: * Treatment: * Billing Information: * Visit Code: * Procedure Codes: * Electronic signature of MIKKI VILLANUEVA DPM on 09/05/2024 at 02:45 PM CDT Sign off status: Pending * Provider: Farooq Tanner DPM Date: 08/16/2023 Generated for Printi ng/Faxing/eTransmitting on: 09/05/2024 02:45 PM CDT
--- OUTSIDE RECORDS SUMMARY | 2024-09-05 14:45 | XMS_ITS | Encounter Summary ---
Author Organization [facility] Care Team Providers Care Interactive Web Developer Name Role Phone Alen Juarez MD Primary Care Provider [phone] Unknown, Notinfile Primary Care Provider Unavail able Alen Juarez MD Primary Care Provider [phone] Alen Juarez MD Unavailable [phone] Sam Mroales MD Unavailable [phone] Osbaldo June MD Unavailable Encounter Details Date Type Department Care Team (Latest Contact Info) Description 11/30/2015 Orders Only [facility]IN[facility] ProviderEdenilson MD [address] [place] [address] Social History Tobacco Use Types Packs/Day Years Used Date Smoking Tobacco: Never Assessed Sex and Gender Information Value Date Recorded Sex Assigned at Not on file 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 Gender Identity Not on file Sexual Orientation Not on file documented as of this encounter Plan of Treatment Upcoming Encounters Date Type Department Care Team (Latest Contact Info) Description 10/24/2024 9:35 AM CDT Hospital Encounter [facility] Operating Room [address] [facility] [place] [address] Jimbo Correa MD [address] [address] 10/24/2024 9:35 AM CDT - 10/24/2024 11:30 AM CDT Surgery [facility] Operating Room [address] [facility] [place] [phone] Jimbo Correa MD [address] [facility] 6 [place] [address] BILATERAL UPPER BLEPHAROPLASTY Scheduled Procedures Name Priority Associated Diagnoses Date/Ti me BLEPHAROPLASTY UPPER. Decreased peripheral vision, bilateral Dermatochalasis of both upper eyelids Ectropion of both lower eyelids, unspecified ectropion type 10/24/2024 9:35 AM CDT REPAIR ECTROPION. Decreased peripheral vision, bilateral Dermatochalasis of both upper eyelids Ectropion of both lower eyelids, unspecified ectropion type 10/24/2024 9:35 AM CDT documented as of this encounter Procedures Procedure Name Priority Date/Time Associated Diagnosis Comments AUDIOLOGY RECORD 11/30/2015 12:0 0 AM CDT documented in this encounter Results * AUDIOLOGY RECORD (11/30/2015 12:00 AM CDT) Narrative 11/30/2015 12:00 AM CDT Ordered by an unspecified provider. us Historical Provider NURSING COMMUNICATION Fin al Result documented in this encounter Visit Diagnoses Not on filedocumented in this encounter Care Teams Interactive Web Developer Relationship Specialty Start Date End Date Alen Juarez MD PCP - General 11/13/13 11/08/16 Unknown, Notinfile PCP - General 11/09/16 11/09/16 Alen Juarez MD PCP - General 11/10/16 Alen Juarez MD 11/09/16 Sam Morales MD Consulting Physician Cardiology 05/26/21 Osbaldo June MD [address] [facility] 102 [facility] 102 [place] [address] Cardiology 08/06/24 documented as of this encounter
--- OUTSIDE RECORDS SUMMARY | 2024-09-05 14:45 | XMS_ITS | Referral Summary ---
Author Organization [facility] Address [address] [place] [address] Care Team Providers Care De Icer Installer Name Role Phone Alen Juarez MD Primary Care Provider [phone] Alen Juarez MD Unavailable [phone] Sam Morales MD Unavailable + [phone] Osbaldo June MD Unavailable Encounters Date Type Department Care Team Description 08/12/2024 9:45 AM CDT Office Visit [facility] Cardiology [address] [place] [address] Osbaldo June MD Coronary artery disease involving [place] coronary artery of [place] heart without angina pectoris (Primary Dx) 2024 10:20 AM CDT Imaging Exam [facility] [address] [place] [address] [place] [phone] Ptosis of both eyelids (Primary Dx) 2024 10:00 AM CDT Office Visit [facility] [address] [place] [address] Jimbo Correa MD Dermatochalasis of both upper eyelids (Primary Dx); Decreased peripheral vision of both eyes; Senile ectropion of both lower eyelids; Eye irritation; 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 from Last 3 Months Allergies No known [...] total) by mouth daily 05/04/19 22 Active spironolactone (ALDACTONE) 25 mg tabletIndicati ons:NSTEMI (non-ST elevated myocardial infarction) ([facility]),Coronary artery disease of [place] artery of [place] heart with stable angina pectoris,RODY on CPAP,Preoperat eliezer clearance,Ankl e edema Take 1 tablet (25 mg total) by mouth daily 90 tablet 2 03/21/19 24 Active rosuvastatin (CRESTOR) 10 mg tabletIndicati ons:NSTEMI (non-ST elevated myocardial infarction) ([facility]),Coronary artery disease of [place] artery of [place] heart with stable angina pectoris,RODY on CPAP,Preoperat eliezer clearance,Ankl e edema Take 1 tablet (10 mg total) by mouth daily 90 tablet 1 05/22/19 25 Active acetaminophen (TYLENOL) 500 mg tablet Take by mouth 08/06/19 24 Active fluticasone propionate (FLONASE) 50 mcg/actuation nasal spray SPRAY 2 SPRAYS INTO EACH NOSTRIL ONCE A DAY 06/11/19 25 Active tamsulosin (FLOMAX) 0.4 mg extended release capsule Take 1 capsule (0.4 mg total) by mouth 05/20/19 25 Active Ozempic 2 mg/dose (8 mg/3 mL) pen injector injection Inject 2 mg under the skin once a week 07/21/19 25 Active Ozempic 1 mg/dose (4 mg/3 mL) pen injector injection 1 MG (0.75 ML) SUBCUTANEOUSLY WEEKLY 01/10/20 23 025 Discontin ued(Alter ricci therapy) Active Problems Problem Noted Date Diagnosed Date Decreased peripheral vision, bilateral Dermatochalasis of both upper eyelids 08/21/2024 Ectropion of both lower eyelids 08/21/2024 Diabetes mellitus type II, non insulin dependent 07/21/2023 Hypertension 07/21/2023 History of percutaneous coronary intervention 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 11/16/2017 Obstructive sleep apnea (adult) (pediatric) 05/2017 Coronary artery disease invo lving [place] coronary artery of [place] heart without angina pectoris 10/02/2017 Dyslipidemia 10/02/2017 [...] on file Legal 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 Gender Identity Not on file Sexual Orientation Not on file Last Filed Vital Signs Vital Sign Reading Time Taken Comments Blood Pressure 118/60 08/12/2024 9:41 AM CDT Pulse 78 08/12/2024 9:41 AM CDT Temperature 36.4 C (97.5 F) 04/07/2023 4:06 PM FLOOR SPACE ALLOCATOR Respiratory Rate 20 04/07/2023 4:06 PM FLOOR SPACE ALLOCATOR Oxygen Saturation 97% 08/12/2024 9:41 AM CDT Inhaled Oxygen Concentration - - Weight 127.5 kg (281 lb) 08/12/2024 9:41 AM CDT Height 188 cm (6' 2) 08/12/2024 9:41 AM CDT Body Mass Index 36.08 08/12/2024 9:41 AM CDT Plan of Treatment Upcoming Encounters Date Type Department Care Team (Latest Contact Info) Description 10/24/2024 9:35 AM CDT Hospital Encounter [facility] Operating Room [address] [facility] [place] [phone] [place] [address] [place] [address] [place], [place] [address]E [address] [place], [place] [id number] 10/24/2024 9:35 AM CDT - 10/24/2024 11:30 AM CDT Surgery [facility] Operating Room [address] [facility] [place] [phone] Jimbo Correa MD [address] [place] [address] BILATERAL UPPER BLEPHAROPLASTY Scheduled Procedures Name Priority Associated Diagnoses Date/Ti me BLEPHAROPLASTY UPPER. Decreased peripheral vision, bilateral Dermatochalasis of both upper eyelids Ectropion of both lower eyelids, unspecified ectropion type 10/24/2024 9:35 AM CDT REPAIR ECTROPION. Decreased peripheral vision, bilateral Dermatochalasis of both upper eyelids Ectropion of both lower eyelids, unspecified ectropion type 10/24/2024 9:35 AM CDT Goals Goal Patient Goal Type Associated Problems Recent Progress Patient-Stated? Author Autogenerat ed Goal Care Plan Autogenerated Problem No Mary Lou Burt RN Procedures Procedure Name Priority Date/Time Associated Diagnosis Comments GVF LIMITED/PTOSIS - OU - BOTH EYES Routine 2024 10:41 AM CDT Ptosis of both eyelids EGFR STAT 05/11/2022 12:45 AM CDT LIPID PANEL Routine 09/04/2020 11:13 AM CDT Dyslipidemia HEMOGLOBIN A1C Routine 09/11/2017 11:58 AM CDT from Last 3 Months or Most Recently Relevant to Health Maintenance Results * GVF Limited/Ptosis - OU - Both Eyes (2024 10:41 AM CDT) Anatomical Region Laterality Modality Head Visual Field Narrative 08/15/2024 4:04 PM CDT Right Eye Fixation was good. Cooperation was good. Reliability was good. Left Eye Fixation was good. Cooperation was good. Reliability was good. Notes Findings: Right eye (OD): Untaped superior meridian at 12 degrees and taped superior meridian at 50 degrees. Left eye (OS): Untaped superior meridian at 20 degrees and taped superior meridian at 50 degrees. Impression: Significant improvement in superior visual field with elevation bilaterally. Jimbo Correa MD OPHTH VISUAL FIELD Final Result * eGFR (05/11/2022 12:45 AM CDT) eGFR [...] 5 AM CDT 05/11/2022 12:48 AM CDT Ilia Garzon DO LAB BLOOD ORDERABLES Final Res ult GEMA [address] [facility] Department [place] [address] * (ABNORMAL) Lipid panel (09/04/2020 [...] LAB BLOOD ORDERABLES F inal Result GEMA [address] [facility] Department of Laboratories [place], [place] [id number] * (ABNORMAL) Hemoglobin A1c (09/11/2017 11:58 AM CDT) Hemoglobin A1c % 6.7(H) 4.0 - 5.6 % 09/11/2017 2:[address] [facility] HISTORICAL RESULTS Comment: ADA 2016 GUIDELINES: Initial Diagnostic Criteria HbA1c Result: Interpretation: <5.7% Normal 5.7-6.4% At risk for diabetes mellitus >=6.5% Consistent with diabetes mellitus Diabetes monitoring Target value (ADA Recommended) <7% 09/11/2017 11:5 8 AM CDT 09/11/2017 1:57 PM CDT Archie Parker MD LAB BLOOD ORDERABLES Final Result [facility] [employer] HISTORICAL RESULTS from Last 3 Months or Most Recently Relevant to Health Maintenance Additional Health Concerns Active Problems Noted Date Diagnosed Date Autogenerated Problem 08/26/2024 [facility] [address] [place] [phone] [facility] ACCESS CHOICE MEDICARE RAILROAD [address] MEDICARE SUPPLEMENT MEDICARE RAILROAD [address] MEDICARE SUPPLEMENT Care Teams De Icer Installer Relationship Specialty Start Date End Date Alen Juarez MD PCP - General 11/10/16 Alen Juarez MD 11/09/16 Sam Morales MD Consulting Physician Cardiology 05/26/21 Osbaldo June MD [address] [place] [address] Cardiology 08/06/24
--- OUTSIDE RECORDS SUMMARY | 2024-09-05 14:45 | XMS_ITS | Encounter Summary ---
Author Organization [facility] Facility Care Team Providers Care Networking Administrator Name Role Phone Alen Juarez MD Primary Care Provider [phone] Alen Juarez MD Unavailable [phone] Sam Morales MD Unavailable [phone] Osbaldo June MD Unavailable Encounter Details Date Type Department Care Team (Latest Contact Info) Description 10/13/2017 Orders Only [facility] CLINCONV Provider, MD Edenilson [address] [place] [address] Social History Tobacco Use Types Packs/Day Years Used Date Smoking Tobacco: Never Assessed Sex and Gender Information Value Date Recorded Sex Assigned at Not on file 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 Gender Identity Not on file Sexual Orientation Not on file documented as of this encounter Plan of Treatment Upcoming Encounters Date Type Department Care Team (Latest Contact Info) Description 10/24/2024 9:35 AM CDT Hospital Encounter [facility] Operating Room [address] [facility] [place] [address] [place] [address] [place] [address] 10/24/2024 9:35 AM CDT - 10/24/2024 11:30 AM CDT Surgery [facility] Operating Room [address] [facility] [place] [address] Jimbo Correa MD [address] [facility] [address] [place], [place] [phone] BILATERAL UPPER BLEPHAROPLASTY Scheduled Procedures Name Priority [...] unspecified provider. Historical Provider Final Res ult documented in this encounter Visit Diagnoses Not on filedocumented in this encounter Care Teams Networking Administrator Relationship Specialty Start Date End Date Alen Juarez MD PCP - General 11/10/16 Alen Juarez MD 11/09/16 Sam Morales MD Consulting Physician Cardiology 05/26/21 Osbaldo June MD [address] [facility] 102 [facility] 102 [place] [address] Cardiology 08/06/24 documented as of this encounter
--- OUTSIDE RECORDS SUMMARY | 2024-09-05 14:45 | XMS_ITS | Clinical Summary ---
Author Organization [facility] Address [facility] [place] [address] Care Team Providers Care Operations Supervisor Chemical Cleaning Name Role Phone Alen Juarez MD Primary Care Provider [phone] Allergies No known active allergies Medications metFORMIN [...] Comments Blood Pressure 136/52 04/08/2019 9:52 AM ASSISTANT CENTER MANAGER Pulse 52 04/08/2019 9:52 AM ASSISTANT CENTER MANAGER Temperature 36.6 C (97.9 F) 04/08/2019 8:23 AM ASSISTANT CENTER MANAGER Respiratory Rate 20 04/08/2019 8:23 AM ASSISTANT CENTER MANAGER Oxygen Saturation 96% 04/08/2019 9:52 AM ASSISTANT CENTER MANAGER Inhaled Oxygen Concentration - - Weight 127 kg (280 lb) 04/03/2019 2:28 PM ASSISTANT CENTER MANAGER Height 185.4 cm (6' 1) 04/03/2019 2:28 PM ASSISTANT CENTER MANAGER Body Mass Index 36.94 04/03/2019 2:28 PM ASSISTANT CENTER MANAGER Plan of Treatment Health Maintenance Due [...] this topic Medical Devices Implanted Type Area Freezer Unloader Device Identifier Shelf Expiration Date Model / Serial / Lot Iol [employer] Zcboo - [id number] Implanted:Qty: 1 on 04/08/2019 by Felipe Slater MD at [facility] Lens Left: Eye [employer] 10/04/2020 [id number] / [id number] / Insurance [place] MEDICARE Care Teams Operations Supervisor Chemical Cleaning Relationship Specialty Start Date End Date Alen Juarez MD [address] [address] PCP - General FAMILY PRACTICE 04/04/19
--- OUTSIDE RECORDS SUMMARY | 2024-09-05 14:45 | XMS_ITS | Continuity of Care Document ---
Author Organization [facility] Address [address] [place] [address] [place] [address] Phone Care Team Providers Care Supplier Engineer Name Role Phone Khoi Dubois Unavailable Unavailable Procedures Procedure Date Office/outpatient Visit, Est Corneal Pachymetry Visual Field Examination(s) Office/outpatient Visit, Est Refraction Advance Directives Directive Yes / No Effective Date File Name No Information Encounters Encounter Description Practice Location Reason(s) For Visit Diagnoses Date Provider Providers Copied on Encounter Office/outpat ient Visit, Est [facility], [address] [place] [address] [address], [place], [place], [id number], tel:[phone] [facility] No Information 9 Roneynasmarisel Dalyhil. [address] [place] [address], [address], [place]. tel:[phone] Referring Provider: Khoi marquez, [address] [place] [address], [address]. tel:[phone] [facility], [address] [place] [address] [address], [place], [place], [id number], tel:[phone] [facility] No Information [address] 9 Roneynasmarisel Dalyhil. [address] [place] [address], [address], [place]. tel:[phone] Referring Provider: Khoi marquez, [address] [facility] [address], [place], [address]. tel:[phone] Office/outpat ient Visit, [facility], [address] [facility] [address], [place], [place], [id number], [place] tel:[phone] [facility] No Information 8 Silvino Westfall. [address] [facility] [address], [place], [address], [place]. tel:[phone] Family History Family Member Type Diagnosis Age At Onset No Information Payers Payer name Insurance type Covered democrat ID Authoriza tion(s) No Information Social History [...]
--- OUTSIDE RECORDS SUMMARY | 2024-09-05 14:45 | XMS_ITS | Clinical Summary ---
Author Organization [facility] Address [address] [place] [address] Care Team Providers Care Ring Cutter Lathe Operator Name Role Phone Alen Juarez MD Primary Care Provider [phone] Alen Juarez MD Unavailable [phone] Sam Morales MD Unavailable [phone] Osbaldo June MD Unavailable Allergies No known active allergies Medications DULoxetine [...] elevated myocardial infarction) (HCC),Coronary artery disease of [place] artery of [place] heart with stable angina pectoris,RODY on CPAP,Preoperat eliezer clearance,Ankl e edema Take 1 tablet (25 mg total) by mouth daily 90 tablet 2 03/21/19 24 Active rosuvastatin (CRESTOR) 10 mg tabletIndicati ons:NSTEMI (non-ST elevated myocardial infarction) (HCC),Coronary artery disease of [place] artery of [place] heart with stable angina pectoris,RODY on CPAP,Preoperat [...] (pediatric) 05/2017 Coronary artery disease invo [place]ving [place] coronary artery of [place] heart without angina pectoris 10/02/2017 Dyslipidemia 10/02/2017 [...] [facility] Cardiology [address] [facility] [address] [place] [phone] Osbaldo June MD Coronary artery disease involving [place] coronary artery of [place] heart without angina pectoris (Primary Dx) 2024 10:20 AM CDT Imaging Exam [facility] Ophthalmology [address] [place] [phone] Ptosis of both eyelids (Primary Dx) 2024 10:00 AM CDT Office Visit [facility] Ophthalmology [address] [place] [phone] Jimbo Correa MD Dermatochalasis of both upper eyelids (Primary Dx); Decreased peripheral vision of both eyes; Senile ectropion of both lower eyelids; Eye irritation; 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 from Last 3 Months Surgical History Surgery Date Site/Laterality Comments GALLBLADDER SURGERY CATARACT EXTRACTION Bilateral CARDIAC STENT PLACEMENT Left ARM SURGERY Fracture (metal plate) LEG SURGERY Left leg fracture (metal siva placement) Medical History Medical History Date Comments Diabetes [...] on file 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 Gender Identity Not on file Sexual Orientation Not on file Obstetrics History Last Filed Vital Signs Vital Sign Reading Time Taken Comments Blood Pressure 118/60 08/12/2024 9:41 AM CDT Pulse 78 08/12/2024 9:41 AM CDT Temperature 36.4 C (97.5 F) 04/07/2023 4:06 PM ELECTRIC ARC WELDER Respiratory Rate 20 04/07/2023 4:06 PM ELECTRIC ARC WELDER Oxygen Saturation 97% 08/12/2024 9:41 AM CDT Inhaled Oxygen Concentration - - Weight 127.5 kg (281 lb) 08/12/2024 9:41 AM CDT Height 188 cm (6' 2) 08/12/2024 9:41 AM CDT Body Mass Index 36.08 08/12/2024 9:41 AM CDT Plan of Treatment Upcoming Encounters Date Type Department Care Team (Latest Contact Info) Description 10/24/2024 9:35 AM CDT Hospital Encounter [facility] Surgery Center Operating Room [address] [facility] [place] [address] Jimbo Correa MD [address] [place] [phone] 10/24/2024 9:35 AM CDT - 10/24/2024 11:30 AM CDT Surgery [facility] Surgery Center Operating Room [address] [facility] [place] [address] Jimbo Correa MD [address] [place] [id number] BILATERAL UPPER BLEPHAROPLASTY Scheduled Procedures Name Priority Associated Diagnoses Date/Ti me BLEPHAROPLASTY UPPER. Decreased peripheral vision, bilateral Dermatochalasis of both upper eyelids Ectropion of both lower eyelids, unspecified ectropion type 10/24/2024 9:35 AM CDT REPAIR ECTROPION. Decreased peripheral vision, bilateral Dermatochalasis of both upper eyelids Ectropion of both lower eyelids, unspecified ectropion type 10/24/2024 9:35 AM CDT Health Maintenance Due Date Last Done Comments Albumin Creatinine Ratio, Urine 1940 Depression Screening 1941 Fall Risk Assessment 1940 Dilated Eye Exam 1941 Foot Exam 1941 DTaP/Tdap/Td Vaccine (1 - Tdap) 1952 Hepatitis B Screening 08/07/1959 Pneumococcal vaccine 65+ (1 of 2 - PCV) 1960 Zoster Vaccine (1 of 2) 08/07/1991 Well Visit 65+ 2006 Hemoglobin A1C 03/14/2018 09/11/2017, 10/15, 02/03/2015 Lipid Panel 09/04/2021 09/04/2020, 08/0 08/2019, 12/07/2018, Additional history exists eGFR 05/12/2023 05/11/2022, 09/04/2020 Covid-19 Vaccine (3 - 2023-2 5 season) 2023 04/25/2020, 04/04/2020 Influenza Vaccine (#1) 2024 9, 11/07/2016, 10/14/2016 Goals Goal Patient Goal Type Associated Problems [...] in superior visual field with elevation bilaterally. us Jimbo Correa MD OPHTH VISUAL FIELD Final [...] LAB BLOOD ORDERABLES Final Res ult [facility] [address] [facility] [place] [address] * (ABNORMAL) Lipid panel (09/04/2020 [...] LAB BLOOD ORDERABLES F inal Result [facility] [address] [facility] [place] [address] * (ABNORMAL) Hemoglobin A1c (09/11/2017 11:58 AM CDT) Hemoglobin A1c % 6.7(H) 4.0 - 5.6 % 09/11/2017 2:30 PM CDT [facility]OR[facility] RES[facility] Comment: ADA 2016 GUIDELINES: Initial Diagnostic Criteria HbA1c Result: Interpretation: <5.7% Normal 5.7-6.4% At risk for diabetes mellitus >=6.5% Consistent with diabetes mellitus Diabetes monitoring Target value (ADA Recommended) <7% 09/11/2017 11:5 8 AM CDT 09/11/2017 1:57 PM CDT us Archie Parker MD LAB BLOOD ORDERABLES Final Result [facility] HISTORICAL RESULTS from Last 3 Months or Most Recently Relevant to Health Maintenance Additional Health Concerns Active Problems Noted Date Diagnosed Date Autogenerated Problem 08/26/2024 Insurance MEDICARE RAILROAD [facility] [employer] [facility] MEDICARE RAILROAD [address] MEDICARE SUPPLEMENT MEDICARE RAILROAD [address] MEDICARE SUPPLEMENT Care Teams Ring Cutter Lathe Operator Relationship Specialty Start Date End Date Alen Juarez MD PCP - General 11/10/16 Alen Juarez MD 11/09/16 Sam Morales MD Consulting Physician Cardiology 05/26/21 Osbaldo June MD [address] [facility] 102 [facility] 102 [place] [address] Cardiology 08/06/24
--- OUTSIDE RECORDS SUMMARY | 2024-09-05 14:46 | XMS_ITS ---
Author Organization [facility] Address [address] [facility] [address] [place], [place] [id number] Care Team Providers Care Lock Corner Machine Operator Name Role Phone POLI TANNER Unavailable [phone] Alen Juarez Unavailable Unavailable REASON FOR VISIT *General care Encounters Encounter Location Date Provider Diagnosis [facility] [address] [facility] [address] [place], [place] [phone] 05/01/2024 POLI TANNER Plan Of Treatment No Information Progress Notes * MEGAN CACERESOB:1940 ( 84 yo M)Acc No.[id number]:05/01/2024 Patient: TON COLEMAN Provider: Farooq Tanner DPM :1940 A ge:83 Y S ex:Male Date:05/01/2024 [address] [id number] Subjective: * Chief Complaints: * 1 . *General care. * Medical History: Objective: * Vitals: Assessment: Plan: * Treatment: * Billing Information: * Visit Code: * Procedure Codes: * Electronic signature of MIKKI VILLANUEVA DPM on 09/05/2024 at 02:45 PM CDT Sign off status: Pending * Provider: Farooq Tanner DPM Date: 05/01/2024 Generated for Printi ng/Faxing/eTransmitting on: 09/05/2024 02:45 PM CDT
== END 2024-09-05 14:33 | disposition home or self-care (01) ==
PROVIDERS: PCP Family Medicine; Visit Provider Physician Assistant Medical
DX: R05.3 Chronic cough (principal)
CPT/HCPCS: 71046

== ENCOUNTER 2024-10-07 15:45 | Outpatient (CLI) | payer MEDICARE, SELFPAY ==
--- OUTSIDE RECORDS SUMMARY | 2008-08-13 08:30 | XMS_ITS | Continuity of Care Document ---
Author Organization [facility] Address [address] [place] [address] [place] [address] Phone Care Team Providers Care Clinical Partner Name Role Phone Khoi Dubois Unavailable Unavailable Procedures Procedure Date Office/outpatient Visit, Est Corneal Pachymetry Visual Field Examination(s) Office/outpatient Visit, Est Refraction Advance Directives Directive Yes / No Effective Date File Name No Information Encounters Encounter Description Practice Location Reason(s) For Visit Diagnoses Date Provider Providers Copied on Encounter Office/outpat ient Visit, Est [facility], [address] [place] [address] [address], [place], [place], [id number], tel:[phone] [facility] No Information 9 Roneynasmarisel Dalyhil. [address] [place] [address], [address], [place]. tel:[phone] Referring Provider: Khoi marquez, [address] [place] [address], [address]. tel:[phone] [facility], [address] [place] [address] [address], [place], [place], [id number], tel:[phone] [facility] No Information 200 9 Roneynasmairsel Dalyhil. [address] [place] [address], [address], [place]. tel:[phone] Referring Provider: Khoi marquez, [address] [facility] [address], [address]. tel:[phone] Office/outpat ient Visit, [facility] Eye [facility], [address] [place] [address] [facility] [address], [place], [place], [id number], [place] tel:[phone] [facility] No Information 8 Silvino Westfall. [address] [facility] [address], [place], [address], [place]. tel:[phone] Family History Family Member Type Diagnosis Age At Onset No Information Payers Payer name Insurance type Covered alliance party ID Authoriza tion(s) No Information Social [...]
--- OUTSIDE RECORDS SUMMARY | 2023-08-16 08:10 | XMS_ITS ---
Author Organization [facility] Address [address] [facility] [address] [place], [place] [phone] Care Team Providers Care Window Assembler Name Role Phone POLI TANNER Unavailable [phone] Alen Juarez Unavailable Unavailable REASON FOR VISIT *General care Encounters Encounter Location Date Provider Diagnosis [facility] [address] [facility] [address] [place], [place] [phone] 08/16/2023 POLI TANNER Plan Of Treatment No Information Progress Notes * MEGAN CACERESOB:1940 ( 84 yo M)Acc No.[id number]:08/16/2023 Patient: TON COLEMAN Provider: Farooq Tanner DPM :1940 A ge:83 Y S ex:Male Date:08/16/2023 [address] [id number] Subjective: * Chief Complaints: * 1 . *General care. * Medical History: Objective: * Vitals: Assessment: Plan: * Treatment: * Billing Information: * Visit Code: * Procedure Codes: * Electronic signature of MIKKI VILLANUEVA DPM on 10/07/2024 at 03:49 PM CDT Sign off status: Pending * Provider: Farooq Tanner DPM Date: 08/16/2023 Generated for Printi ng/Faxing/eTransmitting on: 10/07/2024 03:49 PM CDT
--- OUTSIDE RECORDS SUMMARY | 2024-05-01 05:20 | XMS_ITS ---
Author Organization [facility] Address [address] [facility] [address] [place], [place] [id number] Care Team Providers Care Toolroom Keeper Name Role Phone POLI TANNER Unavailable [phone] Alen Juarez Unavailable Unavailable REASON FOR VISIT *General care Encounters Encounter Location Date Provider Diagnosis [facility] [address] [facility] [address] [place], [place] [id number] 05/01/2024 POLI TANNER Plan Of Treatment No Information Progress Notes * MEGAN CACERESOB:1940 ( 84 yo M)Acc No.[id number]:05/01/2024 Patient: TON COLEMAN Provider: Farooq Tanner DPM :1940 A ge:83 Y S ex:Male Date:05/01/2024 [facility] [id number] Subjective: * Chief Complaints: * 1 . *General care. * Medical History: Objective: * Vitals: Assessment: Plan: * Treatment: * Billing Information: * Visit Code: * Procedure Codes: * Electronic signature of MIKKI VILLANUEVA DPM on 10/07/2024 at 03:50 PM CDT Sign off status: Pending * Provider: Farooq Tanner DPM Date: 05/01/2024 Generated for Printi ng/Faxing/eTransmitting on: 0 10/07/2024 03:50 PM CDT
--- OUTSIDE RECORDS SUMMARY | 2024-10-07 15:49 | XMS_ITS | Encounter Summary ---
Author Organization [facility] Healthcare Address [address] [place] [address] Care Team Providers Care Coal Gasification Technician Name Role Phone Alen Juarez MD Primary Care Provider [phone] Alen Juarez MD Unavailable [phone] Sam Morales MD Unavailable Osbaldo June MD Unavailable Encounter Details Date Type Department Care Team (Late st Contact Info) Description 10/07/2024 Telephone [facility] Medical Group Cardiology [address] [place] [address] Osbaldo June MD [address] [facility] [address] [place] [address] Social History Tobacco Use Types Packs/Day Years Used Date Smoking Tobacco: Never Smokeless Tobacco: Never Alcohol Use Standard Drinks/Week Comments Yes 1 [...] on file 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 Per- Dr. June pt needs to come in for an office visit with him before he clears Mr. Morse for surgery. I called pt and l/m asking him maricruz/b and schedule an appt. documented in this encounter Plan of Treatment Upcoming Encounters Date Type Department Care Team (Latest Contact Info) Description 10/24/2024 9:35 AM CDT Hospital Encounter [facility] Operating Room [address] [place] [address] Jimbo Correa MD [address] [place] [phone] 10/24/2024 9:35 AM CDT - 10/24/2024 11:30 AM CDT Surgery [facility] Operating Room [address] [place] [address] Jimbo Correa MD [address] [place] [address] BILATERAL UPPER BLEPHAROPLASTY Scheduled Procedures Name Priority Associated Diagnoses Date/Ti me BLEPHAROPLASTY UPPER. Decreased peripheral vision, bilateral Dermatochalasis of both upper eyelids Ectropion of both lower eyelids, unspecified ectropion type 10/24/2024 9:35 AM CDT REPAIR ECTROPION. Decreased peripheral vision, bilateral Dermatochalasis of both upper eyelids Ectropion of both lower eyelids, unspecified ectropion type 10/24/2024 9:35 AM CDT documented as of this encounter Visit Diagnoses Not on filedocumented in this encounter Care Teams Coal Gasification Technician Relationship Specialty Start Date End Date Alen Juarez MD PCP - General 11/10/16 Alen Juarez MD 11/09/16 Sam Morales MD Consulting Physician Cardiology 05/26/21 Osbaldo June MD [address] [facility] [address] [address] Cardiology 08/06/24 documented as of this encounter
--- OUTSIDE RECORDS SUMMARY | 2024-10-07 15:50 | XMS_ITS | Clinical Summary ---
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 Gender Identity Not on file Sexual Orientation Not on file Plan of Treatment Health Maintenance Due Date Last Done Comments Hepatitis C Virus (HCV) Screening 1940 TdaP Immunization 1940 Pneumococcal Immunization (5 0+ years) (1 of 1 - PCV) 08/07/1991 Zoster Immunization (1 of 2) 08/07/1991 Respiratory Syncytial Virus (RSV) Immunization (Adult) (1 - 1-dose 75+ series) 2016 SARS-COV-2 Immunization ( - 2023- season) 2023 Influenza Immunization (#1) 2024 092 07/2019, 11/07/2018 Hepatitis B Immunization Aged Out No longer eligible based on patient's age to complete this topic Human Papillomavirus (HPV) Immunization Aged Out No longer eligible b ased on patient's age to complete this topic Meningococcal Immunization (ACWY) Aged Out No longer eligible b ased on patient's age to complete this topic Rotavirus Immunization Aged Out No lo nger eligible based on patient's age to complete this topic
--- OUTSIDE RECORDS SUMMARY | 2024-10-07 15:50 | XMS_ITS | Encounter Summary ---
Author Organization [facility] Care Team Providers Care Asbestos Cloth Inspector Name Role Phone Alen Juarez MD Primary Care Provider [phone] Alen Juarez MD Unavailable [phone] Sam Morales MD Unavailable [phone] Osbaldo June MD Unavailable Encounter Details Date Type Department Care Team (Latest Contact Info) Description 10/13/2017 Orders Only [facility]INCONV Provider, MD Edenilson [address] [place] [address] Social History Tobacco Use Types Packs/Day Years Used Date Smoking Tobacco: Never Assessed Sex and Gender Information Value Date Recorded Sex Assigned at Not on file 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 Gender Identity Not on file Sexual Orientation Not on file documented as of this encounter Plan of Treatment Upcoming Encounters Date Type Department Care Team (Latest Contact Info) Description 10/24/2024 9:35 AM CDT Hospital Encounter [facility] Surgery Center Operating Room [address] [facility] [place] [address] [place] [address] [place] [address] 10/24/2024 9:35 AM CDT - 10/24/2024 11:30 AM CDT Surgery [facility] Surgery Center Operating Room [address] [facility] [place] [address] Jimbo Correa MD [address] [facility] 6 [place], [place] [phone] BILATERAL UPPER BLEPHAROPLASTY Scheduled Procedures Name Priority [...] on filedocumented in this encounter Care Teams Asbestos Cloth Inspector Relationship Specialty Start Date End Date Alen Juarez MD PCP - General 11/10/16 Alen Juarez MD 11/09/16 Sam Morales MD Consulting Physician Cardiology 05/26/21 Osbaldo June MD [address] [facility] 102 [facility] 102 [place] [address] Cardiology 08/06/24 documented as of this encounter
--- OUTSIDE RECORDS SUMMARY | 2024-10-07 15:50 | XMS_ITS | Patient Health Record ---
Author Organization [facility] Address [address] [place], [place] [phone] Care Team Providers Care Chemical Milling Processor Name Role Phone POLI PEREZ Unavailable [phone] Alen Juarez Unavailable Unavailable Allergies No Known [...] Coverage End Date Medicare Soniya Abbott GBA [id number] [address] [address] [place], [place] [id number] TON CACERES Self - patient is the insured [facility] ([facility]) ATTN CLAIMS [address] [place] [address] [id number] TON CACERES Self - patient is the insured Medical (General) History Medical History History ICD Code acid reflux neuropathy Leg/Feet cramps Steroid Treatment Arthritis Cancer Gout Sleep apnea Diabetic Blood clots Surgical History Surgery Date(Month/Year) Gall Bladder
--- OUTSIDE RECORDS SUMMARY | 2024-10-07 15:50 | XMS_ITS | Encounter Summary ---
Author Organization [facility] Facility Care Team Providers Care Medical Insurance Clerk Name Role Phone Alen Juarez MD Primary Care Provider [phone] Unknown, Notinfile Primary Care Provider Unavail able Alen Juarez MD Primary Care Provider [phone] Alen Juarez MD Unavailable [phone] Sam Morales MD Unavailable [phone] Osbaldo June MD Unavailable Encounter Details Date Type Department Care Team (Latest Contact Info) Description 11/30/2015 Orders Only [facility]INCON[facility] ProviderEdenilson MD [address] [place] [address] Social History Tobacco Use Types Packs/Day Years Used Date Smoking Tobacco: Never Assessed Sex and Gender Information Value Date Recorded Sex Assigned at Not on file 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 Gender Identity Not on file Sexual Orientation Not on file documented as of this encounter Plan of Treatment Upcoming Encounters Date Type Department Care Team (Latest Contact Info) Description 10/24/2024 9:35 AM CDT Hospital Encounter [facility] Surgery Center Operating Room [address] [facility] [place] [address] Jimbo Correa MD [address] [address] 10/24/2024 9:35 AM CDT - 10/24/2024 11:30 AM CDT Surgery [facility] Surgery Center Operating Room [address] [facility] [place] [phone] Jimbo Correa MD [address] [facility] 6 [place] [address] BILATERAL UPPER BLEPHAROPLASTY Scheduled Procedures Name Priority [...] on filedocumented in this encounter Care Teams Medical Insurance Clerk Relationship Specialty Start Date End Date Alen Juarez MD PCP - General 11/13/13 11/08/16 Unknown, Notinfile PCP - General 11/09/16 11/09/16 Alen Juarez MD PCP - General 11/10/16 Alen Juarez MD 11/09/16 Sam Morales MD Consulting Physician Cardiology 05/26/21 Osbaldo June MD [address] [facility] 102 [facility] 102 [place] [address] Cardiology 08/06/24 documented as of this encounter
--- OUTSIDE RECORDS SUMMARY | 2024-10-07 15:50 | XMS_ITS | Clinical Summary ---
Author Organization [facility] Address [address] [place] [id number] Care Team Providers Care Auto Garage Attendant Name Role Phone Alen Juarez MD Primary Care Provider [phone] Alen Juarez MD Unavailable [phone] Sam Morales MD Unavailable [phone] Osbaldo June MD Unavailable Allergies No known active allergies Medications DULoxetine (CYMBALTA) 60 mg capsule Take 1 capsule (60 mg total) by mouth daily 3 10/31/2017 Active metoprolol XL (TOPROL-XL) 50 mg 24 hr tablet Take 1 tablet (50 mg total) by mouth daily 5 09/12/2017 Active aspirin 81 mg enteric coated tablet 1 tablet (81 mg total) daily Active blood glucose diagnostic strip USE TO CHECK BLOOD SUGAR ONCE DAILY DIRECTED. 07/14/2020 Active Jardiance 10 mg tablet Take 1 tablet (10 mg total) by mouth daily 05/03/2021 Active spironolactone (ALDACTONE) 25 mg tabletIndicatio ns:NSTEMI (non-ST elevated myocardial infarction) (HCC),Coronary artery disease of [place] artery of [place] heart with stable angina pectoris,RODY on CPAP,Preoperati ve clearance,Ankle edema Take 1 tablet (25 mg total) by mouth daily 90 tablet 2 03/21/2023 Active rosuvastatin (CRESTOR) 10 mg tabletIndicatio ns:NSTEMI (non-ST elevated myocardial infarction) ([facility]),Coronary artery disease of [place] artery of [place] heart with stable angina pectoris,RODY on CPAP,Preoperati ve clearance,Ankle edema Take 1 tablet (10 mg total) by mouth daily 90 tablet 1 05/21/2024 Active acetaminophen (TYLENOL) 500 mg tablet Take by mouth 2023 Active fluticasone propionate (FLONASE) 50 mcg/actuation nasal spray SPRAY 2 SPRAYS INTO EACH NOSTRIL ONCE A DAY 06/10/2024 Active tamsulosin (FLOMAX) 0.4 mg extended release capsule Take 1 capsule (0.4 mg total) by mouth 05/19/2024 Active Ozempic 2 mg/dose (8 mg/3 mL) pen injector injection Inject 2 mg under the skin once a week 07/20/2024 Active Active Problems Problem Noted Date Diagnosed Date Decreased peripheral vision, bilateral Dermatochalasis of both upper eyelids 08/21/2024 Ectropion of both lower eyelids 08/21/2024 Diabetes mellitus type II, non insulin dependent 07/21/2023 Hypertension 07/21/2023 History of percutaneous coronary intervention 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 11/16/2017 Obstructive sleep apnea (adult) (pediatric) 05/2017 Coronary artery disease invo lving [place] coronary artery of [place] heart without angina pectoris 10/02/2017 Dyslipidemia 10/02/2017 Closed fracture of proximal end of humerus 11/09 Pain in shoulder 11/07/2016 Sensorineural hearing loss of high frequency Tinnitus 11/30/2015 Resolved Problems Problem Noted Date Diagnosed Date Resolved Date NSTEMI (non-ST elevated myoc ardial infarction) 10/02/2017 01/13/2023 Encounters Date Type Department Care Team Description 10/07/2024 Telephone [facility] Medical [facility] Cardiology [address] [place] [address] Osbaldo June MD 08/12/2024 9:45 AM CDT Office Visit [facility] Cardiology [address] [place] [address] Osbaldo June MD Coronary artery disease involving [place] coronary artery of [place] heart without angina pectoris (Primary Dx) 2024 10:20 AM CDT Imaging Exam [facility] Medicine Ophthalmology [address] [phone] Ptosis of both eyelids (Primary Dx) 2024 10:00 AM CDT Office Visit [facility] Medicine Ophthalmology [address] [phone] Jimbo Correa MD Dermatochalasis of both upper [...] on file 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 Gender Identity Not on file Sexual Orientation Not on file Obstetrics History Last Filed Vital Signs Vital Sign Reading Time Taken Comments Blood Pressure 118/60 08/12/2024 9:41 AM CDT Pulse 78 08/12/2024 9:41 AM CDT Temperature 36.4 C (97.5 F) 04/07/2023 4:06 PM WHEEL AND AXLE INSPECTOR Respiratory Rate 20 04/07/2023 4:06 PM WHEEL AND AXLE INSPECTOR Oxygen Saturation 97% 08/12/2024 9:41 AM CDT [...] Center Surgery Center Operating Room [address] [facility] [place] [address] Jimbo Correa MD [address] [place] [phone] 10/24/2024 9:35 AM CDT - 10/24/2024 11:30 AM CDT Surgery [facility] [place] Operating Room [address] [facility] [place] [address] Jimbo Correa MD [address] [place] [address] BILATERAL UPPER BLEPHAROPLASTY Scheduled Procedures Name [...] eGFR 05/12/2023 05/11/2022, 09/04/2020 Covid-19 Vaccine (3 2023-2 5 season) 2023 04/25/2020, 04/04/2020 Influenza Vaccine (#1) 2024 9, 11/07/2016, 10/14/2016 Procedures Procedure Name Priority Date/Time [...] with elevation bilaterally. us Jimbo Correa MD OPH VISUAL FIELD Final Result * eGFR (05/11/2022 [...] DO LAB BLOOD ORDERABLES Final Res ult ROSALINAMARIE [address] [facility] Department [place] [address] * (ABNORMAL) Lipid panel (09/04/2020 [...] ORDERABLES F inal Result Performing Organization Address City/[facility] Co de Phone Number GEMA [address] [facility] Department [place] [address] * (ABNORMAL) Hemoglobin A1c (09/11/2017 11:58 AM CDT) Hemoglobin A1c % 6.7(H) 4.0 - 5.6 % 09/11/2017 2:30 PM CDT [facility] [employer] HISTORICAL RESULTS Comment: ADA 2016 GUIDELINES: Initial Diagnostic Criteria HbA1c Result: Interpretation: <5.7% Normal 5.7-6.4% At risk for diabetes mellitus >=6.5% Consistent with diabetes mellitus Diabetes monitoring Target value (ADA Recommended) <7% 09/11/2017 11:5 8 AM CDT 09/11/2017 1:57 PM CDT us Archie Parker MD LAB BLOOD ORDERABLES Final Result [facility] HISTORICAL RESULTS from Last 3 Months or Most Recently Relevant to Health Maintenance Insurance MEDICARE RAILROAD [facility]IC[facility] SUPPLEMENT MEDICARE RAILROAD [facility] MEDICARE SUPPLEMENT Care Teams Auto Garage Attendant Relationship Specialty Start Date End Date Alen Juarez MD PCP - General 11/10/16 Alen Juarez MD 11/09/16 Sam Morales MD Consulting Physician Cardiology 05/26/21 Osbaldo June MD [address] [place] [address] Cardiology 08/06/24
--- OUTSIDE RECORDS SUMMARY | 2024-10-07 15:50 | XMS_ITS | Clinical Summary ---
Author Organization [facility] Address [facility] [place] [address] Care Team Providers Care Billing Collections Specialist Name Role Phone Alen Juarez MD Primary Care Provider [phone] Allergies No known active allergies Medications metFORMIN [...] Comments Blood Pressure 136/52 04/08/2019 9:52 AM MASTER BARBER Pulse 52 04/08/2019 9:52 AM MASTER BARBER Temperature 36.6 C (97.9 F) 04/08/2019 8:23 AM MASTER BARBER Respiratory Rate 20 04/08/2019 8:23 AM MASTER BARBER Oxygen Saturation 96% 04/08/2019 9:52 AM MASTER BARBER Inhaled Oxygen Concentration - - Weight 127 kg (280 lb) 04/03/2019 2:28 PM MASTER BARBER Height 185.4 cm (6' 1) 04/03/2019 2:28 PM MASTER BARBER Body Mass Index 36.94 04/03/2019 2:28 PM MASTER BARBER Plan of Treatment Health Maintenance Due Date [...] this topic Medical Devices Implanted Type Area Farm Reporter Device Identifier Shelf Expiration Date Model / Serial / Lot Iol [place] [employer] Zcboo - [id number] Implanted:Qty: 1 on 04/08/2019 by Felipe Slater MD at [facility] Lens Left: Eye [employer] 10/04/2020 [id number] / [id number] / Insurance [place] MEDICARE Care Teams Billing Collections Specialist Relationship Specialty Start Date End Date Alen Juarez MD [address] [place] [address] PCP - General FAMILY PRACTICE 04/04/19
--- NOTE | 2024-10-07 16:03 | ECG_ITS ---
Test Date: 2024-10-07 16:26:17 Measurements Intervals [place] Rate: 66 P: 40 [place]: 278 QRS: -28 QRSD: 117 T: 40 QT: 378 QTc: 398 Interpretive Statements SINUS RHYTHM WITH FIRST DEGREE AV BLOCK INTRAVENTRICULAR CONDUCTION DELAY BORDERLINE ECG Compared to ECG 07/14/2023 13:35:29 Intraventricular conduction delay now present Electronically Signed On 10-07-2024 19:45:35 CDT by Dhruv Patterson D.O.
[2024-10-07 16:53] LABS: Hematocrit 39.2 % (42.0-52.0); Hemoglobin 12.4 g/dL (14.0-18.0); Immature Granulocyte Percent A 0.5 % (0-0.5); Lymphocytes Absolute Auto 1.52 K/mm3 (0.9-3.2); Mean Corpuscular HGB Conc 31.6 g/dl (32-36); Mean Corpuscular Hemoglobin 30.1 pg (26-34); Mean Corpuscular Volume 95.1 fl (80-100); Nucleated Red Blood Cells Absolute Auto 0.000 K/mm3 (0.0-0.012); Nucleated Red Blood Cells Perc 0.0 % (0.0-0.2); Platelet Count Result 197 k/mm3 (150-375); Red Blood Count 4.12 M/mm3 (4.6-6.20); White Blood Count 8.1 K/mm3 (4.5-10.0)
[2024-10-07 16:56] LABS: Add Urine Microscopic? NO; Appearance Urine Clear (Clear); Glucose Urine UA Negative (Negative); Leukocyte Esterase Ur Negative LEU/UL (Negative); Nitrate Urine Negative (Negative); Specific Grav Ur 1.014 (1.001-1.035)
[2024-10-07 17:13] LABS: Albumin Level 4.2 g/dL (3.5-5.1)
[2024-10-07 17:15] LABS: Anion Gap 8 mmol/L (4-12); Blood Urea Nitrogen 25 mg/dL (9-20); Calcium 9.6 mg/dL (8.4-10.2); Carbon Dioxide 25 mmol/L (22-30); Chloride 103 mmol/L (98-107); Estimated Glomerular Filt Rate 39; Glucose 162 mg/dL (65-110); Potassium 5.6 mmol/L (3.4-5.0); Sodium 136 mmol/L (137-145)
[2024-10-07 17:18] LABS: Total Protein Urine Random 8 mg/dL; Ur Ttl Prot Creatinine Ratio 0.06 mg/mg (0-0.20)
[2024-10-07 17:29] LABS: Parathyroid Intact 69.0 pg/mL (14.5-75.2)
== END 2024-10-07 15:46 | disposition home or self-care (01) ==
PROVIDERS: Internal Medicine Nephrology; PCP Family Medicine; Visit Provider Nurse Practitioner Family
DX: E87.5 Hyperkalemia (principal); R53.83 Other fatigue; E11.22 Type 2 diabetes mellitus with diabetic chronic kidney disease; I12.9 Hypertensive chronic kidney disease with stage 1 through stage 4 chronic kidney disease, or unspecified chronic kidney disease; N18.32 Chronic kidney disease, stage 3b; N25.81 Secondary hyperparathyroidism of renal origin; E55.9 Vitamin D deficiency, unspecified
CPT/HCPCS: 36415; 80048; 81003; 82040; 82306; 82570; 83970; 84100; 84156; 85025; 93005

== ENCOUNTER 2024-10-09 11:48 | Outpatient (CLI) | payer MEDICARE, SELFPAY ==
--- OUTSIDE RECORDS SUMMARY | 2008-08-13 08:30 | XMS_ITS | Continuity of Care Document ---
Author Organization [facility] Address [address] [place] [address] [place] [address] Phone Care Team Providers Care Environmental Intern Name Role Phone Khoi Dubois Unavailable Unavailable Procedures Procedure Date Office/outpatient Visit, Est Corneal Pachymetry Visual Field Examination(s) Office/outpatient Visit, Est Refraction Advance Directives Directive Yes / No Effective Date File Name No Information Encounters Encounter Description Practice Location Reason(s) For Visit Diagnoses Date Provider Providers Copied on Encounter Office/outpat ient Visit, Est [facility], [address] [place] [address] [address], [place], [place], [id number], tel:[phone] [facility] No Information 9 Roneynasmarisel Dalyhil. [address] [place] [address], [address], [place]. tel:[phone] Referring Provider: Khoi marquez, [address] [place] [address], [address]. tel:[phone] [facility], [address] [place] [address] [address], [place], [place], [id number], tel:[phone] [facility] No Information 200 9 Roneynasmarisel Dalyhil. [address] [place] [address], [address], [place]. tel:[phone] Referring Provider: hKoi marquez, [address] [facility] [address], [address]. tel:[phone] Office/outpat ient Visit, [facility] Eye [facility], [address] [place] [address] [facility] [address], [place], [place], [id number], [place] tel:[phone] [facility] No Information 8 Silvino Westfall. [address] [facility] [address], [address], [place]. tel:[phone] Family History Family Member Type Diagnosis Age At Onset No Information Payers Payer name Insurance type Covered libertarian ID Authoriza tion(s) No Information Social History [...]
--- NOTE | ~2024-10-09 | MR_ITS ---
EXAMINATION: MR brain IAC wo/w con DATE: 10/09/2024 13:01 INDICATION: Unspecified visual loss TECHNIQUE: Magnetic resonance imaging (MRI) of the brain and brainstem was performed without and with 20 mL Multihance intravenous contrast. Sequences included sagittal and axial T1-weighted FSE, axial diffusion-weighted FS EPI, axial 3D SWAN, axial T2-weighted FLAIR Propeller, axial T2-weighted Propeller, small ztnaa-ha-nfze coronal FIESTA, small xohnz-hn-dzga coronal T1-weighted FSE, and small venwo-oi-eyug axial T1-weighted SPGR. Postcontrast sequences included axial T1-weighted FSE, small jtsbv-iw-levl coronal T1-weighted FSE, and small wyani-cg-ftjn axial T1-weighted SPGR. Apparent diffusion coefficient (ADC) maps were created. COMPARISON: None. FINDINGS: There are no areas of restricted diffusion to suggest acute infarction. 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 No intracranial hemorrhage or abnormal intracranial mass lesion. Minimal nonspecific increased T2-weighted signal intensity in the cerebral white matter, predominantly involving the deep and periventricular white matter. There are no intraparenchymal signal abnormalities seen on the other pulse sequences. The ventricles are symmetric and normal in size. There are no abnormal extra-axial fluid collections. Flow voids are seen in the cerebral arteries on the T2- weighted sequences consistent with their expected patency. Mucosal thickening throughout the paranasal sinuses was performed in the left frontal, ethmoid and maxillary sinuses which are fluid-filled suggestive of acute sinusitis. Pituitary appears unremarkable. The basal cisterns including the suprasellar cistern are patent. Optic nerves are unremarkable with no thickening, increased fluid signal or enhancement. Normal seventh/eighth cranial nerve complexes. No cerebellopontine angles masses. No evidence of mastoid or middle ear fluid. Changes of bilateral intraocular lens replacement. There are no areas of abnormal enhancement on the post contrast images. IMPRESSION: 1. 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 No acute intracranial process or abnormally enhancing brain lesions. 2. Sinus disease with moderate mucosal thickening and mucous filling the left frontal and maxillary sinuses and multiple left ethmoid air cells suspicious for acute sinusitis. Reviewed, dictated and finalized at location A. IMPRESSION: 1. 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 No acute intracranial process or abnormally enhancing brain lesions. 2. Sinus disease with moderate mucosal thickening and mucous filling the left f rontal and maxillary sinuses and multiple left ethmoid air cells suspicious for acute sinusitis.
--- OUTSIDE RECORDS SUMMARY | 2024-10-09 11:57 | XMS_ITS | Clinical Summary ---
Author Organization [facility] Address [facility] [place] [address] Care Team Providers Care Private Household Worker Name Role Phone Alen Juarez MD Primary Care Provider [phone] Allergies No known active allergies Medications metFORMIN [...] Comments Blood Pressure 136/52 04/08/2019 9:52 AM ELECTRICAL TESTER BATTERY Pulse 52 04/08/2019 9:52 AM ELECTRICAL TESTER BATTERY Temperature 36.6 C (97.9 F) 04/08/2019 8:23 AM ELECTRICAL TESTER BATTERY Respiratory Rate 20 04/08/2019 8:23 AM ELECTRICAL TESTER BATTERY Oxygen Saturation 96% 04/08/2019 9:52 AM ELECTRICAL TESTER BATTERY Inhaled Oxygen Concentration - - Weight 127 kg (280 lb) 04/03/2019 2:28 PM ELECTRICAL TESTER BATTERY Height 185.4 cm (6' 1) 04/03/2019 2:28 PM ELECTRICAL TESTER BATTERY Body Mass Index 36.94 04/03/2019 2:28 PM ELECTRICAL TESTER BATTERY Plan of Treatment Health Maintenance Due Date [...] this topic Medical Devices Implanted Type Area Manager Of Operations Device Identifier Shelf Expiration Date Model / Serial / Lot Iol [place] [employer] Zcboo - [id number] Implanted:Qty: 1 on 04/08/2019 by Felipe Slater MD at [facility] Lens Left: Eye [employer] 10/04/2020 [id number] / [id number] / Insurance [place] MEDICARE Care Teams Private Household Worker Relationship Specialty Start Date End Date Alen Juarez MD [address] [address] PCP - General FAMILY PRACTICE 04/04/19
--- OUTSIDE RECORDS SUMMARY | 2024-10-09 11:57 | XMS_ITS | Encounter Summary ---
Author Organization [facility] Care Team Providers Care Finger Buff Sewer Name Role Phone Alen Juarez MD Primary Care Provider [phone] Unknown, Notinfile Primary Care Provider Unavail able Alen Juarez MD Primary Care Provider [phone] Alen Juarez MD Unavailable [phone] Sam Morales MD Unavailable [phone] Osbaldo June MD Unavailable Encounter Details Date Type Department Care Team (Latest Contact Info) Description 11/30/2015 Orders Only [facility] CLINCONV ProviderEdenilson MD [address] [place] [address] Social History Tobacco Use Types Packs/Day Years Used Date Smoking Tobacco: Never Assessed Sex and Gender Information Value Date Recorded Sex Assigned at Not on file Legal Sex Male 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 Gender Identity Not on file Sexual Orientation Not on file documented as of this encounter Plan of Treatment Upcoming Encounters Date Type Department Care Team (Latest Contact Info) Description 10/24/2024 9:35 AM CDT Hospital Encounter [facility] Operating Room [address] [facility] [place] [address] Jimbo Correa MD [address] [address] 10/24/2024 9:35 AM CDT - 10/24/2024 11:30 AM CDT Surgery [facility] Operating Room [address] [facility] [place] [phone] Jimbo Correa MD [address] [facility] [address] [place] [address] BILATERAL UPPER BLEPHAROPLASTY Scheduled Procedures Name Priority [...] on filedocumented in this encounter Care Teams Finger Buff Sewer Relationship Specialty Start Date End Date Alen Juarez MD PCP - General 11/13/13 11/08/16 Unknown, Notinfile PCP - General 11/09/16 11/09/16 Alen Juarez MD PCP - General 11/10/16 Alen Juarez MD 11/09/16 Sam Morales MD Consulting Physician Cardiology 05/26/21 Osbaldo June MD [address] [facility] [address] [facility] [address] [place] [address] Cardiology 08/06/24 documented as of this encounter
--- OUTSIDE RECORDS SUMMARY | 2024-10-09 11:57 | XMS_ITS | Clinical Summary ---
Author Organization [facility] Address [address] [place] [phone] Care Team Providers Care Watchmaker Apprentice Name Role Phone Alen Juarez MD Primary Care Provider [phone] Alen Juarez MD Unavailable [phone] Sam Morales MD Unavailable [phone] Osbaldo June MD Unavailable Allergies No known [...] elevated myocardial infarction) (HCC),Coronary artery disease of [place] artery of [place] heart with stable angina pectoris,RODY on CPAP,Preoperati ve clearance,Ankle edema Take 1 tablet (25 mg total) by mouth daily 90 tablet 2 03/21/2023 Active rosuvastatin (CRESTOR) 10 mg tabletIndicatio ns:NSTEMI (non-ST elevated myocardial infarction) ([facility]),Coronary artery disease of [place] artery of [place] heart with stable angina pectoris,RODY on CPAP,Preoperati [...] (pediatric) 05/2017 Coronary artery disease invo lving [place] coronary artery of [place] heart without angina pectoris 10/02/2017 Dyslipidemia 10/02/2017 Closed fracture of proximal end of humerus 11/09 Pain in shoulder 11/07/2016 Sensorineural hearing loss of high frequency Tinnitus 11/30/2015 Resolved Problems Problem Noted Date Diagnosed Date Resolved Date NSTEMI (non-ST elevated myoc ardial infarction) 10/02/2017 01/13/2023 Encounters Date Type Department Care Team Description 10/07/2024 Telephone [facility] Medical [facility] Cardiology [address] [place] [address] Osbaldo June MD 08/12/2024 9:45 AM CDT Office Visit [facility] Cardiology [address] [place] [address] Osbaldo June MD Coronary artery disease involving [place] coronary artery of [place] heart without angina pectoris (Primary Dx) 2024 10:20 AM CDT Imaging Exam [facility] Medicine Ophthalmology [address] [phone] Ptosis of both eyelids (Primary Dx) 2024 10:00 AM CDT Office Visit [facility] Medicine Ophthalmology [address] [phone] Jimbo Correa MD Dermatochalasis of both upper [...] on file Legal Sex Male 5:23 AM YARN TWISTER Gender Identity Not on file Sexual Orientation Not on file Obstetrics History Last Filed Vital Signs Vital Sign Reading Time Taken Comments Blood Pressure 118/60 08/12/2024 9:41 AM CDT Pulse 78 08/12/2024 9:41 AM CDT Temperature 36.4 C (97.5 F) 04/07/2023 4:06 PM YARN TWISTER Respiratory Rate 20 04/07/2023 4:06 PM YARN TWISTER Oxygen Saturation 97% 08/12/2024 9:41 AM CDT Inhaled Oxygen Concentration - - Weight 127.5 kg (281 lb) 08/12/2024 9:41 AM CDT Height 188 cm (6' 2) 08/12/2024 9:41 AM CDT Body Mass Index 36.08 08/12/2024 9:41 AM CDT Plan of Treatment Upcoming Encounters Date Type Department Care Team (Latest Contact Info) Description 10/24/2024 9:35 AM CDT Hospital Encounter [facility] Operating Room [address] [facility] [place] [address] Jimbo Correa MD [address] [place] [phone] 10/24/2024 9:35 AM CDT - 10/24/2024 11:30 AM CDT Surgery [facility] Surgery [place] Operating Room [address] [facility] [place] [address] Jimbo Correa MD [address] [place] [address] BILATERAL UPPER BLEPHAROPLASTY Scheduled Procedures Name [...] LAB BLOOD ORDERABLES Final Res ult ROSALINAMARIE [address] [facility] Department [place] [address] * (ABNORMAL) Lipid panel (09/04/2020 [...] ORDERABLES F inal Result Performing Organization Address City/[facility] Co de Phone Number GEMA [address] [facility] Department [place] [address] * (ABNORMAL) Hemoglobin A1c (09/11/2017 11:58 AM CDT) Hemoglobin A1c % 6.7(H) 4.0 - 5.6 % 09/11/2017 2:30 PM CDT [facility] [employer] HISTORICAL RESULTS Comment: ADA 2016 GUIDELINES: Initial Diagnostic Criteria HbA1c Result: Interpretation: <5.7% Normal 5.7-6.4% At risk for diabetes mellitus >=6.5% Consistent with diabetes mellitus Diabetes monitoring Target value (ADA Recommended) <7% 09/11/2017 11:5 8 AM CDT 09/11/2017 1:57 PM CDT us Archie Parker MD LAB BLOOD ORDERABLES Final Result [facility] HISTORICAL RESULTS from Last 3 Months or Most Recently Relevant to Health Maintenance Insurance MEDICARE [facility] MEDIC[facility] SUPPLEMENT MEDICARE RAILROAD [facility] MEDICARE SUPPLEMENT Care Teams Watchmaker Apprentice Relationship Specialty Start Date End Date Alen Juarez MD PCP - General 11/10/16 Alen Juarez MD 11/09/16 Sam Morales MD Consulting Physician Cardiology 05/26/21 Osbaldo June MD [address] [place] [address] Cardiology 08/06/24
--- OUTSIDE RECORDS SUMMARY | 2024-10-09 11:57 | XMS_ITS | Clinical Summary ---
Author Organization [facility] Address [address] [place] [phone] Care Team Providers Care Pin Inserter Regulator Name Role Phone Unavailable Primary Care Provider Unavailabl e Social History Tobacco Use Types Packs/Day Years Used Date Smoking Tobacco: Never Assessed Sex and Gender Information Value Date Recorded Sex Assigned at Not on file Legal Sex Male 3:14 PM ORCHARD SPRAYER Gender Identity Not on file Sexual Orientation Not on file Plan of Treatment Health Maintenance Due Date Last Done Comments Hepatitis C Virus (HCV) Screening 1940 TdaP Immunization 1940 Pneumococcal Immunization (5 0+ years) (1 of 1 - PCV) 08/07/1991 Zoster Immunization (1 of 2) 08/07/1991 Respiratory Syncytial Virus (RSV) Immunization (Adult) (1 - 1-dose 75+ series) 2016 SARS-COV-2 Immunization (1 - 2023- season) 2023 Influenza Immunization (#1) [...]
--- OUTSIDE RECORDS SUMMARY | 2024-10-09 11:57 | XMS_ITS | Encounter Summary ---
Author Organization [facility] Facility Care Team Providers Care Numerical Control Router Operator Name Role Phone Alen Juarez MD Primary Care Provider [phone] Alen Juarez MD Unavailable [phone] Sam Morales MD Unavailable [phone] Osbaldo June MD Unavailable Encounter Details Date Type Department Care Team (Latest Contact Info) Description 10/13/2017 Orders Only [facility] CLINCONV Provider, MD Edenilson [address] [place] [address] Social History Tobacco Use Types Packs/Day Years Used Date Smoking Tobacco: Never Assessed Sex and Gender Information Value Date Recorded Sex Assigned at Not on file 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 Gender Identity Not on file Sexual Orientation Not on file documented as of this encounter Plan of Treatment Upcoming Encounters Date Type Department Care Team (Latest Contact Info) Description 10/24/2024 9:35 AM CDT Hospital Encounter [facility] Surgery Center Operating Room [address] [facility] [place] [address] [place] [address] [place] [address] 10/24/2024 9:35 AM CDT - 10/24/2024 11:30 AM CDT Surgery [facility] Operating Room [address] [facility] [place] [address] Jimbo Correa MD [address] [facility] [address] [place], [place] [phone] BILATERAL UPPER BLEPHAROPLASTY Scheduled Procedures Name Priority [...] on filedocumented in this encounter Care Teams Numerical Control Router Operator Relationship Specialty Start Date End Date Alen Juarez MD PCP - General 11/10/16 Alen Juarez MD 11/09/16 Sam Morales MD Consulting Physician Cardiology 05/26/21 Osbaldo June MD [address] [facility] [address] [facility] [address] [place] [address] Cardiology 08/06/24 documented as of this encounter
== END 2024-10-09 11:49 | disposition home or self-care (01) ==
PROVIDERS: PCP Family Medicine; Visit Provider Physician Assistant Medical
DX: H54.7 Unspecified visual loss (principal); R55 Syncope and collapse; R51.9 Headache, unspecified; J32.9 Chronic sinusitis, unspecified
CPT/HCPCS: 70553; A9577

== ENCOUNTER 2024-12-25 13:40 | Outpatient (CLI) | payer MEDICARE, SELFPAY ==
--- OUTSIDE RECORDS SUMMARY | 2008-08-13 07:30 | XMS_ITS | Continuity of Care Document ---
Author Organization [facility] Address [address] [place] [address] [place] [address] Phone Care Team Providers Care Heel Sander Name Role Phone Khoi Dubois Unavailable Unavailable Procedures Procedure Date Office/outpatient Visit, Est Corneal Pachymetry Visual Field Examination(s) Office/outpatient Visit, Est Refraction Advance Directives Directive Yes / No Effective Date File Name No Information Encounters Encounter Description Practice Location Reason(s) For Visit Diagnoses Date Provider Providers Copied on Encounter Office/outpat ient Visit, Est [facility], [address] [place] [address] [address], [place], [place], [id number], tel:[phone] [facility] No Information 9 Roneynasmarisel Dalyhil. [address] [place] [address], [address], [place]. tel:[phone] Referring Provider: Khoi marquez, [address] [place] [address], [address]. tel:[phone] [facility], [address] [place] [address] [address], [place], [place], [id number], tel:[phone] [facility] No Information 200 9 Roneynasmarisel Dalyhil. [address] [place] [address], [address], [place]. tel:[phone] Referring Provider: Khoi marquez, [address] [facility] [address], [place], [address]. tel:[phone] Office/outpat ient Visit, [facility] Eye [facility], [address] [facility] [address], [place], [place], [id number], [place] tel:[phone] [facility] No Information 8 Silvino Westfall. [address] [facility] [address], [place], [address], [place]. tel:[phone] Family History Family Member Type Diagnosis Age At Onset No Information Payers Payer name Insurance type Covered constitution party ID Authoriza tion(s) No Information Social History Type Description Quantity Date Captured Comments Sex Male Smoking Status No Information Chief Complaint And Reason For Visit No Information Reason For Referral Reason For Referral No Information History Of Present Illness Encounter Date Complaint History Of Prese nt Illness No Information Functional Status Date Functional Assessmen t No Information Instructions Date Instruction Additional Infor mation No Information Assessments Type Assessment Date No Information Patient Care Teams Name Effective Dates (start - stop) Status Members No Information
--- OUTSIDE RECORDS SUMMARY | 2023-08-16 07:10 | XMS_ITS ---
Author Organization [facility] Address [address] [place], [place] [phone] Care Team Providers Care Drywall Finisher Foreman Name Role Phone POLI TANNER Unavailable [phone] Alen Juarez Unavailable Unavailable REASON FOR VISIT *General care Encounters Encounter Location Date Provider Diagnosis [facility] [address] [place], [place] [phone] 08/16/2023 POLI TANNER Plan Of Treatment No Information Progress Notes * MEGAN CACERESOB:1940 ( 84 yo M)Acc No.[id number]:08/16/2023 Patient: TON COLEMAN Provider: Farooq Tanner DPM :1940 A ge:83 Y S ex:Male Date:08/16/2023 [address] [id number] Subjective: * Chief Complaints: * * General care * Electronic signature of MIKKI VILLANUEVA DPM on 12/25/2024 at 02:43 PM HOSPICE CLINICAL MARKETER Sign off status: Pending * Provider: Farooq Tanner DPM Date: 08/16/2023 Generated for Mary sandoval/Kymberly/eTransmitting on: 1 02/25/2024 02:43 PM HOSPICE CLINICAL MARKETER
--- OUTSIDE RECORDS SUMMARY | 2024-12-25 14:43 | XMS_ITS | Clinical Summary ---
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
--- OUTSIDE RECORDS SUMMARY | 2024-12-25 14:43 | XMS_ITS | Patient Health Record ---
Author Organization [facility] Address [address] [place], [place] [address] Care Team Providers Care Lacquer Coater Name Role Phone POLI PEREZ Unavailable [phone] Alen Juarez Unavailable Unavailable Allergies No Known Allergies Reason For Referral No Information Social History Tobacco Use: Social History Observation Description Date Details (start date - stop date) Never Smoker NA - NA Social History Tobacco Use: Social Info Question Answer Notes Tobacco Use/Smoking Tobacco use: nonsmoker Additional Details Category Social Info Options Details Drugs/Alcohol: Do you drink alcohol? No Plan Of Treatment No Information Insurance Providers Payer Name Payer Address Payer Phone Subscriber Number Group Number Insured Name Patient Relationship to Insured Coverage Start Date Coverage End Date Medicare [facility] [id number] [address] [address] [place], [place] [id number] [phone] [id number] TON CACERES Self - patient is the insured [facility] ([facility]) ATTN CLAIMS [address] [place] [address] [id number] TON CACERES Self - patient is the insured Medical (General) History Medical History History ICD Code acid reflux neuropathy Leg/Feet cramps Steroid Treatment Arthritis Cancer Gout Sleep apnea Diabetic Blood clots Surgical History Surgery Date(Month/Year) Gall Bladder
--- OUTSIDE RECORDS SUMMARY | 2024-12-25 14:43 | XMS_ITS | Clinical Summary ---
Author Organization [facility] Address [facility] [place] [address] Care Team Providers Care Scrap Hooker Name Role Phone Alen Juarez MD Primary Care Provider [phone] Allergies No known active allergies Medications metFORMIN [...] Comments Blood Pressure 136/52 04/08/2019 9:52 AM BASEBALL COACH Pulse 52 04/08/2019 9:52 AM BASEBALL COACH Temperature 36.6 C (97.9 F) 04/08/2019 8:23 AM BASEBALL COACH Respiratory Rate 20 04/08/2019 8:23 AM BASEBALL COACH Oxygen Saturation 96% 04/08/2019 9:52 AM BASEBALL COACH Inhaled Oxygen Concentration - - Weight 127 kg (280 lb) 04/03/2019 2:28 PM BASEBALL COACH Height 185.4 cm (6' 1) 04/03/2019 2:28 PM BASEBALL COACH Body Mass Index 36.94 04/03/2019 2:28 PM BASEBALL COACH Plan of Treatment Health Maintenance Due Date Last Done Comments DTaP, Tdap and Td Vaccines ( 1 - Tdap) 1960 Pneumococcal Vaccine: 50+ Years (1 of 1 - PCV) 08/07/1991 Zoster Vaccines (1 of 2) 08/07/1991 Annual Medicare Wellness Visit 2006 RSV Immunization or 60+ Years (1 - 1-dose 75+ series) 2016 COVID-19 Vaccine (3 - 2024-2 6 season) 2024 04/25/2020, 04/04/2020 Influenza Adult (#1) 2024 11/09/2019 Hepatitis A Vaccines Aged Out No long er eligible based on patient's age to complete this topic Meningococcal B Vaccine Aged Out No l onger eligible based on patient's age to complete this topic Meningococcal Vaccine Aged Out No yari dandy eligible based on patient's age to complete this topic RSV Immunizations Under 20 Months Aged Out No longer eligible b ased on patient's age to complete this topic Medical Devices Implanted Type Area Farmhand Device Identifier Shelf Expiration Date Model / Serial / Lot Iol Wh[employer] Zcboo - [id number] Implanted:Qty: 1 on 04/08/2019 by Felipe Slater MD at [facility] Lens Left: Eye [employer] 10/04/2020 [id number] / [id number] / Insurance [id number] MEDICARE [facility] Care Teams Scrap Hooker Relationship Specialty Start Date End Date Alen Juarez MD [address] [place] [address] PCP - General FAMILY PRACTICE 04/04/19
--- OUTSIDE RECORDS SUMMARY | 2024-12-25 14:43 | XMS_ITS | Encounter Summary ---
Author Organization [facility] Facility Care Team Providers Care Gas Plant Repairer Name Role Phone Alen Juarez MD Primary Care Provider [phone] Alen Juarez MD Unavailable [phone] Sam Morales MD Unavailable + [phone] Osbaldo June MD Unavailable Encounter Details Date Type Department Care Team (Latest Contact Info) Description 10/13/2017 Orders Only [facility] CLINCONV Provider, MD Edenilson [address] [place] [address] Social History Tobacco Use Types Packs/Day Years Used Date Smoking Tobacco: Never Assessed Sex and Gender Information Value Date Recorded Sex Assigned at Not on file Legal Sex Male 5:23 AM DRYWALL SPRAYER Gender Identity Not on file Sexual [...] filedocumented in this encounter Care Teams Gas Plant Repairer Relationship Specialty Start Date End Date Alen Juarez MD PCP - General 11/10/16 Alen Juarez MD 11/09/16 Sam Morales MD Consulting Physician Cardiology 05/26/21 Osbaldo June MD [address] [place] [address] Cardiology 08/06/24 documented as of this encounter
--- OUTSIDE RECORDS SUMMARY | 2024-12-25 14:44 | XMS_ITS | Encounter Summary ---
Author Organization [facility] Facility Care Team Providers Care Chauffeur Airport Limousine Name Role Phone Alen Juarez MD Primary Care Provider + [phone] Unknown, Notinfile Primary Care Provider Unavail able Alen Juarez MD Primary Care Provider + [phone] Alen Juarez MD Unavailable [phone] Sam Morales MD Unavailable + [phone] Osbaldo June MD Unavailable Encounter Details Date Type Department Care Team (Latest Contact Info) Description 11/30/2015 Orders Only [facility] CLINCONV ProviderEdenilson MD [address] [place], [place] [id number] Social History Tobacco Use Types Packs/Day Years Used Date Smoking Tobacco: Never Assessed Sex and Gender Information Value Date Recorded Sex Assigned at Not on file Legal Sex Male 5:23 AM AUTO DAMAGE INSURANCE APPRAISER Gender Identity Not on file Sexual Orientation Not on file documented as of this encounter Functional Status documented as of this encounter Plan of [...] on filedocumented in this encounter Care Teams Chauffeur Airport Limousine Relationship Specialty Start Date End Date Alen Juarez MD PCP - General 11/13/13 11/08/16 Unknown, Notinfile PCP - General 11/09/16 11/09/16 Alen Juarez MD PCP - General 11/10/16 Alen Juarez MD 11/09/16 Sam Morales MD Consulting Physician Cardiology 05/26/21 Osbaldo June MD [address] [place] [address] Cardiology 08/06/24 documented as of this encounter
--- OUTSIDE RECORDS SUMMARY | 2024-12-25 14:44 | XMS_ITS | Clinical Summary ---
Author Organization [facility] Address [address] [place] [address] Care Team Providers Care Elevator Dispatcher Name Role Phone Alen Juarez MD Primary Care Provider [phone] Alen Juarez MD Unavailable [phone] Sam Morales MD Unavailable [phone] Osbaldo June MD Unavailable Allergies No known active allergies Medications DULoxetine (CYMBALTA) 60 mg capsuleIndicati ons:Neuropathic Pain Take 1 capsule (60 mg total) by mouth every morning 3 11/01/19 18 Active metoprolol XL (TOPROL-XL) 50 mg 24 hr tabletIndicatio ns:hypertension Take 1 tablet (50 mg total) by mouth every morning 5 09/13/19 18 Active blood glucose diagnostic strip USE TO CHECK BLOOD SUGAR ONCE DAILY DIRECTED. 07/15/19 21 Active spironolactone (ALDACTONE) 25 mg tabletIndicatio ns:NSTEMI (non-ST elevated myocardial infarction) (HCC),Coronary artery disease of [place] artery of [place] heart with stable angina pectoris,RODY on CPAP,Preoperati ve clearance,Ankle edema Take 1 tablet (25 mg total) by mouth daily 90 tablet 2 03/21/19 24 Active acetaminophen (TYLENOL) 500 mg tabletIndicatio ns:pain Take 2 tablets (1,000 mg total) by mouth as needed for pain 2 tablets 08/06/19 24 Active fluticasone propionate (FLONASE) 50 mcg/actuation nasal sprayIndication s:Allergic Rhinitis Administer 2 sprays into each nostril as needed for allergies 06/11/19 25 Active tamsulosin (FLOMAX) 0.4 mg extended release capsuleIndicati ons:benign prostatic hyperplasia with lower urinary tract sx Take 1 capsule (0.4 mg total) by mouth every morning 05/20/19 25 Active Ozempic 2 mg/dose (8 mg/3 mL) pen injector injectionIndica tions:type 2 diabetes mellitus Inject 2 mg under the skin once a week Takes on Tuesdays07/21/19 25 Active aspirin 81 mg enteric coated tablet Take 1 tablet (81 mg total) by mouth daily Active rosuvastatin (CRESTOR) 10 mg tabletIndicatio ns:NSTEMI (non-ST elevated myocardial infarction) (HCC),Coronary artery disease of [place] artery of [place] heart with stable angina pectoris,RODY on CPAP,Preoperati ve clearance,Ankle edema TAKE 1 TABLET BY MOUTH EVERY DAY 90 tablet 3 12/03/19 25 Active rosuvastatin (CRESTOR) 10 mg tabletIndicatio ns:NSTEMI (non-ST elevated myocardial infarction) (HCC),Coronary artery disease of [place] artery of [place] heart with stable angina pectoris,RODY on CPAP,Preoperati ve clearance,Ankle edema Take 1 tablet (10 mg total) by mouth daily 90 tablet 1 05/22/19 25 025 Discontinued Active Problems Problem Noted Date Diagnosed Date Decreased peripheral vision, bilateral Dermatochalasis of both upper eyelids 08/21/2024 Ectropion of both lower eyelids 08/21/2024 Diabetes mellitus type II, non insulin dependent 07/21/2023 Hypertension 07/21/2023 History of percutaneous coronary intervention 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 11/16/2017 Obstructive sleep apnea (adult) (pediatric) 05/2017 Coronary artery disease invo lving [place] coronary artery of [place] heart without angina pectoris 10/02/2017 Dyslipidemia 10/02/2017 Closed fracture of proximal end of humerus 11/09 Pain in shoulder 11/07/2016 Sensorineural hearing loss of high frequency Tinnitus 11/30/2015 Resolved Problems Problem Noted Date Diagnosed Date Resolved Date NSTEMI (non-ST elevated myoc ardial infarction) 10/02/2017 01/13/2023 Encounters Date Type Department Care Team Description 11/18/2024 8:00 AM CDT Office Visit [facility] Cardiology [address] [place] [address] Jackie Trinh NP Coronary artery disease involving [place] coronary artery of [place] heart without angina pectoris (Primary Dx); Preoperative cardiovascular examination; NSTEMI (non-ST elevated myocardial infarction) (HCC) 11/11/2024 Telephone [facility] Ophthalmology [address] [facility] [address]th [place] [address] Jimbo Correa MD call trans 11/04/2024 4:00 PM CDT Office Visit [facility] Ophthalmology [address] [facility] 2nd [address] [place] [address] Jimbo Correa MD Dermatochalasis of both upper eyelids (Primary Dx) 10/24/2024 8:40 AM CDT - 10/24/2024 10:25 AM CDT Surgery [facility] Operating Room [address] [facility] [place] [address] Jimbo Correa MD BILATERAL UPPER BLEPHAROPLASTY 10/24/2024 8:13 AM CDT Anesthesia Event [facility] [address] [place] [address] Chhaya Neely MD Gardner, Kari Elizabeth, NP 10/24/2024 6:54 AM CDT - 10/24/2024 9:47 AM CDT Hospital Encounter [facility] [address] [facility] [place] [address] Jimbo Correa MD Dermatochalasis of both upper eyelids [H02.831, H02.834] (Primary Dx); Decreased peripheral vision, bilateral [H53.453]; Senile ectropion of both lower eyelids [H02.132, H02.135] Discharge Disposition: Discharge to home or self care 10/18/2024 Telephone [facility] Ophthalmology [address] [place] [address] Jimbo Correa MD 10/07/2024 Telephone [facility] Medical Group Cardiology [address] [place] [address] Osbaldo June MD from Last 3 Months Immunizations Immunization Administration Dates Next Due Influenza, Quad, Adjuvantate d, Intramuscular 11/25/2022,11/10/2020 Influenza, Quadrivalent, Hig h Dose, Preservative Free, Intrr 11/16/2021,11/09/2019 Influenza, Trivalent, High D ose, Split, Preservative Free, Intramuscular 12/25/2023,11/07/2018,11/07/2016 Influenza, Unspecified 10/14/2016 RSV Vaccine, Pref, Recombina nt, Subunit, Adjuvanted, PF, IM (Arexvy) 11/25/2022 ZOSTER Recombinant 07/02/2022 Surgical History Surgery Date Site/Laterality Comments CHOLECYSTECTOMY over 5 years ago CATARACT EXTRACTION 02/13/2019 - 02/13/2020 Bilateral L- 03/2019, R- 2019 CARDIAC STENT PLACEMENT Left x1 stent, over 10 years ago ARM SURGERY Right fracture (metal plate), over 5 years ago LEG SURGERY 02/13/2010 - 02/12/2011 Left leg fracture (metal zurdo placement) LIPOMA RESECTION x2, back of neck, over 10 years ago CARPAL TUNNEL RELEASE Bilateral several, over 5 years ago COLONOSCOPY last one was over 10 years ago VASECTOMY 02/13/1986 - 02/12/1987 REPLACEMENT TOTAL KNEE 02/13/2019 - 02/13/2020 Left OTHER SURGICAL HISTORY 02/13/2023 - 02/13/2024 Left gland surgery behind ear BLEPHAROPLASTY 10/24/2024 Eye/N/A Procedure: BILATERAL UPPER BLEPHAROPLASTY; Surgeon: Jimbo Correa MD; Location: [facility]; Service: Ophthalmology; Laterality: N/A; ECTROPION REPAIR 10/24/2024 Eye/Bilateral Procedure: BILATERAL LOWER EYELID ECTROPION.; Surgeon: Jimbo Correa MD; Location: [facility]; Service: Ophthalmology; Laterality: Bilateral; Medical History Medical History Date Comments Diabetes Sleep apnea Wears CPAP Heart attack (HCC) Ear problems HL (hearing loss) Family History Medical History Relation Name Comments Diabetes Father Family history of diabetes mellitus - (Added by Conv) Diabetes Mother Family history of diabetes mellitus - (Added by Conv) Lung disease Mother Family history of lung disease - (Added by Conv) Diabetes Other Family history of diabetes mellitus - (Added by Conv) Relation Name Status Comments Father Mother Other Social History Tobacco Use Types Packs/Day Years Used Date Smoking Tobacco: Never Passive Smoke Exposure: Past Smokeless Tobacco: Never Tobacco Cessation:Counseling Given: Not Answered Alcohol Use Standard Drinks/Week Comments Not Currently 0 (1 standard drink = 0.6 oz pur e alcohol) 1 or 2 drinks a week. AUDIT-C Answer Date Recorded Q1: How often do you have a drink containing alcohol? Never 10/24/2024 Q2: How many drinks containi ng alcohol do you have on a typical day when you are drinking? Patient does not drink Q3: How often do you have si x or more drinks on one occasion? Never 10/24/2024 Personal Safety Answer Date Recorded Have you ever been in or are you currently in a harmful physical or emotional relationship or is someone making you feel afraid or unsafe? 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 Gender Identity Not on file Sexual Orientation Not on file Last Filed Vital Signs Vital Sign Reading Time Taken Comments Blood Pressure 128/60 11/18/2024 8:07 AM CDT Pulse 73 11/18/2024 8:07 AM CDT Temperature 36.5 C (97.7 F) 10/24/2024 9:10 AM CDT Respiratory Rate 19 10/24/2024 9:40 AM CDT Oxygen Saturation 95% 11/18/2024 8:07 AM CDT Inhaled Oxygen Concentration - - Weight 125.6 kg (277 lb) 11/18/2024 8:07 AM CDT Height 188 cm (6' 2) 11/18/2024 8:07 AM CDT Body Mass Index 35.56 11/18/2024 8:07 AM CDT Plan of Treatment Health Maintenance Due Date Last Done Comments Albumin Creatinine Ratio, Urine 1940 Depression Screening 1940 Dilated Eye Exam 1940 Foot Exam 1940 Hepatitis B Screening 08/07/1958 Well Visit 65+ 2006 Pneumococcal vaccine 65+ (2 of 2 - PCV) 11/05/2011 11/04/2010 Hemoglobin A1C 03/14/2018 09/11/2017, 10/15, 02/03/2015 DTaP/Tdap/Td Vaccine (2 - Td or Tdap) 02/10/2021 02/10/2011 Lipid Panel 09/04/2021 09/04/2020, 08/0 08/2019, 12/07/2018, Additional history exists Zoster Vaccine (3 of 3) 08/27/2022 07/02/2022, 11/04 eGFR 05/12/2023 05/11/2022, 09/04/2020 Covid-19 Vaccine (2024-2 6 season) 2024 12/25/2023, 11/25/2022, 07/02/2022, Additional history exists Influenza Vaccine (#1) 2024 , 11/25/2022, 11/16/2021, Additional history exists Fall Risk Assessment 10/24/2025 10/24/2024 Medical Devices Implanted Type Area Hand Braille Transcriber Device Identifier Shelf Expiration Date Model / Serial / Lot Cardiac Stent X1 N/A: Heart Metal Plate Right: Arm Metal Zurdo Left: Leg Procedures Procedure Name Priority Date/Time Associated Diagnosis Comments POCT GLUCOSE DEVICE Routine 10/24/2024 9 :17 AM CDT REPAIR ECTROPION. 10/24/2024 8:1 5 AM CDT Decreased peripheral vision, bilateral Dermatochalasis of both upper eyelids Ectropion of both lower eyelids, unspecified ectropion type BLEPHAROPLASTY UPPER. 10/24/2024 8:15 AM CDT Decreased peripheral vision, bilateral Dermatochalasis of both upper eyelids Ectropion of both lower eyelids, unspecified ectropion type POCT GLUCOSE DEVICE Routine 10/24/2024 7 :28 AM CDT EGFR STAT 05/11/2022 12:45 AM CDT LIPID PANEL Routine 09/04/2020 11:13 AM CDT Dyslipidemia HEMOGLOBIN A1C Routine 09/11/2017 11:58 AM CDT from Last 3 Months or Most Recently Relevant to Health Maintenance Results * POCT glucose (10/24/2024 9:17 AM CDT) Glucose, POC 165 70 - 199 mg/dL Comment: Interpretive Data Glucose is assumed to be non-fasting. Fasting Glucose reference ranges are: 0 - 150 years: 70 mg/dL - 99 mg/dL Current interpretive data was last revised on 2013. POC Device Number [id number] GEMA GRECO Blood 10/24/2024 9:17 AM CDT 10/24/2024 9:17 AM CDT Jimbo Correa MD LAB POCT ORDERABLES - DE VICE Final Result Performing Organization Address [facility] Co de Phone Number [facility] [address] [employer] [place], [place] [id number] * POCT glucose (10/24/2024 7:28 AM CDT) Glucose, POC 158 70 - 199 mg/dL Comment: Interpretive Data Glucose is assumed to be non-fasting. Fasting Glucose reference ranges are: 0 - 150 years: 70 mg/dL - 99 mg/dL Current interpretive data was last revised on 2013. POC Device Number [id number] GEMA Counsyl Blood 10/24/2024 7:28 AM CDT 10/24/2024 7:28 AM CDT Jimbo Correa MD LAB POCT ORDERABLES - DE VICE Final Result Performing Organization Address [facility] Co de Phone Number [facility] [address] [facility] [employer] [place], [place] [phone] * eGFR (05/11/2022 12:45 AM CDT) eGFR [...] LAB BLOOD ORDERABLES Final Res ult [address] [facility] [place] [address] * (ABNORMAL) Lipid panel (09/04/2020 [...] BLOOD ORDERABLES F inal Result GEMA [address] [facility] [place] [address] * (ABNORMAL) Hemoglobin A1c (09/11/2017 11:58 AM CDT) Hemoglobin A1c % 6.7(H) 4.0 - 5.6 % 09/11/2017 2:30 PM CDT [employer] HISTORICAL RESULTS Comment: ADA 2016 GUIDELINES: Initial Diagnostic Criteria HbA1c Result: Interpretation: <5.7% Normal 5.7-6.4% At risk for diabetes mellitus >=6.5% Consistent with diabetes mellitus Diabetes monitoring Target value (ADA Recommended) <7% 09/11/2017 11:5 8 AM CDT 09/11/2017 1:57 PM CDT us Archie Parker MD LAB BLOOD ORDERABLES Final Result Performing Organization Address City/[facility]/ZIP Co de Phone Number [facility] [employer] HISTORICAL RESULTS from Last 3 Months or Most Recently Relevant to Health Maintenance Insurance MEDICARE RAILROAD [facility] MEDICARE RAILROAD [employer] MEDICARE SUPPLEMENT MEDICARE RAILROAD [employer] MEDICARE SUPPLEMENT Care Teams Elevator Dispatcher Relationship Specialty Start Date End Date Alen Juarez MD PCP - General 11/10/16 Alen Juarez MD 11/09/16 Sam Morales MD Consulting Physician Cardiology 05/26/21 Osbaldo June MD [address] [place] [address] Cardiology 08/06/24
[2024-12-25 14:49] LABS: Albumin Level 4.1 g/dL (3.5-5.1); Anion Gap 6 mmol/L (4-12); Blood Urea Nitrogen 26 mg/dL (9-20); Calcium 9.4 mg/dL (8.4-10.2); Carbon Dioxide 26 mmol/L (22-30); Chloride 104 mmol/L (98-107); Estimated Glomerular Filt Rate 41; Glucose 136 mg/dL (65-110); Potassium 5.1 mmol/L (3.4-5.0); Sodium 136 mmol/L (137-145)
== END 2024-12-25 13:41 | disposition home or self-care (01) ==
PROVIDERS: PCP Family Medicine; Visit Provider Internal Medicine Nephrology
DX: N18.31 Chronic kidney disease, stage 3a (principal)
CPT/HCPCS: 36415; 80069

== ENCOUNTER 2025-02-03 11:42 | Outpatient (CLI) | payer MEDICARE, SELFPAY ==
--- OUTSIDE RECORDS SUMMARY | 2023-08-16 07:10 | XMS_ITS ---
Author Organization [facility] Address [address] [place], [place] [id number] Care Team Providers Care Boiler House Inspector Name Role Phone POLI TANNER Unavailable [phone] Alen Juarez Unavailable Unavailable REASON FOR VISIT *General care Encounters Encounter Location Date Provider Diagnosis [facility] [address] [facility] [address] [place], [place] [phone] 08/16/2023 POLI TANNER Plan Of Treatment No Information Progress Notes * MEGAN CACERESOB:1940 ( 84 yo M)Acc No.[id number]:08/16/2023 Patient: TON COLEMAN Provider: Farooq Tanner DPM :1940 A ge:83 Y S ex:Male Date:08/16/2023 [address] [id number] Subjective: * Chief Complaints: * * General care * Electronic signature of MIKKI VILLANUEVA DPM on 02/03/2025 at 01:33 PM PANEL WIRER Sign off status: Pending * Provider: Farooq Tanner DPM Date: 0 08/16/2023 Generated for Mary sandoval/Kymberly/eTransmitting on: 1 04/06/2024 01:33 PM PANEL WIRER
--- OUTSIDE RECORDS SUMMARY | 2025-02-03 13:34 | XMS_ITS | Patient Health Record ---
Author Organization [facility] Address [address] [place], [place] [address] Care Team Providers Care Type Soldering Machine Tender Name Role Phone POLI PEREZ Unavailable [phone] Alen Juarez Unavailable Unavailable Allergies No Known [...] Coverage Start Date Coverage End Date Medicare [facility] [place] [id number] [address] [address] [place], [place] [id number] [phone] [id number] TON CACERES Self - patient is the insured [facility] ([facility]) ATTN CLAIMS [address] [place] [address] [id number] TON CACERES Self - patient is the insured Medical (General) History Medical History History ICD Code acid reflux neuropathy Leg/Feet cramps Steroid Treatment Arthritis Cancer Gout Sleep apnea Diabetic Blood clots Surgical History Surgery Date(Month/Year) Gall Bladder
--- OUTSIDE RECORDS SUMMARY | 2025-02-03 13:34 | XMS_ITS | Clinical Summary ---
Author Organization 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
--- OUTSIDE RECORDS SUMMARY | 2025-02-03 13:34 | XMS_ITS | Encounter Summary ---
Author Organization [facility] Facility Care Team Providers Care Creative Director Name Role Phone Alen Juarez MD Primary Care Provider + [phone] Unknown, Notinfile Primary Care Provider Unavail able Alen Juarez MD Primary Care Provider + [phone] Alen Juarez MD Unavailable [phone] Sam Morales MD Unavailable + [phone] Osbaldo June MD Unavailable Encounter Details Date Type Department Care Team (Latest Contact Info) Description 11/30/2015 Orders Only [facility] CLINCON[facility] ProviderEdenilson MD [address] [place], [place] [id number] Social History Tobacco Use Types Packs/Day Years Used Date Smoking Tobacco: Never Assessed Sex and Gender Information Value Date Recorded Sex Assigned at Not on file Legal Sex Male 5:23 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
--- OUTSIDE RECORDS SUMMARY | 2025-02-03 13:34 | XMS_ITS | Clinical Summary ---
Author Organization [facility] Address [address] [place] [address] Care Team Providers Care Personal Development Educator Name Role Phone Alen Juarez MD Primary Care Provider Alen Juarez MD Unavailable [phone] Sam Morales MD Unavailable Osbaldo June MD Unavailable Allergies No known active allergies Medications DULoxetine (CYMBALTA) 60 mg capsuleIndicatio ns:Neuropathic Pain Take 1 capsule (60 mg total) by mouth every morning 3 8 Active metoprolol XL (TOPROL-XL) 50 mg 24 hr tabletIndication s:hypertension Take 1 tablet (50 mg total) by mouth every morning 5 8 Active blood glucose diagnostic strip USE TO CHECK BLOOD SUGAR ONCE DAILY DIRECTED. 1 Active spironolactone (ALDACTONE) 25 mg tabletIndication s:NSTEMI (non-ST elevated myocardial infarction) (HCC),Coronary artery disease of sioux artery of sioux heart with stable angina pectoris,RODY on CPAP,Preoperativ e clearance,Ankle edema Take 1 tablet (25 mg total) by mouth daily 90 tablet 2 4 Active acetaminophen (TYLENOL) 500 mg tabletIndication s:pain Take 2 tablets (1,000 mg total) by mouth as needed for pain 2 tablets 4 Active fluticasone propionate (FLONASE) 50 mcg/actuation nasal sprayIndications :Allergic Rhinitis Administer 2 sprays into each nostril as needed for allergies 5 Active tamsulosin (FLOMAX) 0.4 mg extended release capsuleIndicatio ns:benign prostatic hyperplasia with lower urinary tract sx Take 1 capsule (0.4 mg total) by mouth every morning 5 Active Ozempic 2 mg/dose (8 mg/3 mL) pen injector injectionIndicat ions:type 2 diabetes mellitus Inject 2 mg under the skin once a week Takes on Tuesdays 5 Active aspirin 81 mg enteric coated tablet Take 1 tablet (81 mg total) by mouth daily Active rosuvastatin (CRESTOR) 10 mg tabletIndication s:NSTEMI (non-ST elevated myocardial infarction) (HCC),Coronary artery disease of sioux artery of sioux heart with stable angina pectoris,RODY on CPAP,Preoperativ e clearance,Ankle edema TAKE 1 TABLET BY MOUTH EVERY DAY 90 tablet 3 5 Active Active Problems Problem Noted Date Diagnosed Date Decreased peripheral vision, bilateral Dermatochalasis of both upper eyelids 08/21/2024 Ectropion of both lower eyelids 08/21/2024 Diabetes mellitus type II, non insulin dependent 07/21/2023 Hypertension 07/21/2023 History of percutaneous coronary intervention 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 11/16/2017 Obstructive sleep apnea (adult) (pediatric) 05/2017 Coronary artery disease invo lving sioux coronary artery of sioux heart without angina pectoris 10/02/2017 Dyslipidemia 10/02/2017 Closed fracture of proximal end of humerus 11/09 Pain in shoulder 11/07/2016 Sensorineural hearing loss of high frequency Tinnitus 11/30/2015 Resolved Problems Problem Noted Date Diagnosed Date Resolved Date NSTEMI (non-ST elevated myoc ardial infarction) 10/02/2017 01/13/2023 Encounters Date Type Department Care Team Description 11/18/2024 8:00 AM CDT Office Visit [facility] Cardiology [address] [facility] [address] [place] [address] Jackie Trinh NP Coronary artery disease involving sioux coronary artery of sioux heart without angina pectoris (Primary Dx); Preoperative cardiovascular examination; NSTEMI (non-ST elevated myocardial infarction) (HCC) 11/11/2024 Telephone [facility] Medicine Ophthalmology [address] [facility] 6th [place] [address] Jimbo Correa MD call trans 11/04/2024 4:00 PM CDT Office Visit [facility] Medicine Ophthalmology [address] [place] [address] Jimbo Correa MD Dermatochalasis of both upper eyelids (Primary Dx) from Last 3 Months Immunizations Immunization Administration [...] UPPER BLEPHAROPLASTY; Surgeon: Jimbo Correa MD; Location: [facility]PERATING [facility]; Service: Ophthalmology; Laterality: N/A; ECTROPION REPAIR 10/24/2024 Eye/Bilateral Procedure: BILATERAL LOWER EYELID ECTROPION.; Surgeon: Jimbo Correa MD; Location: [facility]; Service: Ophthalmology; Laterality: Bilateral; Medical [...] on file Legal Sex Male 5:23 AM CPC Gender Identity Not on file Sexual Orientation [...] 10/24/2025 10/24/2024 Medical Devices Implanted Type Area Figure Model Device Identifier Shelf Expiration Date Model / [...] BLOOD ORDERABLES Final Res ult GEMA COLON [address] [facility] Department [place] [address] * (ABNORMAL) Lipid panel (09/04/2020 [...] on 2017. Triglycerides 289(H) <=149 mg/dL GEMA COLON Comment: Interpretive Data Ages [...] last revised on 2017. Chol/HDL ratio 4 ROSALINAMARIE Blood specimen (specimen) 09/04/2020 11:13 AM CDT 09/04/2020 11:38 AM CDT us Sam Morales MD LAB BLOOD ORDERABLES F inal Result GEMA [address] [facility] [place] [address] * (ABNORMAL) Hemoglobin A1c (09/11/2017 [...] Parker MD LAB BLOOD ORDERABLES Final Result [facility] HISTORICAL RESULTS from Last 3 Months or Most Recently Relevant to Health Maintenance Insurance MEDICARE RAILROAD [facility] [address] [place] [id number] MEDICARE RAILROAD [employer] MEDICARE SUPPLEMENT [address] [id number] MEDICARE RAILROAD [facility] MEDICARE SUPPLEMENT Care Teams Personal Development Educator Relationship Specialty Start Date End Date Alen Juarez MD PCP - General 11/10/16 Alen Juarez MD 11/09/16 Sam Morales MD Consulting Physician Cardiology 05/26/21 Osbaldo June MD [address] [place] [address] Cardiology 08/06/24
--- OUTSIDE RECORDS SUMMARY | 2025-02-03 13:34 | XMS_ITS | Encounter Summary ---
Author Organization [facility] Facility Care Team Providers Care Patternmaker Apprentice Wood Name Role Phone Alen Juarez MD Primary Care Provider [phone] Alen Juarez MD Unavailable [phone] Sam Morales MD Unavailable [phone] Osbaldo June MD Unavailable Encounter Details Date Type Department Care Team (Latest Contact Info) Description 10/13/2017 Orders Only [facility] CLINCONV Provider, MD Edenilson [address] [place] [address] Social History Tobacco Use Types Packs/Day Years Used Date Smoking Tobacco: Never Assessed Sex and Gender Information Value Date Recorded Sex Assigned at Not on file Legal Sex Male 5:23 AM HEALTH PRACTICE MANAGER Gender Identity Not on file Sexual [...] on filedocumented in this encounter Care Teams Patternmaker Apprentice Wood Relationship Specialty Start Date End Date Alen Juarez MD PCP - General 11/10/16 Alen Juarze MD 11/09/16 Sam Morales MD Consulting Physician Cardiology 05/26/21 Osbaldo June MD [address] [place] [address] Cardiology 08/06/24 documented as of this encounter
[2025-02-03 13:49] LABS: Hematocrit 39.4 % (42.0-52.0); Hemoglobin 12.5 g/dL (14.0-18.0); Immature Granulocyte Percent A 0.4 % (0-0.5); Lymphocytes Absolute Auto 1.79 K/mm3 (0.9-3.2); Mean Corpuscular HGB Conc 31.7 g/dl (32-36); Mean Corpuscular Hemoglobin 30.3 pg (26-34); Mean Corpuscular Volume 95.4 fl (80-100); Nucleated Red Blood Cells Absolute Auto 0.000 K/mm3 (0.0-0.012); Nucleated Red Blood Cells Perc 0.0 % (0.0-0.2); Platelet Count Result 202 k/mm3 (150-375); Red Blood Count 4.13 M/mm3 (4.6-6.20); White Blood Count 8.2 K/mm3 (4.5-10.0)
[2025-02-03 13:59] LABS: Add Urine Microscopic? NO; Appearance Urine Clear (Clear); Glucose Urine UA Negative (Negative); Leukocyte Esterase Ur Negative LEU/UL (Negative); Nitrate Urine Negative (Negative); Specific Grav Ur 1.019 (1.001-1.035)
[2025-02-03 14:04] LABS: INR 1.1; Prothrombin Time 14.2 Seconds (11.1-14.7)
[2025-02-03 14:05] LABS: Partial Thromboplastin Time 28.2 Seconds (22.3-36.8)
[2025-02-03 15:00] LABS: MRSA (PCR) NOT DETECTED (NOT DETECTE)
== END 2025-02-03 11:43 | disposition home or self-care (01) ==
LOC: ANHSURGERY 11:46
PROVIDERS: PCP Family Medicine; Visit Provider Orthopaedic Surgery
DX: M17.11 Unilateral primary osteoarthritis, right knee (principal); Z01.818 Encounter for other preprocedural examination
CPT/HCPCS: 80307; 81003; 85025; 85610; 85730; 87641

== ENCOUNTER 2025-02-11 12:37 | Emergency (ER) | payer MEDICARE, SELFPAY ==
--- OUTSIDE RECORDS SUMMARY | 2023-08-16 07:10 | XMS_ITS ---
Author Organization [facility] Address [address] [place], [place] [phone] Care Team Providers Care Maintenance Carpenter Name Role Phone POLI TANNER Unavailable [phone] Alen Juarez Unavailable Unavailable REASON FOR VISIT *General care Encounters Encounter Location Date Provider Diagnosis [facility] [address] [place], [place] [phone] 08/16/2023 POLI TANNER Plan Of Treatment No Information Progress Notes * MEGAN CACERESOB:1940 ( 84 yo M)Acc No.[id number]:08/16/2023 Patient: TON COLEMAN Provider: Farooq Tanner DPM :1940 A ge:83 Y S ex:Male Date:08/16/2023 [address] [id number] Subjective: * Chief Complaints: * * General care * Electronic signature of MIKKI VILLANUEVA DPM on 02/11/2025 at 12:50 PM SCHOOL LABORATORY TECHNICIAN Sign off status: Pending * Provider: Farooq Tanner DPM Date: 0 08/16/2023 Generated for Mary sandoval/Kymberly/eTransmitting on: 1 12:50 PM SCHOOL LABORATORY TECHNICIAN
[2025-02-11 12:51] VITALS: BP 144/62; PULSE 84; RESP 18; TEMP 36; O2SAT 97
--- OUTSIDE RECORDS SUMMARY | 2025-02-11 12:51 | XMS_ITS | Encounter Summary ---
Author Organization [facility] Facility Care Team Providers Care Certified Professional Ergonomist Name Role Phone Alen Juarez MD Primary Care Provider + [phone] Unknown, Notinfile Primary Care Provider Unavail able Alen Juarez MD Primary Care Provider [phone] Alen Juarez MD Unavailable [phone] Sam Morales MD Unavailable [phone] Osbaldo June MD Unavailable Encounter Details Date Type Department Care Team (Latest Contact Info) Description 11/30/2015 Orders Only [facility] CLINCONV ProviderEdenilson MD [address] [place], [place] [id number] Social History Tobacco Use Types Packs/Day Years Used Date Smoking Tobacco: Never Assessed Sex and Gender Information Value Date Recorded Sex Assigned at Not on file Legal Sex Male 5: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
--- OUTSIDE RECORDS SUMMARY | 2025-02-11 12:51 | XMS_ITS | Clinical Summary ---
Author Organization [facility] Address [facility] [place] [address] Care Team Providers Care Ramp Boss Name Role Phone Alen Juarez MD Primary Care Provider [phone] Allergies No known active allergies Medications metFORMIN [...] Comments Blood Pressure 136/52 04/08/2019 9:52 AM PAPER CONE MAKER Pulse 52 04/08/2019 9:52 AM PAPER CONE MAKER Temperature 36.6 C (97.9 F) 04/08/2019 8:23 AM PAPER CONE MAKER Respiratory Rate 20 04/08/2019 8:23 AM PAPER CONE MAKER Oxygen Saturation 96% 04/08/2019 9:52 AM PAPER CONE MAKER Inhaled Oxygen Concentration - - Weight 127 kg (280 lb) 04/03/2019 2:28 PM PAPER CONE MAKER Height 185.4 cm (6' 1) 04/03/2019 2:28 PM PAPER CONE MAKER Body Mass Index 36.94 04/03/2019 2:28 PM PAPER CONE MAKER Plan of Treatment Health Maintenance Due Date [...] this topic Medical Devices Implanted Type Area Entry Level Programmer Device Identifier Shelf Expiration Date Model / Serial / Lot Iol [employer] Zcboo - [id number] Implanted:Qty: 1 on 04/08/2019 by Felipe Slater MD at [facility] Lens Left: Eye [employer] 10/04/2020 [id number] / [id number] / Insurance [address] MEDICARE [facility] Care Teams Ramp Boss Relationship Specialty Start Date End Date Alen Juarez MD [address] [address] PCP - General FAMILY PRACTICE 04/04/19
--- OUTSIDE RECORDS SUMMARY | 2025-02-11 12:51 | XMS_ITS | Clinical Summary ---
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,RODY on CPAP,Preoperativ [...] (pediatric) 05/2017 Coronary artery disease invo lving lovelock coronary artery of lovelock heart without angina pectoris 10/02/2017 Dyslipidemia 10/02/2017 Closed fracture of proximal end of humerus 11/09 Pain in shoulder 11/07/2016 Sensorineural hearing loss of high frequency Tinnitus 11/30/2015 Resolved Problems Problem Noted Date Diagnosed Date Resolved Date NSTEMI (non-ST elevated myoc ardial infarction) 10/02/2017 01/13/2023 Encounters Date Type Department Care Team Description 11/18/2024 8:00 AM CDT Office Visit [facility] Cardiology [address] [facility] [address] [place] [address] Jackie Trinh NP Coronary artery disease involving lovelock coronary artery of lovelock heart without angina pectoris (Primary Dx); Preoperative cardiovascular examination; NSTEMI (non-ST elevated myocardial infarction) (HCC) from Last 3 Months Immunizations Immunization Administration [...] UPPER BLEPHAROPLASTY; Surgeon: Jimbo Correa MD; Location: [facility]; Service: Ophthalmology; Laterality: N/A; ECTROPION REPAIR 10/24/2024 Eye/Bilateral Procedure: BILATERAL LOWER EYELID ECTROPION.; Surgeon: Jimbo Correa MD; Location: [facility]; Service: Ophthalmology; Laterality: Bilateral; [...] on file 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 Gender Identity Not on file Sexual Orientation [...] PCV) 11/05/2011 11/04/2010 Hemoglobin A1C 03/14/2018 09/11/2017, 09/10/2016, 02/03/2015 DTaP/Tdap/Td Vaccine (2 - Td or Tdap) 02/10/2021 02/10/2011 Lipid Panel 09/04/2021 09/04/2020, 08/0 08/2019, 12/07/2018, Additional history exists Zoster Vaccine (3 of 3) 08/27/2022 07/02/2022, 11/04 eGFR 05/12/2023 05/11/2022, 09/04/2020 Covid-19 Vaccine (2024- 6 season) 2024 12/25/2023, 11/25/2022, 07/02/2022, Additional history exists Influenza Vaccine (#1) 2024 , 11/25/2022, 11/16/2021, Additional history exists Fall Risk Assessment 10/24/2025 10/24/2024 Medical Devices Implanted Type Area Weather Forecaster Device Identifier Shelf Expiration Date Model / [...] BLOOD ORDERABLES Final Res ult GEMA COLON [address] [facility] Department [place] [address] * (ABNORMAL) Lipid panel (09/04/2020 [...] BLOOD ORDERABLES F inal Result GEMA [address] [facility] [place] [address] * (ABNORMAL) Hemoglobin A1c (09/11/2017 11:58 AM [...] BLOOD ORDERABLES Final Result Performing Organization Address [facility] de Phone Number [facility] HISTORICAL RESULTS from Last 3 Months or Most Recently Relevant to Health Maintenance Insurance MEDICARE RAILROAD [facility] [address] [id number] MED[address] MEDICARE SUPPLEMENT [address] [id number] [place] [address] MEDICARE SUPPLEMENT Care Teams Hose Inspector Relationship Specialty Start Date End Date Alen Juarez MD PCP - General 11/10/16 Alen Juarez MD 11/09/16 Sam Morales MD Consulting Physician Cardiology 05/26/21 Osbaldo June MD [address] [place] [address] Cardiology 08/06/24
--- OUTSIDE RECORDS SUMMARY | 2025-02-11 12:51 | XMS_ITS | Encounter Summary ---
Author Organization [facility] Facility Care Team Providers Care Nanotechnician Name Role Phone Alen Juarez MD Primary Care Provider [phone] Alen Juarez MD Unavailable [phone] Sam Morales MD Unavailable + [phone] Osbaldo June MD Unavailable Encounter Details Date Type Department Care Team (Latest Contact Info) Description 10/13/2017 Orders Only [facility] CLINCONV Provider, MD Edenilson [address] [place] [address] Social History Tobacco Use Types Packs/Day Years Used Date Smoking Tobacco: Never Assessed Sex and Gender Information Value Date Recorded Sex Assigned at Not on file 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
--- OUTSIDE RECORDS SUMMARY | 2025-02-11 12:51 | XMS_ITS | Clinical Summary ---
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
--- OUTSIDE RECORDS SUMMARY | 2025-02-11 12:51 | XMS_ITS | Patient Health Record ---
Author Organization [facility] Address [address] [place], [place] [id number] Care Team Providers Care Test Analyst Name Role Phone POLI PEREZ Unavailable [phone] Alen Juarez Unavailable Unavailable Allergies No Known [...] Coverage Start Date Coverage End Date Medicare [facility] [place] [id number] [address] [address] [place], [place] [id number] TON CACERES Self - patient is the insured [facility] [place]Note 2] ([facility]) ATTN CLAIMS [address] [place] [address] [id number] TON CACERES Self - patient is the insured Medical (General) History Medical History History ICD Code acid reflux neuropathy Leg/Feet cramps Steroid Treatment Arthritis Cancer Gout Sleep apnea Diabetic Blood clots Surgical History Surgery Date(Month/Year) Gall Bladder
[2025-02-11 12:58] LABS: EDSTREPNEGPOS1 Negative (Negative)
[2025-02-11 13:05] LABS: EDCOVIDSCREEN Positive (Negative)
[2025-02-11 13:06] LABS: EDINFLUASCREEN Negative (Negative); EDINFLUBSCREEN Negative (Negative)
--- NOTE | 2025-02-11 13:55 | ED_ITS ---
HPI - General Adult General Chief complaint: Upper Respiratory Infection Stated complaint: flu Source: patient Mode of arrival: ambulatory Limitations: no limitations History of Present Illness HPI narrative: Pt presents for evaluation of sick symptoms for the past three days. Symptoms include cough and sore throat. He denies any fever, chills, nausea, vomiting, diarrhea. No recent sick contacts to his knowledge. He has tried taking NyQuil for symptoms. He has an upcoming right knee replacement plan for one week from now. He came in for testing today to ensure he could move forward with his surgery. He states his symptoms are mild in severity. Related Data Home Medications ?Medication ?Instructions ?Recorded ?Confirmed ?Last Taken ?Type nystatin-triamcinolone 100,000 1 applic topical PRN SC N YEAST 07/14/23 02/03/25 Unknown History unit/g-0.1 % topical cream INFECTIONS rosuvastatin 10 mg tablet 10 mg PO DAILY 07/14/2301/1407/31/23 History empagliflozin 10 mg tablet 10 mg PO DAILY 07/09/24 Unknown History (Jardiance) aspirin 81 mg tablet,delayed 81 mg PO DAILY 02/03/25 1 04/06/24 Unknown History release (Adult Low Dose Aspirin) Allergies Allergy/AdvReac Type Severity Reaction Status Date / Time clindamycin Allergy Unknown Rash Verified 02/11/25 12:45 tetracycline Allergy Unknown Rash Verified 02/11/25 12:45 Review of Systems Review of Systems: CONSTITUTIONAL: Denies fever, chills, or sweats. EYES: Denies visual changes, redness, or discharge. ENT: Reports sore throat. Denies rhinorrhea, congestion, or otalgia. CARDIOVASCULAR: Denies chest pain, palpitations, or edema. RESPIRATORY: Reports cough. Denies dyspnea. GASTROINTESTINAL: Denies abdominal pain, nausea, vomiting, or diarrhea. GENITOURINARY: Denies dysuria or hematuria. SKIN: Denies rash or itching. MUSCULOSKELETAL: Denies back pain, joint pain, or myalgia. NEUROLOGIC: Denies headache, numbness, dizziness, or weakness. PSYCHIATRIC: Denies anxiety or depression. [facility] Past Medical History Medical History Fatigue Postauricular adenopathy Trigger ring finger of right hand Right knee DJD RODY (obstructive sleep apnea) SI joint arthritis Right hip pain Preoperative clearance Pre-op testing Screening for prostate cancer Persistent dry cough COVID-19 Effusion, left knee Degenerative joint disease, ankle, left Left knee DJD Left ankle pain BMI 38.0-38.9,adult Degenerative joint disease of knee Left knee pain Candidiasis Lumbar radicular pain Encounter for screening colonoscopy Weak urinary stream Polyuria Piriformis syndrome of left side Anemia, unspecified B12 deficiency anemia Essential (primary) hypertension Low kidney function Mixed hyperlipidemia Sleep apnea in adult Type 2 diabetes mellitus without complications Surgical History Surgical History S/P total knee arthroplasty LT TKA 08/01/23 History of surgery on arm Hx of heart artery stent Family History Family History Father Family history of diabetes mellitus in first degree relative Tuberculosis Diabetes mellitus Mother Family history of diabetes mellitus in first degree relative Acute myocardial infarction COPD (chronic obstructive pulmonary disease) Tobacco abuse Sibling Pacemaker Hypertension Diabetes mellitus Other Family history of gout Social History Social History Smoking status: Never smoker Second hand tobacco smoke exposure: Yes Additional smoking assessment comments: DENIES ANY FORM OF TOBACCO USE Alcohol intake: current Substance use: never Substance use type: does not use Lack of Transportation: No Lack of Food: Never True Current Housing: I Have Housing Concerned About Future Housing: No Difficulty Paying Gas/Electric Bills: No Difficulty Paying for Meds: No Currently Unemployed: No Education: Associate Degree Difficulty w/ Childcare or Family Care: No Living arrangements: with family Additional living arrangements comments: 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 HEAD: Normocephalic, atraumatic. EYES: PERRLA and EOMI. ENT: Nares clear, no rhinorrhea or epistaxis. Mucous membranes moist. Oropharynx without tonsillar hypertrophy exudate or other lesions. Bilateral TMs pearly sheridan nonbulging NECK: Supple. No adenopathy or masses. No carotid bruits or JVD CHEST: Clear to auscultation. No respiratory distress. No wheezes rales or rhonchi HEART: Regular rate and rhythm. No murmur heard. Normal peripheral pulses. ABDOMEN: Soft, nontender, nondistended, normal active bowel sounds. EXTREMITIES: Normal range of motion. No edema. SKIN: Warm, dry, no rash. NEURO: No focal deficits. Alert and oriented x3. PSYCH: Normal mood and affect. Course Course Emergency Course: This is an 84-year-old male who presented for evaluation of sick symptoms. His COVID test was positive. he appears well on physical exam. Saturations are normal. Advised on supportive care measures. Recommended he contact his surgeon today to inform them that he tested positive for COVID to determine whether him proceed with surgery on his planned surgery date. He will take OTC agents as needed for his symptoms. He should follow up with his PCP as go to the ER for worsening symptoms. Pt in agreement with plan of care. Level of Care: Express Care Visit Vital Signs Vital signs: Vital Signs Temperature 36.0 C L 02/11/25 12:51 Pulse Rate 84 02/11/25 12:51 Respiratory Rate 18 02/11/25 12:51 Blood Pressure 144/62 H 02/11/25 12:51 Pulse Oximetry 97 02/11/25 12:51 Oxygen Delivery Room Air 02/11/25 12:51 Temperature 36.0 C L 02/11/25 12:51 Pulse Rate 84 02/11/25 12:51 Respiratory Rate 18 02/11/25 12:51 Blood Pressure 144/62 H 02/11/25 12:51 Pulse Oximetry 97 02/11/25 12:51 Oxygen Delivery Room Air 02/11/25 12:51 MDM Differential Diagnosis Differential Diagnosis: covid vs flu vs other acute viral syndrome vs other Lab Data Labs: Lab Results 02/11/25 02/11/25 Range/Units 12:57 13:04 POC Influenza A Ag Negative (Negative) POC Influenza B Ag Negative (Negative) POC SARS CoV-2 Ag Positive (Negative) POC Grp A Strep Screen Negative (Negative) Discharge Plan Discharge Clinical Impression: COVID Clinical Impression: (Ruled Out): CKD (chronic kidney disease) stage 3, GFR 30-59 ml/min Patient Disposition: Home Condition: Stable Instructions: Antibiotic Form, COVID-19 (Coronavirus Disease 2019) (ED) Additional Instructions: PLEASE CALL YOUR SURGEON TODAY TO INFORM THEM THAT YOU TESTED POSITIVE FOR COVID Patient Language: Georgian Prescriptions: No Action duloxetine 60 mg capsule,delayed release(DR/EC) See Rx Instructions .ROUTE .COMPLEX Qty: 90 2RF Dose Instruction: TAKE 1 CAPSULE BY MOUTH EVERY DAY Patient Comments: TAKES AT HS Rx Instructions: TAKE 1 CAPSULE BY MOUTH EVERY DAY Jardiance 10 mg tablet 10 mg PO DAILY tamsulosin [Flomax] 0.4 mg capsule 0.4 mg PO DAILY Qty: 30 0RF rosuvastatin 10 mg tablet 10 mg PO DAILY nystatin-triamcinolone 100,000-0.1 unit/g-% cream 1 applic TOPICAL PRN PRN (Reason: YEAST INFECTIONS) aspirin [Adult Low Dose Aspirin] 81 mg tablet,delayed release (DR/EC) 81 mg PO DAILY OneTouch Ultra Test Strip See Rx Instructions .ROUTE .COMPLEX Qty: 100 2RF Dose Instruction: USE TO CHECK BLOOD SUGAR ONCE DAILY DIRECTED. Rx Instructions: USE TO CHECK BLOOD SUGAR ONCE DAILY DIRECTED. metoprolol succinate 50 mg tablet extended release 24 hr 50 mg PO DAILY Qty: 90 1RF Patient Comments: TAKES AT HS spironolactone 25 mg tablet 25 mg PO DAILY Qty: 90 0RF Patient Comments: QAM meloxicam 7.5 mg tablet See Rx Instructions .ROUTE .COMPLEX Qty: 60 0RF Dose Instruction: 7.5 MG ORALLY TWICE A DAY FOR 30 DAYS Rx Instructions: 7.5 MG ORALLY TWICE A DAY FOR 30 DAYS chlorhexidine gluconate [Hibiclens] 4 % liquid 1 applic topical ONCE Qty: 237 0RF Rx Instructions: Cleanse operative extremity, in shower, every day for 1 week prior to surgical procedure. Ozempic 2 mg/dose (8 mg/3 mL) pen injector 2 mg subcut WEEKLY Qty: 3 2RF Patient Comments: TAKES ON TUESDAYS FOR DM Follow-up/Referrals: Alen Juarez MD [Primary Care Provider, [facility]] Time of Disposition: 13:34
== END 2025-02-11 13:37 | disposition home or self-care (01) ==
PROVIDERS: Emergency Provider Nurse Practitioner; PCP Family Medicine
DX: U07.1 COVID-19 (principal); I10 Essential (primary) hypertension; E11.9 Type 2 diabetes mellitus without complications; Z79.84 Long term (current) use of oral hypoglycemic drugs; Z79.85 Long-term (current) use of injectable non-insulin antidiabetic drugs; E78.2 Mixed hyperlipidemia; M17.0 Bilateral primary osteoarthritis of knee; M19.072 Primary osteoarthritis, left ankle and foot; Z96.652 Presence of left artificial knee joint; Z95.5 Presence of coronary angioplasty implant and graft; Z79.82 Long term (current) use of aspirin
CPT/HCPCS: 87081; 87426; 87804; 87880; 99213; G0463